=== PATIENT | female | born 1990 | race Caucasian/White ===

== ENCOUNTER 2018-09-13 22:42 | Emergency (ER) | payer OTHER, SELFPAY ==
[2018-09-13 23:15] LABS: Urine Blood 1+ (NEG); Urine Glucose NEGATIVE (NEG); Urine Protein NEGATIVE (NEG); Urine Specific Gravity 1.025 (1.005-1.030); Urine pH 6.5 (5.0-7.0)
[2018-09-13 23:26] LABS: Urine Bacteria LOADED /HPF (<20); Urine Culture Reflex Order REFLEXED; Urine RBC <5 /HPF (NONE SEEN)
--- NOTE | 2018-09-13 23:33 | ER ---
Nurse's Notes [facility] Name: Rebecca West Age: 28 yrs Sex: Female : 1990 Arrival Date: 09/13/2018 Time: 22:43 Bed 6 Private MD: Diagnosis: Urinary tract infection, site not specified Presentation: 09/13 22:51 Presenting complaint: Patient states: having sexual intercourse with boyfriend at 2200, ak1 c/o left flank pain after "feeling IUD move" pt stated she could "feel" the string after intercourse. Transition of care: patient was not received from another setting of care. Onset of symptoms was September 13, 2018. Risk Assessment: Do you want to hurt yourself or someone else? Patient reports no desire to harm self or others. Initial Sepsis Screen: Does the patient meet any 2 criteria? No. Patient's initial sepsis screen is negative. Does the patient have a suspected source of infection? No. Patient's initial sepsis screen is negative. Care prior to arrival: None. 22:51 Method Of Arrival: EMS: [facility] ak1 22:51 Acuity: MARCOS 4 ak1 Triage Assessment: 22:53 General: Appears in no apparent distress. Behavior is calm, cooperative. Pain: ak1 Complains of pain in left flank. EENT: No signs and/or symptoms were reported regarding the EENT system. Neuro: No deficits noted. Cardiovascular: No deficits noted. Respiratory: No deficits noted. GI: No signs and/or symptoms were reported involving the gastrointestinal system. : Reports possible dislodged IUD s/p sexual intercourse. Derm: No signs and/or symptoms reported regarding the dermatologic system. Musculoskeletal: No signs and/or symptoms reported regarding the musculoskeletal system. 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 - Social history:: Smoking status: Patient uses tobacco products, smokes one-half pack cigarettes per day. - Ebola Screening: : No symptoms or risks identified at this time. Screenin:54 Abuse screen: Denies threats or abuse. Denies injuries from another. Nutritional ak1 screening: No deficits noted. Tuberculosis screening: No symptoms or risk factors identified. Fall Risk None identified. Assessment: 22:50 General: Appears in no apparent distress. uncomfortable, Behavior is calm, cooperative, rr5 appropriate for age. 22:50 Pain: Complains of pain in left flank Pain does not radiate. Pain at worst was 9 out of rr5 10 on a pain scale. Quality of pain is described as aching, Pain began gradually, Is intermittent. Neuro: Level of Consciousness is awake, alert, obeys commands, Oriented to person, place, time, situation, Appropriate for age. Cardiovascular: Capillary refill < 3 seconds Patient's skin is warm and dry. Respiratory: Airway is patent Respiratory effort is even, unlabored, Respiratory pattern is regular, symmetrical. GI: No signs and/or symptoms were reported involving the gastrointestinal system. : Reports pain in left flank(s), IUD problem after sexual intercourse. EENT: No signs and/or symptoms were reported regarding the EENT system. Derm: Skin is intact, is healthy with good turgor, Skin temperature is warm. Musculoskeletal: Capillary refill < 3 seconds. 23:15 Reassessment: Patient appears in no apparent distress at this time. No changes from rr5 previously documented assessment. awaiting for result. 23:44 Reassessment: Patient appears in no apparent distress at this time. Patient is alert, rr5 oriented x 3, equal unlabored respirations, skin warm/dry/pink. discharge instruction given and explained without complaints made. Vital Signs: 22:50 BP 125 / 83; Pulse 90; Resp 16; Temp 98.9(TE); Pulse Ox 100% on R/A; Weight 49.9 kg ak1 (R); Height 5 ft. 1 in. (154.94 cm) (R); Pain 9/10; 23:44 BP 115 / 80; Pulse 90; Resp 17; Temp 99.1; Pulse Ox 100% on R/A; rr5 22:50 Body Mass Index 20.78 (49.90 kg, 154.94 cm) ak1 ED Course: 22:43 Patient arrived in ED. am2 22:50 [facility]C [facility] kb 22:50 Ted Gutiérrez MD is Attending Physician. kb 22:50 Ivon Florez, RN is Primary Nurse. ak1 22:52 Triage completed. ak1 22:53 Arm band placed on Patient placed in an exam room, on a stretcher, on pulse oximetry, ak1 Patient notified of wait time. 22:54 Patient has correct armband on for positive identification. Bed in low position. Call ak1 light in reach. Side rails up X 1. Pulse ox on. NIBP on. 23:15 Transvaginal Study Probe In Process Unspecified. EDMS 23:15 Ultrasound completed. Patient tolerated well. Notified BUSINESS SUPPORT MANAGER/PA YANIRA. sg3 23:44 No provider procedures requiring assistance completed. Patient did not have IV access rr5 during this emergency room visit. Administered Medications: 23:30 Drug: Macrobid 100 mg Route: PO; rr5 23:43 Follow up: Response: Medication administered at discharge. rr5 Outcome: 23:32 Discharge ordered by MD. kb 23:44 Discharged to home ambulatory. rr5 23:44 Condition: stable 23:44 Discharge instructions given to patient, Instructed on discharge instructions, follow up and referral plans. medication usage, Demonstrated understanding of instructions, follow-up care, medications, Prescriptions given X 1. 23:45 Patient left the ED. rr5 Addendum: 09/17/2018 10:35 Addendum: Culture Results: Positive urine culture. No further action required. Bacteria s s sensitive to prescribed antibiotic. Signatures: Dispatcher [employer] EDLA Yanira Rendon, PROCESSING ENGINEER-C PROCESSING ENGINEER-Annalisa Luna RN RN Ivon Florez, RN RN ak1 Shannon Del Toro Sarah sg3 Kam Andrade RN RN rr5
--- NOTE | 2018-09-13 23:33 | EDPHYS ---
Physician Documentation [facility] Name: Rebecca West Age: 28 yrs Sex: Female : 1990 Arrival Date: 09/13/2018 Time: 22:43 Bed 6 Private MD: ED Physician Ted Gutiérrez HPI: 09/13 23:30 This 28 yrs old Female presents to ER via EMS with complaints of IUD problem. kb 23:30 The patient presents with thinks IUD moved. Onset: The symptoms/episode began/occurred kb just prior to arrival. Modifying factors: The symptoms are alleviated by nothing, the symptoms are aggravated by sexual intercourse. Associated signs and symptoms: The patient has no apparent associated signs or symptoms. Severity of symptoms: At their worst the symptoms were moderate, in the emergency department the symptoms are unchanged. The patient's method of control includes IUD. The patient has not experienced similar symptoms in the past. The patient has not recently seen a physician. Pt reports she was having intercourse and started having sharp pains. States "I felt my IUD move out of place.". 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 - Social history:: Smoking status: Patient uses tobacco products, smokes one-half pack cigarettes per day. - Ebola Screening: : No symptoms or risks identified at this time. ROS: 23:30 Constitutional: Negative for fever, chills, and weight loss, Cardiovascular: Negative kb for chest pain, palpitations, and edema, Respiratory: Negative for shortness of breath, cough, wheezing, and pleuritic chest pain, Abdomen/GI: Negative for abdominal pain, nausea, vomiting, diarrhea, and constipation, Back: Negative for injury and pain, MS/Extremity: Negative for injury and deformity, Skin: Negative for injury, rash, and discoloration, Neuro: Negative for headache, weakness, numbness, tingling, and seizure. 23:30 : Positive for pelvic pain. Exam: 23:30 Constitutional: This is a well developed, well nourished patient who is awake, alert, kb and in no acute distress. Head/Face: Normocephalic, atraumatic. Chest/axilla: Normal chest wall appearance and motion. Nontender with no deformity. No lesions are appreciated. Cardiovascular: Regular rate and rhythm with a normal S1 and S2. No gallops, murmurs, or rubs. Normal PMI, no JVD. No pulse deficits. Respiratory: Lungs have equal breath sounds bilaterally, clear to auscultation and percussion. No rales, rhonchi or wheezes noted. No increased work of breathing, no retractions or nasal flaring. Abdomen/GI: Soft, non-tender, with normal bowel sounds. No distension or tympany. No guarding or rebound. No evidence of tenderness throughout. Back: No spinal tenderness. No costovertebral tenderness. Full range of motion. Skin: Warm, dry with normal turgor. Normal color with no rashes, no lesions, and no evidence of cellulitis. MS/ Extremity: Pulses equal, no cyanosis. Neurovascular intact. Full, normal range of motion. Neuro: Awake and alert, GCS 15, oriented to person, place, time, and situation. Cranial nerves II-XII grossly intact. Motor strength 5/5 in all extremities. Sensory grossly intact. Cerebellar exam normal. Normal gait. Vital Signs: 22:50 BP 125 / 83; Pulse 90; Resp 16; Temp 98.9(TE); Pulse Ox 100% on R/A; Weight 49.9 kg ak1 (R); Height 5 ft. 1 in. (154.94 cm) (R); Pain 9/10; 23:44 BP 115 / 80; Pulse 90; Resp 17; Temp 99.1; Pulse Ox 100% on R/A; rr5 22:50 Body Mass Index 20.78 (49.90 kg, 154.94 cm) ak1 MDM: 22:50 Patient medically screened. kb 23:29 Data reviewed: vital signs, nurses notes. Data interpreted: Pulse oximetry: on room air kb is 100 %. Interpretation: normal. Counseling: I had a detailed discussion with the patient and/or guardian regarding: the historical points, exam findings, and any diagnostic results supporting the discharge/admit diagnosis, lab results, radiology results, the need for outpatient follow up, an OB/Gyne specialist, to return to the emergency department if symptoms worsen or persist or if there are any questions or concerns that arise at home. 09/13 23:04 Order name: Urine Microscopic Only; Complete Time: 23:29 [facility] 09/13 23:11 Order name: Urine --Ancillary (enter results); Complete Time: 23:20 [facility] 09/13 22:49 Order name: Transvaginal Study Probe [facility] 09/13 23:11 Order name: Urine Dipstick--Ancillary (enter results); Complete Time: 23:20 [facility] 09/13 23:27 Order name: Urine Culture [facility] 09/13 22:50 Order name: Urine Dipstick-Ancillary (obtain specimen); Complete Time: 23:05 09/13 23:05 Order name: Urine Test (obtain specimen); Complete Time: 23:05 ak1 Administered Medications: 23:30 Drug: Macrobid 100 mg Route: PO; rr5 23:43 Follow up: Response: Medication administered at discharge. rr5 Disposition: 09/14 06:58 Co-signature as Attending Physician, Ted Gutiérrez MD I agree with the assessment and tw4 plan of care. Disposition: 09/13/18 23:32 Discharged to Home. Impression: Urinary tract infection, site not specified. - Condition is Stable. - Discharge Instructions: Urinary Tract Infection, Adult, [id number]. - Prescriptions for Macrobid 100 mg Oral Capsule - take 1 capsule by ORAL route every 12 hours for 10 days; 20 capsule. - Medication Reconciliation Form, Thank You Letter, Antibiotic Education, Prescription Opioid Use form. - Follow up: Emergency Department; When: As needed; Reason: Worsening of condition. Follow up: Private Physician; When: 2 - 3 days; Reason: Recheck today's complaints, Continuance of care, Re-evaluation by your physician. Signatures: Dispatcher [employer] [facility] Nasrin Rendon FNP-C FNP-Ivon Plata RN RN ak1 Ted Gutiérrez MD MD tw4 Kam Andrade RN RN rr5 Corrections: (The following items were deleted from the chart) 09/13 23:45 23:32 09/13/2018 23:32 Discharged to Home. Impression: Urinary tract infection, site rr5 not specified. Condition is Stable. Forms are Medication Reconciliation Form, Thank You Letter, Antibiotic Education, Prescription Opioid Use. Follow up: Emergency Department; When: As needed; Reason: Worsening of condition. Follow up: Private Physician; When: 2 - 3 days; Reason: Recheck today's complaints, Continuance of care, Re-evaluation by your physician. kb
[2018-09-13] MEDS ORDERED: NITROFURAN MACRO 100 MG CAP PO ONE (23:47)
[2018-09-14 01:13] VITALS: O2SAT 100
[2018-09-14 01:14] VITALS: BP 115/80; TEMP 99.1
--- NOTE | 2018-09-14 07:25 | RAD REPORT ---
EXAM DESCRIPTION: US - Transvaginal Study Probe - 09/13/2018 11:15 pm CLINICAL HISTORY: Pelvic pain, IUD in place Preliminary findings provided at the time of the study. COMPARISON: None. TECHNIQUE: Endovaginal sonography was performed. FINDINGS: IUD appears to be properly positioned in the fundal portion of the endometrial cavity. No endometrial mass or hematoma. Endometrial stripe is less than 5 mm. Uterus is 7.2 x 2.9 x 3.9 cm. No myometrial mass. No blood or fluid in the cul-de-sac. Both ovaries are identifiable. Doppler evaluation shows normal flow within the ovarian stroma. No fal lopian tube dilatation. There is no dominant solid or cystic ovarian or adnexal finding. IMPRESSION: Unremarkable pelvic ultrasound as detailed. IUD appears be properly positioned in the fu ndal portion of the endometrial cavity.
== END 2018-09-13 23:45 | disposition home or self-care (01) ==
LOC: ER 22:42
DX: N39.0 Urinary tract infection, site not specified (principal); F17.210 Nicotine dependence, cigarettes, uncomplicated
CPT/HCPCS: 76830; 81003; 81015; 81025; 87077; 87086; 87088; 87186; 99284

== ENCOUNTER 2019-04-05 10:37 | Emergency (ER) | payer SELFPAY ==
--- OUTSIDE RECORDS SUMMARY | 2019-04-05 10:38 | XMS REPORT | Continuity of Care Document ---
:1990 Author Organization [facility] Address [address] [place] [address] Phone tel Care Team Providers Name Role Phone WINNIE, DOC Primary Care Physician Unavailable Allergies, Adverse Reactions, Alerts No allergy information available. Medications No medication information available. Problems No problem information available. Procedures No procedure information available. Relevant Diagnostic Tests and/or Laboratory Data No known relevant diagnostic tests and/or laboratory data. Health Concerns No known health concerns documented Chief Complaint and Reason for Visit Reason for Visit "I NEED A SPOT ON MY LEG LOOKED AT" Encounters Encounter Location(s) Arrival/Admit Date Discharge/Depart Date Provider(s) Departed [place] February 28, 2019 February 28, 2019 JAYLYN TRIPLETT MD [facility] 11:28am 12:47pm Hospital Assessments No Assessments Information Available Functional Status No Functional Status information available Goals No Goals Information Available Immunizations No Immunization Information Available Mental Status No Mental Status Information Available Medical Equipment No Medical Equipment Information available Insurance Providers Guarantor GALI BRAR Address [facility] [id number] Contact Info. Payer Policy Id Coverage Id Subscriber's Subscriber Id Effective Expiration Name Date Date MEDICAID EMRE BRARING GALI [facility] MAYKEL, EMREING GALI Social History Smoking Status Status Date of Observation Assigned Sex Female Vital Signs No vital signs result information available.
--- OUTSIDE RECORDS SUMMARY | 2019-04-05 10:38 | XMS REPORT ---
:1990 [facility] Address [address] [place] [address] [address] [place] [address] Care Team Providers Name Role Phone MICHELLE FARLEY Unavailable Unavailable Payers Payer Name Policy Type Policy Number Effective Date Expiration Date Problems This patient has no known problems. Allergies, Adverse Reactions, Alerts Allergy Allergy Status Severity Reaction(s) Onset Inactive Treating Comments Name Type Date Date Clinician No Known DA Active U 2014-12 Allergies -28 00:00:0 0 Medications This patient has no known medications. Results Test Description Test Time Test Comments Text Results Atomic Results Result Comments WOUND CULTURE + GRAM STAIN 2019-02-25 09:25:00 Test Item Value Reference Range Comments CULTURE (BEAKER) (test STAPHYLOCOCCUS AUREUS 3+ Staphylococcus [id number]=[id number]) aureusMethicillin Resistant Staphylococcus aureus isolated. Clindamycin (test code=10) Erythromycin (test code=4) Linezolid (test code=40) Oxacillin (test code=14) Rifampin (test code=43) Tetracycline (test code=2) Trimethoprim + Sulfamethoxazole (test code=47) Vancomycin (test code=13) GRAM STAIN RESULT (BEAKER) <1+ WBCs (test lxjs=3272) GRAM STAIN RESULT (BEAKER) No organisms seen (test ffxh=200812)
--- NOTE | 2019-04-05 12:32 | ER ---
Nurse's Notes [facility] Name: Rebecca West Age: 28 yrs Sex: Female : 1990 Arrival Date: 04/05/2019 Time: 10:39 Bed 24 Private MD: None, None Diagnosis: Dental caries Presentation: 04/05 10:56 Presenting complaint: Patient states: Pain to right jaw for the past 3 days. Patient aj1 reports that she has a bad tooth on that side. Denies fever. Transition of care: patient was not received from another setting of care. Onset of symptoms was 2018. Risk Assessment: Do you want to hurt yourself or someone else? Patient reports no desire to harm self or others. Initial Sepsis Screen: Does the patient meet any 2 criteria? HR > 90 bpm. No. Patient's initial sepsis screen is negative. Does the patient have a suspected source of infection? Yes: Other: possible infected tooth. Care prior to arrival: None. 10:56 Method Of Arrival: Ambulatory aj 10:56 Acuity: MARCOS 4 aj1 Triage Assessment: 10:58 General: Appears in no apparent distress. uncomfortable, Behavior is calm, cooperative, aj1 appropriate for age. Pain: Complains of pain in right jaw Pain currently is 10 out of 10 on a pain scale. EENT: Reports pain in right jaw. Neuro: Level of Consciousness is awake, alert, obeys commands. Cardiovascular: Patient's skin is warm and dry. Respiratory: Airway is patent Respiratory effort is even, unlabored, Respiratory pattern is regular, symmetrical. GERIATRICIAN: 10:58 LMP N/A - control method aj1 Historical: - Allergies: 10:58 No Known Allergies; aj1 - Home Meds: 10:58 None [Active]; aj1 - PMHx: 10:58 chronic uti; aj1 - PSHx: 10:58 None; aj1 - Immunization history:: Flu vaccine is not up to date. - Social history:: Smoking status: Patient uses tobacco products, smokes one-half pack cigarettes per day. - Ebola Screening: : Patient denies travel to an Ebola-affected area in the 21 days before illness onset. - Family history:: not pertinent. - Hospitalizations: : No recent hospitalization is reported. Screenin:00 Abuse screen: Denies threats or abuse. Denies injuries from another. Nutritional ca1 screening: No deficits noted. Tuberculosis screening: No symptoms or risk factors identified. Fall Risk None identified. Assessment: 12:00 General: Appears in no apparent distress. comfortable, Behavior is calm, cooperative, ca1 appropriate for age. Pain: Complains of pain in face and right jaw Pain currently is 10 out of 10 on a pain scale. Pain began 2-3 days ago. Is continuous. Neuro: Level of Consciousness is awake, alert, obeys commands, Oriented to person, place, time, situation, Appropriate for age. EENT: Dental caries noted in lower right first molar (#30), lower right second molar (#31) and lower right third molar (#32). Derm: Skin is intact, is healthy with good turgor, Skin is pink, warm \T\ dry. Musculoskeletal: Circulation, motion, and sensation intact. Capillary refill < 3 seconds, Range of motion: intact in all extremities. 12:50 Reassessment: Patient appears in no apparent distress at this time. Patient is alert, ca1 oriented x 3, equal unlabored respirations, skin warm/dry/pink. Vital Signs: 10:58 BP 115 / 74; Pulse 92; Resp 18; Temp 98.0; Pulse Ox 100% on R/A; Weight 49.9 kg (R); aj1 Height 5 ft. 1 in. (154.94 cm) (R); Pain 10/10; 12:00 BP 121 / 81; Pulse 89; Resp 16 S; Pulse Ox 100% on R/A; ca1 10:58 Body Mass Index 20.78 (49.90 kg, 154.94 cm) aj1 ED Course: 10:39 Patient arrived in ED. ag5 10:39 None, None is Private Physician. ag5 10:58 Triage completed. aj1 10:58 Arm band placed on Patient placed in waiting room, Patient notified of wait time. aj1 11:43 Thomas Desai MD is Attending Physician. rn 11:50 Kelley Gilbert, SANTO is Primary Nurse. ca1 12:00 Patient has correct armband on for positive identification. Bed in low position. Call ca1 light in reach. Pulse ox on. NIBP on. 12:00 No provider procedures requiring assistance completed. Patient did not have IV access ca1 during this emergency room visit. Administered Medications: No medications were administered Outcome: 12:31 Discharge ordered by . rn 12:50 Discharged to home ambulatory. ca1 12:50 Condition: stable 12:50 Discharge instructions given to patient, Instructed on discharge instructions, follow up and referral plans. no drinking with medication, no driving heavy equipment, medication usage, Demonstrated understanding of instructions, follow-up care, medications, Prescriptions given X 2. 12:51 Patient left the ED. ca1 Signatures: Olga Seymour RN RN aj1 Thomas Desai MD MD rn Kelley Gilbert RN RN ca1 Karen Olsen ag5
--- NOTE | 2019-04-05 12:32 | EDPHYS ---
Physician Documentation [facility] Name: Rebecca West Age: 28 yrs Sex: Female : 1990 Arrival Date: 04/05/2019 Time: 10:39 Bed 24 Private MD: None, None ED Physician Thomas Desai HPI: 04/05 12:28 This 28 yrs old Female presents to ER via Ambulatory with complaints of rn Toothache. 12:28 The patient presents with pain. The problem is located in the right jaw. Onset: The rn symptoms/episode began/occurred at an unknown time. Modifying factors: The symptoms are alleviated by nothing, the symptoms are aggravated by chewing, cold fluids. Severity of symptoms: At their worst the symptoms were moderate, in the emergency department the symptoms are unchanged. The patient has experienced similar episodes in the past. The patient has not recently seen a physician. Reports months of tooth problems, has not had money to go to dentist, no new symptoms other than pain worse for last 3 days, no swelling, no drainage. . 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 - Social history:: Smoking status: Patient uses tobacco products, smokes one-half pack cigarettes per day. - Ebola Screening: : Patient denies travel to an Ebola-affected area in the 21 days before illness onset. - Family history:: not pertinent. - Hospitalizations: : No recent hospitalization is reported. ROS: 12:28 Constitutional: Negative for fever, chills, and weight loss, ENT: + toothache Neck: rn Negative for injury, pain, and swelling. Exam: 12:28 Constitutional: This is a well developed, well nourished patient who is awake, alert, rn and in no acute distress. ENT: Poor dentition, no abscess or drainage, no buccal fluctuance Vital Signs: 10:58 BP 115 / 74; Pulse 92; Resp 18; Temp 98.0; Pulse Ox 100% on R/A; Weight 49.9 kg (R); aj1 Height 5 ft. 1 in. (154.94 cm) (R); Pain 10/10; 12:00 BP 121 / 81; Pulse 89; Resp 16 S; Pulse Ox 100% on R/A; ca1 10:58 Body Mass Index 20.78 (49.90 kg, 154.94 cm) aj1 MDM: 11:43 Patient medically screened. rn 12:28 Differential diagnosis: dental caries. Data reviewed: vital signs, nurses notes, and as rn a result, I will discharge patient. Counseling: I had a detailed discussion with the patient and/or guardian regarding: the historical points, exam findings, and any diagnostic results supporting the discharge/admit diagnosis, the need for outpatient follow up, to return to the emergency department if symptoms worsen or persist or if there are any questions or concerns that arise at home. Response to treatment: There is no appreciated change of the patient's symptoms at this time, and as a result, I will discharge patient. Special discussion: I discussed with the patient/guardian in detail that at this point there is no indication for admission to the hospital. It is understood, however, that if the symptoms persist or worsen the patient needs to return immediately for re-evaluation. Based on the history and exam findings, there is no indication for further emergent testing or inpatient evaluation. I discussed with the patient/guardian the need to see a dentist for further evaluation of the symptoms. Administered Medications: No medications were administered Disposition: 04/05/19 12:31 Discharged to Home. Impression: Dental caries. - Condition is Stable. - Discharge Instructions: Dental Pain. - Prescriptions for Amoxicillin 875 mg Oral Tablet - take 1 tablet by ORAL route every 12 hours for 10 days; 20 tablet. Ultram 50 mg Oral Tablet - take 1 tablet by ORAL route every 6 hours As needed; 12 tablet. - Medication Reconciliation Form, Thank You Letter, Antibiotic Education, Prescription Opioid Use form. - Follow up: Private Physician; When: As needed; Reason: Recheck today's complaints, Re-evaluation by your physician. - Problem is chronic. - Symptoms are unchanged. Signatures: Olga Seymour RN RN aj1 Thomas Desai MD MD rn Acob, SANTO Benson RN ca1 Corrections: (The following items were deleted from the chart) 12:51 12:31 04/05/2019 12:31 Discharged to Home. Impression: Dental caries. Condition is ca1 Stable. Forms are Medication Reconciliation Form, Thank You Letter, Antibiotic Education, Prescription Opioid Use. Follow up: Private Physician; When: As needed; Reason: Recheck today's complaints, Re-evaluation by your physician. Problem is chronic. Symptoms are unchanged. rn
[2019-04-05 13:06] VITALS: TEMP 98; O2SAT 100
[2019-04-05 13:08] VITALS: BP 121/81
== END 2019-04-05 12:51 | disposition home or self-care (01) ==
LOC: ER 10:37
DX: K02.9 Dental caries, unspecified (principal); F17.210 Nicotine dependence, cigarettes, uncomplicated
CPT/HCPCS: 99283

== ENCOUNTER 2019-06-25 01:53 | Emergency (ER) | payer SELFPAY ==
--- OUTSIDE RECORDS SUMMARY | 2019-06-25 01:55 | XMS REPORT ---
:1990 [facility] Address [address] [place] [address] [address]. [address] [place] [address] Care Team Providers Name Role Phone MICHELLE FARLEY Unavailable Unavailable Payers Payer Name Policy Type Policy Number Effective Date Expiration Date Problems This patient has no known problems. Allergies, Adverse Reactions, Alerts Allergy Allergy Status Severity Reaction(s) Onset Inactive Treating Comments Name Type Date Date Clinician No Known DA Active U 2014-12 Allergies - 00:00:0 0 Medications This patient has no known medications. Results Test Description Test Time Test Comments Text Results Atomic Results Result Comments - XR 2019-04-24 FAX: Valarie Sorto NP [phone] [place]: E St: CHEST 17:17:00 PRE 2 V Patient Name: GALI BRAR Unit No: [id number] EXAMS: CPT CODE: [id number] XR CHEST 2 V [id number] Exam: Chest 2 views Location: H 12 History: fever Comparison: . Findings: The lungs are clear. No infiltrate or effusion is seen. The pulmonary vasculature is normal. The heart size is normal. The mediastinal silhouette is unremarkable. The bony thorax is intact. Impression: No acute disease. Electronically Signed by Leonard Mckeon MD on 2018 at 1717 Reported and signed by: Leonard Mckeon MD CC: Valarie Gonzáles BAIT DIGGER Dictated Date/Time: 04/24/2019 (142)Technologist: Antolin Best Transcribed Date/Time: 04/24/2019 (605 ) By: J Luis Orig Print D/T: S: 04/24/2019 (6918) [facility] [place] NAME: SHARON[address] PHYS: Valarie [place] [address] : 1990 AGE: 28 SEX: F LOC: B.ERS PHONE #: [phone] EXAM DATE: 04/24/2019 STATUS: PRE ER FAX #: [phone] RAD NO: DC Dt: PAGE 1 Signed Report AG STREP GROUP A (THROAT) 2019-04-24 16:29:00 Test Item Value Reference Range Comments AG STREP GROUP A (THROAT) NEG SCREEN NEG STREP ANTIGEN SCREENING:Antigen (test code=STREPA) screening test; suggest confirmation by culture.INTERPRETATION OF STREP ANTIGEN RESULTS:WHEN STREP GROUP A ANTIGEN IS NOT DETECTED, THE NEGATIVERESULT DOES NOT RULE OUT THE PRESENCE OF STREP GROUP A.WHEN STREP GROUP A ANTIGEN IS DETECTED, THE POSITIVE RESULTIS SIGNIFICANT. NEGATIVE RESULTS REFLEX A CULTURE. FORNEGATIVE RESULTS A CULTURE IS IN PROGRESS, RESULT TO FOLLOW. WOUND CULTURE + GRAM [id number] 09:25:00 Test Item Value Reference Range Comments CULTURE (BEAKER) (test STAPHYLOCOCCUS AUREUS 3+ Staphylococcus zbje=0736) aureusMethicillin Resistant Staphylococcus aureus isolated. Clindamycin (test code=10) Erythromycin (test code=4) Linezolid (test code=40) Oxacillin (test code=14) Rifampin (test code=43) Tetracycline (test code=2) Trimethoprim + Sulfamethoxazole (test code=47) Vancomycin (test code=13) GRAM STAIN RESULT <1+ WBCs (BEAKER) (test ddla=7160) GRAM STAIN RESULT No organisms seen ([place]) (test situ=800620)
[2019-06-25] MEDS ORDERED: BISACODYL 10 MG RECTAL SUPP ONE (03:00)
[2019-06-25] MEDS ORDERED: MAGNESIUM CITRATE 300 ML BOT ONE (03:00)
[2019-06-25 03:08] LABS: Urine Blood NEGATIVE (NEG); Urine Glucose NEGATIVE (NEG); Urine Protein NEGATIVE (NEG); Urine Specific Gravity 1.025 (1.005-1.030)
[2019-06-25 03:20] LABS: Urine Amorphous Sediment 2+ /HPF (NONE SEEN); Urine Bacteria LOADED /HPF (<20); Urine Culture Reflex Order NOT NEEDED; Urine Mucus 2+ /HPF (NONE SEEN); Urine RBC <5 /HPF (NONE SEEN)
--- NOTE | 2019-06-25 03:58 | EDPHYS ---
Physician Documentation [facility] Name: Rebecca West Age: 29 yrs Sex: Female : 1990 Arrival Date: 06/25/2019 Time: 01:57 Bed 5 Private MD: ED Physician Gregory Richey HPI: 06/25 02:22 This 29 yrs old Female presents to ER via Ambulatory with complaints of Pain pkl With Urination, Constipation. 02:22 The patient complains of pain in the bilateral flanks and suprapubic with urination. pkl The pain does not radiate. Onset: The symptoms/episode began/occurred 3 day(s) ago. Associated signs and symptoms: Pertinent positives: constipation. H/O frequent UTI. Historical: - Allergies: 02:06 No Known Allergies; sg - PMHx: 02:06 chronic uti; sg - PSHx: 02:06 None; sg - Immunization history:: Adult Immunizations up to date. - Social history:: Smoking status: Patient reports the use of cigarette tobacco products. ROS: 02:22 Eyes: Negative for injury, pain, redness, and discharge, ENT: Negative for injury, pkl pain, and discharge, Neck: Negative for injury, pain, and swelling, Cardiovascular: Negative for chest pain, palpitations, and edema, Respiratory: Negative for shortness of breath, cough, wheezing, and pleuritic chest pain, Abdomen/GI: Negative for abdominal pain, nausea, vomiting, diarrhea, and constipation. 02:22 Back: Positive for flank pain, bilaterally. 02:22 : Positive for burning with urination. 02:22 MS/extremity: Negative for acute changes. 02:22 Skin: Negative for rash. 02:22 Neuro: Negative for altered mental status. Exam: 02:22 Head/Face: Normocephalic, atraumatic. Eyes: Pupils equal round and reactive to light, pkl extra-ocular motions intact. Lids and lashes normal. Conjunctiva and sclera are non-icteric and not injected. Cornea within normal limits. Periorbital areas with no swelling, redness, or edema. ENT: Nares patent. No nasal discharge, no septal abnormalities noted. Tympanic membranes are normal and external auditory canals are clear. Oropharynx with no redness, swelling, or masses, exudates, or evidence of obstruction, uvula midline. Mucous membranes moist. Neck: Trachea midline, no thyromegaly or masses palpated, and no cervical lymphadenopathy. Supple, full range of motion without nuchal rigidity, or vertebral point tenderness. No Meningismus. Chest/axilla: Normal chest wall appearance and motion. Nontender with no deformity. No lesions are appreciated. Cardiovascular: Regular rate and rhythm with a normal S1 and S2. No gallops, murmurs, or rubs. Normal PMI, no JVD. No pulse deficits. Respiratory: Lungs have equal breath sounds bilaterally, clear to auscultation and percussion. No rales, rhonchi or wheezes noted. No increased work of breathing, no retractions or nasal flaring. Abdomen/GI: Soft, non-tender, with normal bowel sounds. No distension or tympany. No guarding or rebound. No evidence of tenderness throughout. Back: No spinal tenderness. No costovertebral tenderness. Full range of motion. Skin: Warm, dry with normal turgor. Normal color with no rashes, no lesions, and no evidence of cellulitis. MS/ Extremity: Pulses equal, no cyanosis. Neurovascular intact. Full, normal range of motion. Neuro: Awake and alert, GCS 15, oriented to person, place, time, and situation. Cranial nerves II-XII grossly intact. Motor strength 5/5 in all extremities. Sensory grossly intact. Cerebellar exam normal. Normal gait. Vital Signs: 02:49 BP 115 / 81; Pulse 87; Resp 18; Temp 97.7; Pulse Ox 100% ; rv 03:58 BP 118 / 79; Pulse 86; Resp 15; Temp 97.6; Pulse Ox 100% ; Pain 0/10; rr5 03:58 Pain 0/10; rv 03:59 Pain 0/10; rv MDM: 02:04 Patient medically screened. pkl 03:56 Data reviewed: vital signs, nurses notes, lab test result(s). ED course: Patient had pkl bowel movement in ER. Feeling better. 06/25 02:51 Order name: Urine Microscopic Only; Complete Time: 03:34 rv 06/25 02:51 Order name: Urine Culture rv 06/25 03:00 Order name: Urine Dipstick--Ancillary (enter results); Complete Time: 03:34 mw2 06/25 03:00 Order name: Urine --Ancillary (enter results); Complete Time: 03:34 mw2 Administered Medications: 02:59 Drug: Dulcolax Suppository 10 mg Route: KS; rr5 03:59 Follow up: Pain 0/10 Adult; Response: No adverse reaction; Marked relief of symptoms rv 02:59 Drug: Magnesium Citrate Liquid 300 ml Route: PO; rr5 03:58 Follow up: Pain 0/10 Adult; Response: No adverse reaction; Marked relief of symptoms rv Disposition: 06/25/19 03:58 Discharged to Home. Impression: Urinary tract infection. Constipation. - Condition is Stable. - Prescriptions for Cipro 500 mg Oral Tablet - take 1 tablet by ORAL route every 12 hours for 5 days; 10 tablet. - Medication Reconciliation Form, Thank You Letter, Antibiotic Education, Prescription Opioid Use form. - Follow up: Private Physician; When: 2 - 3 days; Reason: Re-evaluation by your physician. - Problem is new. - Symptoms have improved. Signatures: Dispatcher [employer] EDAmor Diaz RN RN sg Gregory Richey MD MD pkl Kevin Rowan RN RN rv Kam Andrade RN RN rr5 Corrections: (The following items were deleted from the chart) 04:07 03:58 06/25/2019 03:58 Discharged to Home. Impression: Urinary tract infection. rv Constipation. Condition is Stable. Forms are Medication Reconciliation Form, Thank You Letter, Antibiotic Education, Prescription Opioid Use. Follow up: Private Physician; When: 2 - 3 days; Reason: Re-evaluation by your physician. Problem is new. Symptoms have improved. pkl
--- NOTE | 2019-06-25 03:58 | ER ---
Nurse's Notes [facility] Name: Rebecca West Age: 29 yrs Sex: Female : 1990 Arrival Date: 06/25/2019 Time: 01:57 Bed 5 Private MD: Diagnosis: Urinary tract infection. Constipation Presentation: 06/25 02:07 Chief complaint: Patient states: Pain in bilateral flanks, suprapubic area, and with sg urination, pt reports constipation x 3 days or longer, pt states that she feels stool but is unable to push the BM out without having too much pain. Coronavirus screen: The patient has NOT traveled to [place] in the past 14 days. The patient has NOT had contact with known and/or suspected case of Coronavirus. Ebola Screen: Patient negative for fever greater than or equal to 101.5 degrees Fahrenheit, and additional compatible Ebola Virus Disease symptoms Patient denies exposure to infectious person. Patient denies travel to an Ebola-affected area in the 21 days before illness onset. No symptoms or risks identified at this time. Initial Sepsis Screen: Does the patient meet any 2 criteria? No. Patient's initial sepsis screen is negative. Does the patient have a suspected source of infection? Yes: Dysuria/Frequency/Urgency/UTI. Risk Assessment: Do you want to hurt yourself or someone else? Patient reports no desire to harm self or others. 02:07 Method Of Arrival: Ambulatory sg 02:07 Acuity: MARCOS 3 sg 04:00 Onset of symptoms is unknown. rv Historical: - Allergies: 02:06 No Known Allergies; sg - PMHx: 02:06 chronic uti; sg - PSHx: 02:06 None; sg - Immunization history:: Adult Immunizations up to date. - Social history:: Smoking status: Patient reports the use of cigarette tobacco products. Screenin:31 Abuse screen: Denies threats or abuse. Denies injuries from another. Nutritional rr5 screening: No deficits noted. Tuberculosis screening: No symptoms or risk factors identified. Fall Risk None identified. Total Fowler Fall Scale indicates No Risk (0-24 pts). Assessment: 01:57 General: Appears in no apparent distress. slender, well groomed, well developed, well sg nourished, Behavior is calm, cooperative, appropriate for age. Pain: Complains of pain in left mid back, right mid back, gluteal cleft and suprapubic area Quality of pain is described as aching. Neuro: Level of Consciousness is awake, alert, obeys commands, Oriented to person, place, time. Cardiovascular: Capillary refill is brisk in bilateral fingers Patient's skin is warm and dry. Chest pain is denied. Respiratory: Airway is patent Respiratory effort is even, unlabored, Respiratory pattern is regular, symmetrical. GI: Abdomen is flat, non-distended, Bowel sounds present X 4 quads. Abd is soft X 4 quads Reports lower abdominal pain, constipation. : Reports pain in bilateral in suprapubic area flank(s), with urination. EENT: No signs and/or symptoms were reported regarding the EENT system. Derm: Skin is pink, warm \T\ dry. Musculoskeletal: Circulation, motion, and sensation intact. Range of motion: intact in all extremities. 03:59 Reassessment: Patient appears in no apparent distress at this time. Patient and/or rv family updated on plan of care and expected duration. Pain level reassessed. Patient is alert, oriented x 3, equal unlabored respirations, skin warm/dry/pink. PATIENT WAS ABLE TO MOVE HER BOWELS. STATED TO BE FEELING BETTER. Patient denies pain at this time. Patient states feeling better. Patient states symptoms have improved. Vital Signs: 02:49 BP 115 / 81; Pulse 87; Resp 18; Temp 97.7; Pulse Ox 100% ; rv 03:58 BP 118 / 79; Pulse 86; Resp 15; Temp 97.6; Pulse Ox 100% ; Pain 0/10; rr5 03:58 Pain 0/10; rv 03:59 Pain 0/10; rv ED Course: 01:57 Patient arrived in ED. ag3 02:03 Gregory Richey MD is Attending Physician. pkl 02:07 Kevin Rowan RN is Primary Nurse. rv 02:07 Arm band placed on. sg 02:08 Triage completed. sg 02:32 Patient has correct armband on for positive identification. Placed in gown. Bed in low rr5 position. Call light in reach. Pulse ox on. NIBP on. 02:54 Urine collected: clean catch specimen, cloudy. sg 03:59 No provider procedures requiring assistance completed. Patient did not have IV access rv during this emergency room visit. Administered Medications: 02:59 Drug: Dulcolax Suppository 10 mg Route: AL; rr5 03:59 Follow up: Pain 0/10 Adult; Response: No adverse reaction; Marked relief of symptoms rv 02:59 Drug: Magnesium Citrate Liquid 300 ml Route: PO; rr5 03:58 Follow up: Pain 0/10 Adult; Response: No adverse reaction; Marked relief of symptoms rv Outcome: 03:58 Discharge ordered by . quang 03:59 Discharged to home ambulatory, with friend. rv 03:59 Condition: good 04:00 Discharge instructions given to patient, Instructed on discharge instructions, follow rv up and referral plans. Demonstrated understanding of instructions, follow-up care. 04:00 Instructed on medication usage, Demonstrated understanding of medications, rv Prescriptions given X 1. 04:07 Patient left the ED. rv Addendum: 06/30/2019 15:55 Addendum: Culture Results: Positive urine culture. No further action required. Bacteria s s sensitive to prescribed antibiotic. Signatures: Amor Wayne, RN Gregory Dominguez MD MD pkl Smirch, Shelby RN SANTO Kevin Rowan RN RN rv Starr Joseph Raymond, RN RN rr5
[2019-06-25 04:13] VITALS: O2SAT 100
[2019-06-25 04:14] VITALS: BP 118/79; TEMP 97.6
== END 2019-06-25 04:07 | disposition home or self-care (01) ==
LOC: ER 01:53
DX: N39.0 Urinary tract infection, site not specified (principal); K59.00 Constipation, unspecified; F17.210 Nicotine dependence, cigarettes, uncomplicated
CPT/HCPCS: 81003; 81015; 81025; 87077; 87086; 87088; 87186; 99284

== ENCOUNTER 2019-07-12 | Emergency (ER) | payer SELFPAY ==
--- OUTSIDE RECORDS SUMMARY | 2019-07-12 14:05 | XMS REPORT ---
:1990 [facility] Address [address] [place] [address] [address]. [address] [place] [address] Care Team Providers Name Role Phone MICHELLE FARLEY Unavailable Unavailable Payers Payer Name Policy Type Policy Number Effective Date Expiration Date Problems This patient has no known problems. Allergies, Adverse Reactions, Alerts Allergy Allergy Status Severity Reaction(s) Onset Inactive Treating Comments Name Type Date Date Clinician No Known DA Active U 2014-12 Allergies 00:00:0 0 Medications This patient has no known medications. Results Test Description Test Time Test Comments Text Results Atomic Results Result Comments - XR 2019-04-24 FAX: Valarie Sorto NP [phone] [place]: E St: CHEST 17:17:00 PRE 2 V Patient Name: GALI BRAR Unit No: [id number] EXAMS: CPT CODE: [id number] XR CHEST 2 V [id number] Exam: Chest 2 views Location: H 12 [...] by: Leonard Mckeon MD CC: Valarie Gonzáles NP Dictated Date/Time: 04/24/2019 (1716)Technologist: Antolin Best Transcribed Date/Time: 04/24/2019 (419 ) By: J Luis Orig Print D/T: S: 04/24/2019 (3547) [facility] [place] NAME: MAYKEL[address] PHYS: Valarie [place] [address] : 1990 AGE: 28 SEX: F LOC: B.ERS PHONE #: [phone] EXAM DATE: 04/24/2019 STATUS: PRE ER FAX #: [phone] RAD NO: DC Dt: PAGE 1 Signed [...] RESULT TO FOLLOW. WOUND CULTURE + GRAM [id number] 09:25:00 Test Item Value Reference Range Comments CULTURE (BEAKER) (test STAPHYLOCOCCUS AUREUS 3+ Staphylococcus tuak=2012) aureusMethicillin Resistant Staphylococcus aureus isolated. Clindamycin (test code=10) Erythromycin (test code=4) Linezolid (test code=40) Oxacillin (test code=14) Rifampin (test code=43) Tetracycline (test code=2) Trimethoprim + Sulfamethoxazole (test code=47) Vancomycin (test code=13) GRAM STAIN RESULT <1+ WBCs (BEAKER) (test pdup=6895) GRAM STAIN RESULT No organisms seen (BEAKER) (test xnhm=803388)
--- NOTE | 2019-07-12 15:08 | ER ---
Nurse's Notes [facility] [place] Name: Rebecca West Age: 29 yrs Sex: Female : 1990 Arrival Date: 07/12/2019 Time: 14:05 Bed External Waiting Private MD: Diagnosis: Assessment: 07/11 14:16 Reassessment: pt not in lobby when called. iw 14:25 Reassessment: pt not in lobby. iw ED Course: 14:05 Patient arrived in ED. ag5 15:07 Bernadette English, RN is Primary Nurse. iw Administered Medications: No medications were administered Outcome: 15:07 Patient left the ED. iw 16:02 Eloped from waiting room. iw Signatures: Bernadette English, RN RN Karen Olsen ag5
== END 2019-07-12 15:07 | disposition left against medical advice (07) ==
DX: Z53.21 Procedure and treatment not carried out due to patient leaving prior to being seen by health care provider (principal)

== ENCOUNTER 2019-07-13 17:07 | Emergency (ER) | payer SELFPAY ==
--- OUTSIDE RECORDS SUMMARY | 2019-07-13 17:10 | XMS REPORT ---
:1990 [facility] Address [address] [place] [address] [address]. [address] [place] [address] Care Team Providers Name Role Phone MICHELLE [...] - XR 2019-04-24 FAX: Valarie Sorto NP [phone] [place]: E St: CHEST 17:17:00 PRE 2 V Patient Name: GALI BRAR Unit No: [id number] EXAMS: CPT CODE: [id number] XR CHEST 2 V [id number] Exam: Chest 2 views Location: H 12 [...] 04/24/2019 (1716)Technologist: Antolin Best Transcribed Date/Time: 04/24/2019 (541 ) By: J Luis Orig Print D/T: S: 04/24/2019 (1971) [facility] [place] NAME: MAYKEL[address] PHYS: Valarie [place] [address] : 1990 AGE: 28 SEX: F LOC: B.ERS PHONE #: [phone] EXAM DATE: 04/24/2019 STATUS: PRE ER FAX #: [phone] RAD NO: DC Dt: PAGE 1 Signed [...] RESULT TO FOLLOW. WOUND CULTURE + GRAM [id number] 09:25:00 Test Item Value Reference Range Comments CULTURE (BEAKER) (test STAPHYLOCOCCUS AUREUS 3+ Staphylococcus gmca=3383) aureusMethicillin Resistant Staphylococcus aureus isolated. Clindamycin (test code=10) Erythromycin (test code=4) Linezolid (test code=40) Oxacillin (test code=14) Rifampin (test code=43) Tetracycline (test code=2) Trimethoprim + Sulfamethoxazole (test code=47) Vancomycin (test code=13) GRAM STAIN RESULT <1+ WBCs (BEAKER) (test gssl=5885) GRAM STAIN RESULT No organisms seen (BEAKER) (test qtlp=324521)
[2019-07-13] MEDS ORDERED: ONDANSETRON 4 MG (ODT) TAB ONE (17:48)
[2019-07-13] MEDS ORDERED: AMOX/K CLAV 875 MG TAB ONE (17:48)
--- NOTE | 2019-07-13 17:49 | ER ---
Nurse's Notes [facility] Name: Rebecca West Age: 29 yrs Sex: Female : 1990 Arrival Date: 07/13/2019 Time: 17:10 Bed 24 Private MD: Diagnosis: Dental caries;Dental caries, unspecified Presentation: 07/12 17:18 Chief complaint: Patient states: Toothache x 2 days. Reports nausea and cough for about ca1 the same time. Denies fever. Coronavirus screen: The patient has NOT traveled to a country currently being monitored by the [facility] within the last 14 days. The patient has NOT had contact with any known and/or suspected case of coronavirus. Ebola Screen: Patient negative for fever greater than or equal to 101.5 degrees Fahrenheit, and additional compatible Ebola Virus Disease symptoms Patient denies exposure to infectious person. Patient denies travel to an Ebola-affected area in the 21 days before illness onset. No symptoms or risks identified at this time. Initial Sepsis Screen: Does the patient meet any 2 criteria? No. Patient's initial sepsis screen is negative. Does the patient have a suspected source of infection? No. Patient's initial sepsis screen is negative. Risk Assessment: Do you want to hurt yourself or someone else? Patient reports no desire to harm self or others. Onset of symptoms was July 13, 2019. 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 - Social history:: Smoking status: Patient reports the use of cigarette tobacco products, smokes one-half pack cigarettes per day. - Family history:: not pertinent. Screenin:52 Abuse screen: Denies threats or abuse. Nutritional screening: No deficits noted. vc Tuberculosis screening: No symptoms or risk factors identified. Fall Risk None identified. Assessment: 17:50 General: Appears in no apparent distress. comfortable, Behavior is calm, cooperative, vc appropriate for age. Pain: Complains of pain in right jaw. Neuro: Level of Consciousness is awake, alert, obeys commands, Oriented to person, place, time, situation, Appropriate for age. Cardiovascular: Capillary refill < 3 seconds Patient's skin is warm and dry. Respiratory: Airway is patent Respiratory effort is even, unlabored, Respiratory pattern is regular, symmetrical. GI: No signs and/or symptoms were reported involving the gastrointestinal system. : No signs and/or symptoms were reported regarding the genitourinary system. EENT: Reports pain in right jaw. Derm: Skin temperature is warm. Musculoskeletal: Circulation, motion, and sensation intact. Range of motion: intact in all extremities. Vital Signs: 17:18 BP 113 / 74; Pulse 99; Resp 17 S; Temp 98.7(TE); Pulse Ox 100% on R/A; Weight 49.9 kg ca1 (R); Height 5 ft. 1 in. (154.94 cm) (R); Pain 6/10; 17:18 Body Mass Index 20.78 (49.90 kg, 154.94 cm) ca1 ED Course: 17:10 Patient arrived in ED. rg4 17:18 Rashid Goyal MD is Attending Physician. patty 17:21 Triage completed. ca1 17:21 Arm band placed on right wrist. ca1 17:25 Mitzi Denton, RN is Primary Nurse. vc 17:30 Patient has correct armband on for positive identification. Bed in low position. vc 17:47 Jame Leach DDS is Referral Physician. patty 17:53 No provider procedures requiring assistance completed. Patient did not have IV access vc during this emergency room visit. Administered Medications: 17:47 Drug: Augmentin 875 mg Route: PO; vc 18:00 Follow up: Response: No adverse reaction; Nausea is decreased vc 17:47 Drug: Zofran (Ondansetron) 4 mg Route: PO; vc 17:59 Follow up: Response: No adverse reaction; Nausea is decreased vc Outcome: 17:48 Discharge ordered by . patty 17:53 Discharged to home ambulatory. vc 17:53 Condition: good 17:53 Discharge instructions given to patient, Instructed on discharge instructions, follow up and referral plans. medication usage, Demonstrated understanding of instructions, follow-up care, medications, Prescriptions given X 3. 17:59 Patient left the ED. vc Signatures: Rashid Goyal MD MD cha Garcia, Rubi rg4 Kelley Gilbert, RN RN ca1 Mitzi Denton, SANTO RN vc
--- NOTE | 2019-07-13 17:49 | EDPHYS ---
Physician Documentation [facility] Name: Rebecca West Age: 29 yrs Sex: Female : 1990 Arrival Date: 07/13/2019 Time: 17:10 Bed 24 Private MD: ED Physician Rashid Goyal HPI: 07/12 17:42 This 29 yrs old Female presents to ER via Ambulatory with complaints of patty Toothache, Nausea, Cough, BODY ACHES. 17:42 The patient presents with broken tooth/teeth, pain, redness, swelling. The problem is patty located in the right jaw. Onset: The symptoms/episode began/occurred 2 day(s) ago. Duration: The symptoms are continuous, and are steadily getting worse. Modifying factors: The symptoms are alleviated by nothing, the symptoms are aggravated by chewing, talking. Associated signs and symptoms: The patient has no apparent associated signs or symptoms. Severity of symptoms: At their worst the symptoms were mild, in the emergency department the symptoms have resolved. The patient has not experienced similar symptoms in the past. 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 - Social history:: Smoking status: Patient reports the use of cigarette tobacco products, smokes one-half pack cigarettes per day. - Family history:: not pertinent. ROS: 17:42 Constitutional: Negative for fever, chills, and weight loss, Eyes: Negative for injury, patty pain, redness, and discharge, Neck: Negative for injury, pain, and swelling, Cardiovascular: Negative for chest pain, palpitations, and edema, Respiratory: Negative for shortness of breath, cough, wheezing, and pleuritic chest pain, Abdomen/GI: Negative for abdominal pain, nausea, vomiting, diarrhea, and constipation, Back: Negative for injury and pain, : Negative for injury, bleeding, discharge, and swelling, MS/Extremity: Negative for injury and deformity, Skin: Negative for injury, rash, and discoloration, Neuro: Negative for headache, weakness, numbness, tingling, and seizure, Psych: Negative for depression, anxiety, suicide ideation, homicidal ideation, and hallucinations, Allergy/Immunology: Negative for hives, rash, and allergies, Endocrine: Negative for neck swelling, polydipsia, polyuria, polyphagia, and marked weight changes, Hematologic/Lymphatic: Negative for swollen nodes, abnormal bleeding, and unusual bruising. 17:42 ENT: Positive for Teeth pain Exam: 17:42 Constitutional: This is a well developed, well nourished patient who is awake, alert, patty and in no acute distress. Head/Face: Normocephalic, atraumatic. Eyes: Pupils equal round and reactive to light, extra-ocular motions intact. Lids and lashes normal. Conjunctiva and sclera are non-icteric and not injected. Cornea within normal limits. Periorbital areas with no swelling, redness, or edema. Neck: Trachea midline, no thyromegaly or masses palpated, and no cervical lymphadenopathy. Supple, full range of motion without nuchal rigidity, or vertebral point tenderness. No Meningismus. Chest/axilla: Normal chest wall appearance and motion. Nontender with no deformity. No lesions are appreciated. Cardiovascular: Regular rate and rhythm with a normal S1 and S2. No gallops, murmurs, or rubs. Normal PMI, no JVD. No pulse deficits. Respiratory: Lungs have equal breath sounds bilaterally, clear to auscultation and percussion. No rales, rhonchi or wheezes noted. No increased work of breathing, no retractions or nasal flaring. Abdomen/GI: Soft, non-tender, with normal bowel sounds. No distension or tympany. No guarding or rebound. No evidence of tenderness throughout. Back: No spinal tenderness. No costovertebral tenderness. Full range of motion. Skin: Warm, dry with normal turgor. Normal color with no rashes, no lesions, and no evidence of cellulitis. MS/ Extremity: Pulses equal, no cyanosis. Neurovascular intact. Full, normal range of motion. Neuro: Awake and alert, GCS 15, oriented to person, place, time, and situation. Cranial nerves II-XII grossly intact. Motor strength 5/5 in all extremities. Sensory grossly intact. Cerebellar exam normal. Normal gait. Psych: Awake, alert, with orientation to person, place and time. Behavior, mood, and affect are within normal limits. Vital Signs: 17:18 BP 113 / 74; Pulse 99; Resp 17 S; Temp 98.7(TE); Pulse Ox 100% on R/A; Weight 49.9 kg ca1 (R); Height 5 ft. 1 in. (154.94 cm) (R); Pain 6/10; 17:18 Body Mass Index 20.78 (49.90 kg, 154.94 cm) ca1 MDM: 17:35 Patient medically screened. [facility] 07/12 17:51 Order name: Urine Dipstick--Ancillary (enter results) 07/12 17:52 Order name: Urine --Ancillary (enter results) bd 07/12 17:42 Order name: Urine Dipstick-Ancillary (obtain specimen); Complete Time: 17:[address] [facility] 07/12 17:42 Order name: Urine Test (obtain specimen); Complete Time: 17:[address] [facility] Administered Medications: 17:47 Drug: Augmentin 875 mg Route: PO; vc 18:00 Follow up: Response: No adverse reaction; Nausea is decreased vc 17:47 Drug: Zofran (Ondansetron) 4 mg Route: PO; vc 17:59 Follow up: Response: No adverse reaction; Nausea is decreased vc Disposition: 07/13/19 17:48 Discharged to Home. Impression: Dental caries, Dental caries, unspecified. - Condition is Stable. - Discharge Instructions: Dental Caries, Adult, Dental Pain, Nausea and Vomiting, Adult, Nausea and Vomiting, Adult, [id number], Dental Pain, [id number], Diet and Dental Disease, Dental Caries, [id number]. - Prescriptions for Amoxicillin 500 mg Oral Capsule - take 1 capsule by ORAL route every 8 hours for 10 days; 30 tablet. Zofran 4 mg Oral Tablet - take 1 tablet by ORAL route every 12 hours As needed; 14 tablet. Motrin IB 200 mg Oral Tablet - take 2 tablet by ORAL route every 6 hours As needed as needed with food; 30 tablet. - Medication Reconciliation Form, Thank You Letter, Antibiotic Education, Prescription Opioid Use form. - Follow up: Private Physician; When: 2 - 3 days; Reason: Recheck today's complaints, Continuance of care, Re-evaluation by your physician. Follow up: Fugler, Jame, DDS; When: 2 - 3 days; Reason: Recheck today's complaints, Continuance of care, Re-evaluation by your physician. - Problem is new. - Symptoms have improved. Signatures: Dispatcher [employer] EDRashid Waggoner MD MD cha Acob, Cheryl, RN RN ca1 Mitzi Denton RN RN vc Corrections: (The following items were deleted from the chart) 17:59 17:48 07/13/2019 17:48 Discharged to Home. Impression: Dental caries; Dental caries, vc unspecified. Condition is Stable. Forms are Medication Reconciliation Form, Thank You Letter, Antibiotic Education, Prescription Opioid Use. Follow up: Private Physician; When: 2 - 3 days; Reason: Recheck today's complaints, Continuance of care, Re-evaluation by your physician. Follow up: Jame Leach; When: 2 - 3 days; Reason: Recheck today's complaints, Continuance of care, Re-evaluation by your physician. Problem is new. Symptoms have improved. patty
[2019-07-13 18:25] VITALS: BP 113/74; TEMP 98.7; O2SAT 100
[2019-07-13 19:59] LABS: Urine Blood NEGATIVE (NEG); Urine Glucose NEGATIVE (NEG); Urine Protein NEGATIVE (NEG); Urine Specific Gravity >1.030 (1.005-1.030); Urine pH 5.5 (5.0-7.0)
[2019-07-13 19:59] LABS: Urine Specific Gravity >1.030 (1.005-1.030)
== END 2019-07-13 17:59 | disposition home or self-care (01) ==
LOC: ER 17:07
DX: K02.9 Dental caries, unspecified (principal); F17.210 Nicotine dependence, cigarettes, uncomplicated
CPT/HCPCS: 81003; 81025; 99283

== ENCOUNTER 2019-08-06 12:15 | Emergency (ER) | payer SELFPAY ==
--- OUTSIDE RECORDS SUMMARY | 2019-08-06 12:17 | XMS REPORT ---
:1990 Author Organization [facility] t Address [address] [place] [place] [address] Care Team Providers Name Role Phone ISMAEL FARLEY Unavailable Unavailable Payers Payer Name Policy Type Policy Number Effective Date Expiration D ate Problems This patient has no known problems. Allergies, Adverse Reactions, Alerts Allergy Allergy Status Severity Reaction(s) Onset Inactive Treating C omments Name Type Date Date Clinician No Known DA Active U 2014-12 Allergies 00:00:0 0 Medications This patient has no known medications. Results Test Description Test Time Test Comments Text Results Atomic Results Result Comments - XR 2019-04-24 FAX: Kulwant Sorto NP [phone] [place]: E St: CHEST 17:17:00 PRE -- 2 V Patient Name: GALI THOMPSON Unit No: [id number] EXAMS: CPT CODE: [id number] XR CHEST 2 V 71 046 Exam: Chest 2 views Location: H 12 History: fever Comparison: 01/23/2015. Fin dings: The lungs are clear. No infiltrate or effusion is seen. The pulmon dmitri vasculature is normal. The heart size is normal. The mediastinal silhouette is unremarkable. The bony thorax is intact. Impression: No acute disease. 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 Dict ated Date/Time: 04/24/2019 (1716)Technologist: Antolin Best Transcribed Date/Time: 04/24/2019 (1716) By: J Luis Orig Josefina nt D/T: S: 04/24/2019 (763) [facility] NAME: [id number] PHYS: Valarie [place], [place] [address] : 0 1990 AGE: 28 SEX: [phone] LOC: B.ERS PHONE #: [phone] EXAM DATE: STATUS: PRE ER FAX #: [phone] RAD NO: DC Dt: PAGE 1 Signed Report AG STREP GROUP A (THROAT) 2019-04-24 16:29:00 Test Item Value Reference Range Comments AG STREP GROUP A (THROAT) NEG SCREEN NEG ST REP ANTIGEN SCREENING:Antigen (test code = STREPA) screening t est; suggest confirmation by culture.INTERPRE TATION OF STREP ANTIGEN RESULTS:WHEN STR EP GROUP A ANTIGEN IS NOT DETECTED, THE NE GATIVERESULT DOES NOT RULE OUT THE PRESENCE OF STREP GROUP A.WHEN STREP GROUP A AN TIGEN IS DETECTED, THE POSITIVE RESULTI S SIGNIFICANT. NEGATIVE RESULTS REFLEX A CULTURE. FORNEGATIVE RESULTS A CULTUR E IS IN PROGRESS, RESULT TO FOLLOW. WOUND CULTURE + GRAM [id number] 09:25:00 Test Item Value Reference Range Comments CULTURE (BEAKER) (test STAPHYLOCOCCUS AUREUS 3+ Staphylococcus code = 1095) aureusMethicilli n Resistant Staphy lococcus aureus isolated. Clindamycin (test code = 10) Erythromycin (test code = 4) Linezolid (test code = 40) Oxacillin (test code = 14) Rifampin (test code = 43) Tetracycline (test code = 2) Trimethoprim + Sulfamethoxazole (test code = 47) Vancomycin (test code = 13) GRAM STAIN RESULT <1+ WBCs (BEAKER) (test code = 1123) GRAM STAIN RESULT No organisms seen (BEAKER) (test code = 577959)
--- NOTE | 2019-08-06 14:04 | ER ---
Nurse's Notes [facility] Name: Rebecca West Age: 29 yrs Sex: Female : 1990 Arrival Date: 08/06/2019 Time: 12:35 Bed 17 Private MD: Diagnosis: Viral infection, unspecified Presentation: 08/05 12:40 Chief complaint: Patient states: chest tightness since last night, muscle aches, cough, ah headache, and chills. Coronavirus screen: Surgical mask placed on patient. Patient moved to private room, placed in contact and droplet isolation with eye protection until further assessment. Patient reports a cough. Patient denies shortness of breath or difficulty breathing. Patient denies measured and/or subjective temperature greater than 100.4F prior to today's visit. Patient denies travel on a cruise ship or to a country the [facility] currently lists as an affected area. Patient denies contact with known and/or suspected case of COVID-19. Ebola Screen: No symptoms or risks identified at this time. Initial Sepsis Screen: Does the patient meet any 2 criteria? No. Patient's initial sepsis screen is negative. Does the patient have a suspected source of infection? No. Patient's initial sepsis screen is negative. Risk Assessment: Do you want to hurt yourself or someone else? Patient reports no desire to harm self or others. Onset of symptoms was August 05, 2019. 12:40 Method Of Arrival: EMS: [facility] 12:40 Acuity: MARCOS 3 Triage Assessment: 13:20 General: Appears in no apparent distress. Behavior is calm, cooperative. Historical: - Allergies: 12:45 No Known Allergies; - Home Meds: 12:45 None [Active]; - PMHx: 12:45 had mirena removed 2 weeks ago; - PSHx: 12:45 None; - Immunization history:: Flu vaccine is not up to date. - Social history:: Smoking status: Patient reports the use of cigarette tobacco products, smokes one-half pack cigarettes per day, Patient uses street drugs, Methamphetamine (Meth) she states that she last used meth yesterday. Screenin:19 Abuse screen: Denies threats or abuse. Nutritional screening: No deficits noted. Tuberculosis screening: No symptoms or risk factors identified. Fall Risk None identified. Assessment: 12:45 General: Appears in no apparent distress. Behavior is cooperative. Pain: Denies pain. Neuro: Level of Consciousness is awake, alert, Oriented to person, place, time. Cardiovascular: Heart tones S1 S2 Capillary refill < 3 seconds Patient's skin is warm and dry. Pulses are palpable in right radial artery, right dorsalis pedis artery, left radial artery and left dorsalis pedis artery. Cardiovascular: Parent/caregiver reports patient has had prior chest pain but has since resolved on its own. Respiratory: Reports chest tightness Airway is patent Respiratory effort is even, unlabored, Respiratory pattern is regular, Breath sounds are clear bilaterally. the patient has mild shortness of breath Parent/caregiver reports the patient having cough that is non-productive, dry. GI: No signs and/or symptoms were reported involving the gastrointestinal system. Abdomen is non-distended, Bowel sounds present X 4 quads. : No signs and/or symptoms were reported regarding the genitourinary system. Derm: No signs and/or symptoms reported regarding the dermatologic system. Musculoskeletal: No signs and/or symptoms reported regarding the musculoskeletal system. 13:23 Reassessment: Pt states that she has had family from [place] visiting and they left yesterday. Vital Signs: 12:40 BP 108 / 73; Pulse 90; Resp 15; Temp 98.6; Pulse Ox 99% on R/A; Weight 49.9 kg; Height 5 ft. 1 in. (154.94 cm); 12:46 BP 108 / 73; Pulse 90; Resp 15; Temp 98.6; Pulse Ox 99% ; ah 13:21 BP 110 / 74; Pulse 76; Resp 18; Pulse Ox 100% ; ah 14:00 BP 107 / 64; Pulse 98; Resp 20; Pulse Ox 99% ; ah 12:40 Body Mass Index 20.78 (49.90 kg, 154.94 cm) ED Course: 12:35 Patient arrived in ED. aa5 12:40 Marjan Schmitz, RN is Primary Nurse. 12:44 Triage completed. ah 12:44 Talita Ku [facility]-C [facility]. snw 12:44 Scott Brower MD is Attending Physician. snw 12:49 EKG done, by chief radiologic technologist. reviewed by Scott Brower MD. at1 13:19 Arm band placed on right wrist. ah 13:20 Patient has correct armband on for positive identification. Placed in gown. Bed in low ah position. Call light in reach. monitoring specialist on. Pulse ox on. NIBP on. 13:49 Health Dept notified/ COVID test sent to lab/ PUI # [id number]/ lab notified. 13:55 Nurse Practitioner and/or Physician Quarry Plant Crusher Operator to see patient. 14:15 No provider procedures requiring assistance completed. Missed attempt(s): 20 gauge in right antecubital area. Bleeding controlled, band aid applied, catheter tip intact. 14:25 Patient did not have IV access during this emergency room visit. intact. Administered Medications: No medications were administered Outcome: 14:03 Discharge ordered by . snw 14:15 Discharged to home ambulatory. 14:15 Condition: good 14:15 Discharge instructions given to patient, Instructed on discharge instructions, follow up and referral plans. medication usage, Demonstrated understanding of instructions, follow-up care, medications, Prescriptions given X 1. 14:28 Patient left the ED. Addendum: 08/07/2019 16:04 Addendum: Other Attempted to contact patient VIA phone number on file in regards to s s "Not detected" Covid-19 result. Individual who answered stated that the number was the wrong number. Attempted to call Next of kin, brother Lamont West, no answer. Unable to leave as recording stated that there were call restrictions. Spoke with Mother In Law Brandon who gave two additional numbers [phone] which was not accepting calls at this time, and [phone] which went to , but would not allow me to leave a message. Mother in law brandon stated that she would notify patient to be expecting a phone call from [facility]. 08/09/2019 13:37 Addendum: Other pt called back to receive her Covid results, was told results were i w negative. Signatures: Talita Ku, SCREEN PRINTING SUPERVISOR-C SCREEN PRINTING SUPERVISOR-Csnw Bernadette English, SANTO BLANCHARD Chio Lawson RN RN aa5 Annalisa Liriano RN RN ss Shannon Stubbs, director of corporate communications EKG Tat1 Jarquin, Sarahi eb Schmitz, Marjan, RN RN ah
--- NOTE | 2019-08-06 14:04 | EDPHYS ---
Physician Documentation [facility] Name: Rebecca West Age: 29 yrs Sex: Female : 1990 Arrival Date: 08/06/2019 Time: 12:35 Bed 17 Private MD: ED Physician Scott Brower HPI: 08/05 13:35 This 29 yrs old Female presents to ER via EMS with complaints of malaise, snw cough, chills. 13:35 Pt c/o malaise, bodyaches, chills, headache since using Meth yesterday. Onset: The snw symptoms/episode began/occurred suddenly. Severity of symptoms: At their worst the symptoms were mild moderate. It is unknown whether or not the patient has had similar symptoms in the past. The patient has not recently seen a physician. Historical: - Allergies: 12:45 No Known Allergies; ah - Home Meds: 12:45 None [Active]; - PMHx: 12:45 had mirena removed 2 weeks ago; - PSHx: 12:45 None; - Immunization history:: Flu vaccine is not up to date. - Social history:: Smoking status: Patient reports the use of cigarette tobacco products, smokes one-half pack cigarettes per day, Patient uses street drugs, Methamphetamine (Meth) she states that she last used meth yesterday. ROS: 13:34 Eyes: Negative for injury, pain, redness, and discharge, ENT: Negative for injury, snw pain, and discharge, Neck: Negative for injury, pain, and swelling, Cardiovascular: Negative for chest pain, palpitations, and edema, Abdomen/GI: Negative for abdominal pain, nausea, vomiting, diarrhea, and constipation, Back: Negative for injury and pain, : Negative for injury, bleeding, discharge, and swelling, MS/Extremity: Negative for injury and deformity, Skin: Negative for injury, rash, and discoloration. 13:34 Constitutional: Positive for body aches, chills, malaise, poor PO intake. 13:34 Respiratory: Positive for cough. 13:34 Neuro: Positive for headache. Exam: 14:04 Constitutional: This is a well developed, well nourished patient who is awake, alert, snw and in no acute distress. Head/Face: Normocephalic, atraumatic. Eyes: Pupils equal round and reactive to light, extra-ocular motions intact. Lids and lashes normal. Conjunctiva and sclera are non-icteric and not injected. Cornea within normal limits. Periorbital areas with no swelling, redness, or edema. ENT: Nares patent. No nasal discharge, no septal abnormalities noted. Tympanic membranes are normal and external auditory canals are clear. Oropharynx with no redness, swelling, or masses, exudates, or evidence of obstruction, uvula midline. Mucous membranes moist. Neck: Trachea midline, no thyromegaly or masses palpated, and no cervical lymphadenopathy. Supple, full range of motion without nuchal rigidity, or vertebral point tenderness. No Meningismus. Chest/axilla: Normal chest wall appearance and motion. Nontender with no deformity. No lesions are appreciated. Cardiovascular: Regular rate and rhythm with a normal S1 and S2. No gallops, murmurs, or rubs. Normal PMI, no JVD. No pulse deficits. Respiratory: Lungs have equal breath sounds bilaterally, clear to auscultation and percussion. No rales, rhonchi or wheezes noted. No increased work of breathing, no retractions or nasal flaring. Abdomen/GI: Soft, non-tender, with normal bowel sounds. No distension or tympany. No guarding or rebound. No evidence of tenderness throughout. Back: No spinal tenderness. No costovertebral tenderness. Full range of motion. Skin: Warm, dry with normal turgor. Normal color with no rashes, no lesions, and no evidence of cellulitis. MS/ Extremity: Pulses equal, no cyanosis. Neurovascular intact. Full, normal range of motion. Neuro: Awake and alert, GCS 15, oriented to person, place, time, and situation. Cranial nerves II-XII grossly intact. Motor strength 5/5 in all extremities. Sensory grossly intact. Cerebellar exam normal. Normal gait. Psych: Awake, alert, with orientation to person, place and time. Behavior, mood, and affect are within normal limits. Vital Signs: 12:40 BP 108 / 73; Pulse 90; Resp 15; Temp 98.6; Pulse Ox 99% on R/A; Weight 49.9 kg; Height ah 5 ft. 1 in. (154.94 cm); 12:46 BP 108 / 73; Pulse 90; Resp 15; Temp 98.6; Pulse Ox 99% ; 13:21 BP 110 / 74; Pulse 76; Resp 18; Pulse Ox 100% ; 14:00 BP 107 / 64; Pulse 98; Resp 20; Pulse Ox 99% ; 12:40 Body Mass Index 20.78 (49.90 kg, 154.94 cm) MDM: 13:00 Patient medically screened. snw 14:04 Data reviewed: vital signs, nurses notes. Data interpreted: Pulse oximetry: on room air snw is 100 %. Interpretation: normal. Counseling: I had a detailed discussion with the patient and/or guardian regarding: the historical points, exam findings, and any diagnostic results supporting the discharge/admit diagnosis, lab results, the need for outpatient follow up, to return to the emergency department if symptoms worsen or persist or if there are any questions or concerns that arise at home. Special discussion: Based on the history and exam findings, there is no indication for further emergent testing or inpatient evaluation. I discussed with the patient/guardian the need to see the primary care provider for further evaluation of the symptoms. 08/05 12:45 Order name: Flu; Complete Time: 13:41 snw 08/05 12:45 Order name: Strep; Complete Time: 13:41 snw 08/05 12:45 Order name: COVID-19; Complete Time: 14:11 snw 08/05 13:11 Order name: Quantitative Hcg; Complete Time: 13:32 snw 08/05 13:45 Order name: Throat Culture EDMS Administered Medications: No medications were administered Disposition: 16:53 Co-signature as Attending Physician, Scott Brower MD I agree with the assessment and kdr plan of care. Disposition: 08/06/19 14:03 Discharged to Home. Impression: Viral infection, unspecified. - Condition is Stable. - Discharge Instructions: Muscle Pain, Adult, Viral Respiratory Infection, Rehydration, Adult. - Prescriptions for orphenadrine citrate 100 mg Oral Tablet Sustained Release - take 1 tablet by ORAL route 2 times per day As needed; 20 tablet. - Medication Reconciliation Form, Thank You Letter, Antibiotic Education, Prescription Opioid Use form. - Follow up: Emergency Department; When: As needed; Reason: Worsening of condition. Follow up: Private Physician; When: 2 - 3 days; Reason: Recheck today's complaints, Continuance of care, Re-evaluation by your physician. - Notes: Please quarantine x 14 days. Signatures: Dispatcher [employer] [facility] Scott Brower MD MD [facility] Talita Ku, CRYSTALLOGRAPHY TEACHER-C CRYSTALLOGRAPHY TEACHER-Marjan Klein RN RN Corrections: (The following items were deleted from the chart) 13:16 12:51 TEST, SERUM+SC.LAB.BRZ ordered. [facility] 14:28 14:03 08/06/2019 14:03 Discharged to Home. Impression: Viral infection, unspecified. Condition is Stable. Forms are Medication Reconciliation Form, Thank You Letter, Antibiotic Education, Prescription Opioid Use. Follow up: Emergency Department; When: As needed; Reason: Worsening of condition. Follow up: Private Physician; When: 2 - 3 days; Reason: Recheck today's complaints, Continuance of care, Re-evaluation by your physician. snw
[2019-08-06 14:36] VITALS: TEMP 98.6
[2019-08-06 14:40] VITALS: BP 107/64; O2SAT 99
--- NOTE | 2019-08-08 08:08 | EKG ---
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
== END 2019-08-06 14:28 | disposition home or self-care (01) ==
LOC: ER 12:15
DX: B34.9 Viral infection, unspecified (principal); F17.210 Nicotine dependence, cigarettes, uncomplicated; Z03.818 Encounter for observation for suspected exposure to other biological agents ruled out
CPT/HCPCS: 36415; 84702; 87070; 87081; 87804; 93005; 99284; U0001

== ENCOUNTER 2019-11-19 18:37 | Emergency (ER) | payer SELFPAY, OTHER ==
--- OUTSIDE RECORDS SUMMARY | 2019-11-19 18:39 | XMS REPORT | Clinical Summary ---
:1990 Author Organization [facility] Address [address] [place] [address] Care Team Providers Name Role Phone Pcp, No Primary Care Provider Unavailable Allergies No Known Allergies Medications Medication Sig Dispensed Refills Start Date End Date Status sulfamethoxazole-t Take 1 tablet (160 14 tablet 0 02/23/2019 1 05/02/2018 rimethoprim mg of trimethoprim (BACTRIM DS) total) by mouth 2 800-160 mg per (two) times daily tablet for 7 days. ketorolac Take 1 tablet (10 15 tablet 0 02/23/2019 02/28/2019 (TORADOL) 10 mg mg total) by mouth tablet every 8 (eight) hours as needed for Pain for up to 5 days. Active Problems Not on file Encounters Date Type Specialty Care Team Description 02/23/2019 Emergency Emergency Medicine Nita Darnellunc ulosis of skin MD [place] (Primary Dx) after 11/18/2018 Social History Tobacco Use Types Packs/Day Years Used Date Never Smoker Smokeless Tobacco: Never Used Sex Assigned at Date Recorded Not on file Job Start Date Occupation Industry Not on file Not on file Not on file Travel History Travel Start Travel End No recent travel history available. Last Filed Vital Signs Vital Sign Reading Time Taken Blood Pressure 139/74 02/23/2019 10:48 AM CDT Pulse 88 02/23/2019 10:48 AM CDT Temperature 36.9 C (98.5 F) 02/23/2019 10:48 AM CDT Respiratory Rate 16 02/23/2019 10:48 AM CDT Oxygen Saturation 99% 02/23/2019 10:48 AM CDT Inhaled Oxygen Concentration - - Weight 47.6 kg (105 lb) 02/23/2019 9:53 AM CDT Height 154.9 cm (5' 1") 02/23/2019 9:53 AM CDT Body Mass Index 19.84 02/23/2019 9:53 AM CDT Plan of Treatment Not on file Procedures Procedure Name Priority Date/Time Associated Diagnosis Comme nts WOUND CULTURE + STAT 02/23/2019 10:01 AM Resul ts for this GRAM STAIN CDT procedure are i n the results section. IN DRAIN SKIN Routine 02/23/2019 9:48 AM Results for this ABSCESS SIMPLE CDT procedure are in the results section. after 11/18/2018 Results Wound culture (02/23/2019 10:01 AM CDT) Result 3+ Staphylococcus aureus (A)Comment: [facility] Methicillin Resistant Staphylococcus aureus isolated. Gram Stain Result <1+ WBCs [facility] Gram Stain Result No organisms seen [facility] Specimen Abscess Organism Antibiotic Method Susceptibility Staphylococcus aureus Clindamycin 0.25: Susc eptible Staphylococcus aureus Erythromycin >=8: Resis tant Staphylococcus aureus Linezolid 2: Suscept ible Staphylococcus aureus Oxacillin >=4: Resis tant Staphylococcus aureus Rifampin <=0.5: Arin ceptible Staphylococcus aureus Tetracycline <=1: Susce ptible Staphylococcus aureus Trimethoprim + Sulfamethoxazole <=10: Susceptible Staphylococcus aureus Vancomycin <=0.5: Arin ceptible Performing Organization Address City/State/Zipcode Phone Number [facility] [id number] [id number] Puncture/Drainage (02/23/2019 9:48 AM CDT) Narrative Performed At Nita Darnell MD 1 10:42 AM Puncture/Drainage Date/Time: 02/23/2019 9:55 AM Performed by: Nita Darnell MD Authorized by: Nita Darnell MD Consent: Verbal consent obtained. Risks and benefits: risks, benefits and alternatives were discussed Consent given by: patient Patient understanding: patient states understanding of the procedure being performed Patient consent: the patient's understan ding of the procedure matches consent given Procedure consent: procedure consent mat ches procedure scheduled Relevant documents: relevant documents p resent and verified Test results: test results not available Site marked: the operative site was selam ed Patient identity confirmed: verbally wit h patient Type: abscess Body area: lower extremity Location details: right leg Anesthesia: Local Anesthetic: LET (lido,epi,tetracai ne) Anesthetic total: 2 mL Sedation: Patient sedated: no Needle gauge: 18 Complexity: simple Drainage: purulent Drainage amount: scant Wound treatment: wound left open Packing material: none Patient tolerance: Patient tolerated the procedure wel l with no immediate complications Immediate Post-Procedure Note Date/Time: 02/23/2019 9:57 AM Assistants to the procedure: None Pre-procedure diagnosis: Abcess with Red ness and swelling to right leg Post-procedure diagnosis: Abcess with Re dness and swelling to right leg Procedures Performed: Puncture/Drainage Specimens removed: None Estimated blood loss (mL): None Complications: None Type of anesthesia: None Grafts or Implants: None Comments: Pus sent for C/S after 11/18/2018
--- OUTSIDE RECORDS SUMMARY | 2019-11-19 18:39 | XMS REPORT | Continuity of Care Document ---
:1990 Author Organization [facility] t Address [address] [place] [address] Care Team Providers Name Role Phone Pcp Primary Care Physician Unavailable ISMAEL DARNELL Attending Clinician Unavailable Ismael Darnell MD Attending Clinician Payers Payer Name Policy Type Policy Effective Date Expiration Date Sour ce Number MEDICAID [facility] PENDING [facility] [employer] [facility] PENDING [facility] Problems This patient has no known problems. Allergies, Adverse Reactions, Alerts Allergy Allergy Status Severity Reaction(s) Onset Inactive Treating Comm ents Source Name Type Date Date Clinician No Known DA Active U [facility]ie 01-23 [place] [facility] 00:00: [facility] [facility] Social History Social Habit Start Date Stop Date Quantity Comments Source Sex Assigned At [facility] Smoking Status Start Date Stop Date Source Never smoker [facility] Medications Ordered Filled Start Stop Current Ordering Indication Dosage Frequency Signature Comments Components Source Medication Medication Date Date Medication? Clinician (SIG) Name Name sulfamethox 2018-04 2019- No 160mg{t Q.5D Take 1 [facility] azole-trime 0-29 11-05 rimetho tablet Hollie kes - thoprim 00:00: 23:59 prim} (160 mg of Me dical (BACTRIM 00 :00 trimethopr Cente r DS) 800-160 im total) mg per by mouth 2 tablet (two) times daily for 7 days. ketorolac 2018-04- No 10mg Take 1 [facility] S t (TORADOL) 02-28 tablet (10 [place] es - 10 mg 00:00: 23:59 mg total) Medica l tablet 00 :00 by mouth Center every 8 (eight) hours as needed for Pain for up to 5 days. Vital Signs Vital Name Observation Time Observation Value Comments Source Systolic blood 2019-02-23 10:48:00 139 mm[Hg] [facility] Diastolic blood 2019-02-23 10:48:00 74 mm[Hg] [facility] S t [facility] Heart rate 2019-02-23 10:48:00 88 /min [facility] Body temperature 2019-02-23 10:48:00 36.94 [place] [facility] Respiratory rate 2019-02-23 10:48:00 16 /min [facility] Oxygen saturation in 2019-02-23 10:48:00 99 /min [facility] Arterial blood by Medical Ce nter Pulse oximetry Body height 2019-02-23 09:53:00 154.9 cm [facility] Body weight Measured 2019-02-23 09:53:00 47.628 kg [facility] BMI 2019-02-23 09:53:00 19.84 kg/m2 [facility] Procedures Procedure Date / Time Performed Performing Clinician Sour e WOUND CULTURE + GRAM 2019-02-23 10:01:00 Nita Darnell [facility] - STAIN [facility] [place] DRAIN SKIN ABSCESS 2019-02-23 09:48:50 DarnellNita alas [facility] - SIMPLE [facility] Encounters Start End Encounter Admission Attending Care Care Encounter Source Date/Time Date/Time Type Type Clinicians Facility Department ID 2019-02-28 2019-02-28 Departed [facility] [id number] 11:28:00 12:47:[address] Results Test Description Test Time Test Comments Results Result Comments Source - XR CHEST 2 V 2019-04-24 FAX: Valarie Sorto 17:17:00 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 Findings: The lungs are clear. No infiltrate or effusion is seen. The pulmonary vasculature is normal. The heart size is normal. The mediastinal silhouette is unremarkable. The bony thorax is intact. Impression: No acute disease. at 9731 Reported and signed by: Leonard Mckeon MD CC: Valarie Gonzáles NP Dictated Date/Time: 04/24/2019 (1780)Technologist: Antolin Best Transcribed Date/Time: 04/24/2019 (920) By: J Luis Orig Print D/T: S: 04/24/2019 (0323) [facility] NAME: GALI BRAR [address] [place] [address] PHYS: Valarie Cartagena [place], [place] [address] : 1990 AGE: 28 SEX: F LOC: ZOE PHONE #: [phone] EXAM DATE: 04/24/2019 STATUS: PRE ER FAX #: [phone] RAD NO: DC Dt: PAGE 1 Signed Report AG STREP GROUP A (THROAT) 2019-04-24 16:29:00 Test Item Value Reference Range Interpretation Comme nts AG STREP GROUP A (THROAT) NEG SCREEN NEG STREP ANTIGEN SCREENING:Antigen (test code = STREPA) screeni ng test; suggest confirmation by culture.INTERPR ETATION OF STREP ANTIGEN RESULTS:WHEN ST REP GROUP A ANTIGEN IS NOT DETECTED, THE N EGATIVERESULT DOES NOT RULE OUT THE FL ESENCE OF STREP GROUP A.WHEN STREP GR OUP A ANTIGEN IS DETECTED, THE POSITIVE RE SULTIS SIGNIFICANT. NEGATIVE RESULT S REFLEX A CULTURE. FORNEGATIVE RES ULTS A CULTURE IS IN PROGRESS, RESUL T TO FOLLOW. WOUND CULTURE + GRAM [id number] 09:25:00 Test Item Value Reference Interpretation Comments Range CULTURE (BEAKER) STAPHYLOCOCCUS A 3+ Staphy lococcus (test code = 1095) AUREUS aureusMet hicillin Resistant Staphylococcus aureus isolated . Clindamycin (test S code = 10) Erythromycin (test R code = 4) Linezolid (test code S = 40) Oxacillin (test code R = 14) Rifampin (test code S = 43) Tetracycline (test S code = 2) Trimethoprim + S Sulfamethoxazole (test code = 47) Vancomycin (test S code = 13) GRAM STAIN RESULT <1+ WBCs (BEAKER) (test code = 1123) GRAM STAIN RESULT No organisms seen (BEAKER) (test code = 393334) Puncture/[id number] 09:48:50Nita Darnell MD 02/23/2019 10:42 AMPuncture/DrainageDate/Time: 02/23/2019 9:55 AMPerformed by: Nita Darnell [facility]ITAL[facility]horized by: Nita Darnell MD Consent: Verbal consent obtained.Risks and benefits: risks, benefits and alternatives were discussedConsent given by: patientPatient understanding: patient states understanding of the procedure being performedPatient consent: the patient's understanding of the procedure matches consent givenProcedure consent: procedure consent matches procedure scheduledRelevant documents: relevant documents present and verifiedTest results: test results not availableSite marked: the operative site was markedPatient identity confirmed: verbally with patientType: abscessBody area: lower extremityLocation details: right leg Anesthesia:Local Anesthetic: LET (lido,epi,tetracaine)Anesthetic total: 2 mL Sedation:Patient sedated: noNeedle gauge: 18Complexity: simpleDrainage: purulentDrainage amount: scantWound treatment: wound left openPacking material: nonePatient tolerance: Patient tolerated the procedure well with no immediatecomplicationsImmediate Post-Procedure Note Date/Time: 02/23/2019 9:57 AMAssistants to the procedure:NonePre-procedure diagnosis: Abcess with Redness and swelling to right legPost-procedure diagnosis: Abcess with Redness and swelling to right legProcedures Performed: Puncture/DrainageSpecimens removed: NoneEstimated blood loss (mL): NoneComplications: NoneType of anesthesia: NoneGrafts or Implants: None Comments: Pus sent for C/SCHI [facility]
--- NOTE | 2019-11-19 20:37 | ER ---
Nurse's Notes [facility] Name: Rebecca West Age: 29 yrs Sex: Female : 1990 Arrival Date: 11/19/2019 Time: 18:37 Bed Waiting Private MD: Diagnosis: Presentation: 11/18 19:03 Chief complaint: Patient states: Reports headache, cough and shortness of breath for ea the past 5 days. Coronavirus screen: Patient reports a cough. Patient reports shortness of breath or difficulty breathing. Ebola Screen: No symptoms or risks identified at this time. Initial Sepsis Screen: Does the patient meet any 2 criteria? No. Patient's initial sepsis screen is negative. Does the patient have a suspected source of infection? No. Patient's initial sepsis screen is negative. Risk Assessment: Do you want to hurt yourself or someone else? Patient reports no desire to harm self or others. Onset of symptoms was November 19, 2019. 19:03 Method Of Arrival: Ambulatory ea 19:03 Acuity: MARCOS 3 ea Triage Assessment: 19:06 General: Appears uncomfortable, Behavior is appropriate for age. Pain: Denies pain. ea LPN RN: 19:07 LMP 11/19/2019 ea Historical: - Allergies: 19:06 No Known Allergies; ea - PMHx: 19:06 had mirena removed 2 weeks ago; chronic uti; ea - PSHx: 19:06 None; ea - Immunization history:: Adult Immunizations up to date. - Social history:: Smoking status: Patient reports the use of cigarette tobacco products, smokes one-half pack cigarettes per day. Screenin:05 Abuse screen: Denies threats or abuse. Nutritional screening: No deficits noted. ea Tuberculosis screening: No symptoms or risk factors identified. Fall Risk None identified. Vital Signs: 19:03 BP 118 / 91; Pulse 89; Resp 19; Temp 98.7; Pulse Ox 100% ; Weight 45.36 kg; Height 5 ea ft. 1 in. (154.94 cm); 19:03 Body Mass Index 18.89 (45.36 kg, 154.94 cm) ea ED Course: 18:37 Patient arrived in ED. as 19:05 Triage completed. ea 19:06 Arm band placed on right wrist. ea 20:02 Talita Karimi FNP-C is PHCP. snw 20:02 Leeroy Westbrook MD is Attending Physician. snw Administered Medications: No medications were administered Outcome: 20:36 Eloped from waiting room, Time discovered patient gone: November 19, 2019 at 20:36 ea 20:37 Patient left the ED. ea Signatures: Talita Karimi FNP-C FNP-Mary Lou Hunter Elena, RN RN ea
[2019-11-19 20:46] VITALS: BP 118/91; TEMP 98.7; O2SAT 100
== END 2019-11-19 20:37 | disposition left against medical advice (07) ==
LOC: ER 18:37
DX: Z53.21 Procedure and treatment not carried out due to patient leaving prior to being seen by health care provider (principal)
CPT/HCPCS: 99281

== ENCOUNTER 2019-12-06 12:28 | Emergency (ER) | payer OTHER, SELFPAY ==
[2019-12-06] MEDS ORDERED: PEN G BENZ LA 1.2MU/2ML SYRINGE IM ONE (14:12)
--- OUTSIDE RECORDS SUMMARY | 2019-12-06 17:41 | XMS REPORT | Continuity of Care Document ---
:[address] [facility] t Address [address] [place] [address] Care Team Providers Name Role Phone Pcp Primary Care Physician Unavailable ISMAEL DARNELL Attending Clinician Unavailable Ismael Darnell MD Attending Clinician Payers Payer Name Policy Type Policy Effective Date Expiration Date Sour ce Number MEDICAID [facility] PENDING [facility] WOLF CARE [facility] PENDING [facility] Problems This patient has no known problems. Allergies, Adverse Reactions, Alerts Allergy Allergy Status Severity Reaction(s) Onset Inactive Treating Comm ents Source Name Type Date Date Clinician No Known DA Active [facility] All[facility]ie 01-23 [place] [facility] 00:00: [facility] 00 [facility] Social History Social Habit Start Date Stop Date Quantity Comments Source Sex Assigned At [facility] Smoking Status Start Date Stop Date Source Never smoker [facility] Medications Ordered Filled Start Stop Current Ordering Indication Dosage Frequency Signature Comments Components Source Medication Medication Date Date Medication? Clinician (SIG) Name Name sulfamethox 2018-04 2019- No 160mg{t Q.5D Take 1 [facility] azole-trime 0-29 11-05 rimetho tablet Hollie kes - thoprim 00:00: 23:59 prim} (160 mg of Me dical (BACTRIM 00 :00 trimethopr Cente r DS) 800-160 im total) mg per by mouth 2 tablet (two) times daily for 7 days. ketorolac 2018-04- No 10mg Take [address] [facility] S t (TORADOL) 02-28 tablet (10 Fortino es - 10 mg 00:00: 23:59 mg total) Medica l tablet 00 :00 by mouth Center every 8 (eight) hours as needed for Pain for up to 5 days. Vital Signs Vital Name Observation Time Observation Value Comments Source Systolic blood 2019-02-23 10:48:00 139 mm[Hg] [facility] Diastolic blood 2019-02-23 10:48:00 74 mm[Hg] [facility] S t [facility] Heart rate 2019-02-23 10:48:00 88 /min [facility] Body temperature 2019-02-23 10:48:00 36.94 [place] [facility] Respiratory rate 2019-02-23 10:48:00 16 /min [facility] Oxygen saturation in 2019-02-23 10:48:00 99 /min [facility] Arterial blood by Medical Ce nter Pulse oximetry Body height 2019-02-23 09:53:00 154.9 cm [facility] Body weight Measured 2019-02-23 09:53:00 47.628 kg [facility] BMI 2019-02-23 09:53:00 19.84 kg/m2 [facility] Procedures Procedure Date / Time Performed Performing Clinician Sour e WOUND CULTURE + GRAM 2019-02-23 10:01:00 Nita Darnell [facility] - STAIN [facility] MA DRAIN SKIN ABSCESS 2019-02-23 09:48:50 DarnellNita alas [facility] - SIMPLE [facility] Encounters Start End Encounter Admission Attending Care Care Encounter Source Date/Time Date/Time Type Type Clinicians Facility Department ID 2019-02-28 2019-02-28 Departed [facility] [id number] 11:28:00 12:47:[address] Results Test Description Test Time Test Comments Results Result Comments Source - XR CHEST 2 V 2019-04-24 FAX: Valarie Sorto 17:17:00 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 Findings: The lungs are clear. No infiltrate or effusion is seen. The pulmonary vasculature is normal. The heart size is normal. The mediastinal silhouette is unremarkable. The bony thorax is intact. Impression: No acute disease. at [id number] Reported and signed by: Leonard Mckeon MD CC: Valarie Gonzáles NP Dictated Date/Time: 04/24/2019 ([id number])Technologist: Antolin Best Transcribed Date/Time: 04/24/2019 (246) By: J Luis Orig Print D/T: S: 04/24/2019 (0026) [facility] [place] NAME: GALI BRAR [address] [place] [address] PHYS: Valarie Cartagena [place], [place] [address] : 1990 AGE: 28 SEX: F LOC: ZOE PHONE #: [phone] EXAM DATE: 04/24/2019 STATUS: PRE ER FAX #: [phone] RAD NO: DC Dt: PAGE 1 Signed [...] N EGATIVERESULT DOES NOT RULE OUT THE MA ESENCE OF STREP GROUP A.WHEN STREP GR OUP A ANTIGEN IS DETECTED, THE POSITIVE RE SULTIS SIGNIFICANT. NEGATIVE RESULT S REFLEX A CULTURE. FORNEGATIVE RES ULTS A CULTURE IS IN PROGRESS, RESUL T TO FOLLOW. WOUND CULTURE + GRAM [id number] 09:25:00 Test Item Value Reference Interpretation Comments [...] No organisms seen (BEAKER) (test code = [id number]) Puncture/[id number] 09:48:50Nita Darnell MD 02/23/2019 10:42 AMPuncture/DrainageDate/Time: 02/23/2019 9:55 AMPerformed by: Nita Darnell [facility] by: Nita Darnell MD Consent: Verbal [...] Implants: None Comments: Pus sent for C/SCHI [facility]
--- OUTSIDE RECORDS SUMMARY | 2019-12-06 17:41 | XMS REPORT | Clinical Summary ---
:1990 Author Organization [facility] Address [address] [place] [address] Care Team Providers Name Role Phone Pcp, [...] of skin MD Delmer (Primary Dx) after 12/05/2018 Social History Tobacco Use Types Packs/Day Years [...] procedure are i n the results section. PA DRAIN SKIN Routine 02/23/2019 9:48 AM Results for this ABSCESS SIMPLE CDT procedure are in the results section. after 12/05/2018 Results Wound culture (02/23/2019 10:01 AM CDT) Result 3+ Staphylococcus aureus (A)Comment: [facility] Methicillin Resistant Staphylococcus aureus isolated. Gram Stain Result <1+ WBCs [facility] Gram Stain Result No organisms seen [facility] Specimen Abscess Organism Antibiotic Method Susceptibility Staphylococcus aureus Clindamycin 0.25: Susc eptible Staphylococcus aureus Erythromycin >=8: Resis tant Staphylococcus aureus Linezolid 2: Suscept ible Staphylococcus aureus Oxacillin >=4: Resis tant Staphylococcus aureus Rifampin <=0.5: Arin ceptible Staphylococcus aureus Tetracycline <=1: Susce ptible Staphylococcus aureus Trimethoprim + Sulfamethoxazole <=10: Susceptible Staphylococcus aureus Vancomycin <=0.5: Arin ceptible Performing Organization Address City/State/Zipcode Phone Number [facility] [address] [address] Puncture/Drainage (02/23/2019 9:48 AM CDT) Narrative Performed [...] None Comments: Pus sent for C/S after 12/05/2018
[2019-12-06 19:38] LABS: Urine Bacteria >50 /HPF (<20); Urine Culture Reflex Order NOT NEEDED; Urine RBC <5 /HPF (NONE SEEN)
--- NOTE | 2019-12-07 07:26 | EDPHYS ---
Physician Documentation [facility] Name: Rebecca West Age: 29 yrs Sex: Female : 1990 Arrival Date: 12/06/2019 Time: 12:29 Bed 8 Private MD: ED Physician Thomas Desai HPI: 12/05 13:24 This 29 yrs old Female presents to ER via EMS with complaints of Mold pm1 Exposure. 13:24 The patient presents with sore throat. The patient describes throat pain as raw, pm1 scratchy. Onset: The symptoms/episode began/occurred 1 week(s) ago. Severity of symptoms: in the emergency department the symptoms are unchanged. Modifying factors: the symptoms are aggravated by swallowing, possible mold exposure, Patient's oral intake status: good. Associated signs and symptoms: Pertinent positives: Sore throat Dry cough, Pertinent negatives chest pain, fever, flu-like symptoms, shortness of breath. The patient has not experienced similar symptoms in the past. The patient has not recently seen a physician. 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 - Social history:: Smoking status: Patient reports the use of cigarette tobacco products, smokes one pack cigarettes per day. Patient uses street drugs, Methamphetamine (Meth) Patient/guardian denies using alcohol. ROS: 13:24 Constitutional: Negative for fever, chills, and weight loss, Eyes: Negative for injury, pm1 pain, redness, and discharge. 13:24 Neck: Negative for injury, pain, and swelling, Cardiovascular: Negative for chest pain, palpitations, and edema. 13:24 Abdomen/GI: Negative for abdominal pain, nausea, vomiting, diarrhea, and constipation, Back: Negative for injury and pain, MS/Extremity: Negative for injury and deformity, Skin: Negative for injury, rash, and discoloration, Neuro: Negative for headache, weakness, numbness, tingling, and seizure. 13:24 ENT: Positive for sore throat, Negative for drainage from ear(s), ear pain, difficulty swallowing, difficulty handling secretions, hoarseness. 13:24 Respiratory: Positive for cough, with no reported sputum, Negative for shortness of breath, sputum production, wheezing. Exam: 13:24 Constitutional: This is a well developed, well nourished patient who is awake, alert, pm1 and in no acute distress. Head/Face: Normocephalic, atraumatic. 13:24 Neck: Trachea midline, no thyromegaly or masses palpated, and no cervical lymphadenopathy. Supple, full range of motion without nuchal rigidity, or vertebral point tenderness. No Meningismus. 13:24 Back: No spinal tenderness. No costovertebral tenderness. Full range of motion. Skin: Warm, dry with normal turgor. Normal color with no rashes, no lesions, and no evidence of cellulitis. MS/ Extremity: Pulses equal, no cyanosis. Neurovascular intact. Full, normal range of motion. 13:24 ENT: External ear(s): are unremarkable, Ear canal(s): are normal, TM's: are normal, Nose: is normal, Posterior pharynx: Airway: no evidence of obstruction, patent, Tonsils: bilaterally enlarged, with erythema, no exudate, no ulcerations, peritonsillar mass, is not appreciated. 13:24 Cardiovascular: Exam negative for acute changes, Rate: tachycardic, Rhythm: regular, Pulses: no pulse deficits are appreciated, Edema: is not appreciated. 13:24 Respiratory: Exam negative for acute changes, respiratory distress, shortness of breath. 13:24 Abdomen/GI: Exam negative for acute changes, Inspection: abdomen appears normal, Palpation: abdomen is soft and non-tender, in all quadrants. 13:24 Neuro: Exam negative for acute changes, Orientation: is normal, Mentation: is normal, Motor: is normal, moves all fours. Vital Signs: 12:37 BP 118 / 75; Pulse 123; Resp 17; Temp 98.2; Pulse Ox 100% ; jl7 MDM: 12:31 Patient medically screened. pm1 13:24 Data reviewed: vital signs. Data interpreted: Pulse oximetry: on room air is 100 %. pm1 Interpretation: normal. 13:57 Counseling: I had a detailed discussion with the patient and/or guardian regarding: the pm1 historical points, exam findings, and any diagnostic results supporting the discharge/admit diagnosis, lab results, the need for outpatient follow up, to return to the emergency department if symptoms worsen or persist or if there are any questions or concerns that arise at home. 14:05 ED course: Patient reports Bactrim or Cipro about 4 months ago for UTI. History of pm1 multiple uti's. Will give Macrobid since she reports that she has never had that for UTI in the past. 12/05 12:36 Order name: Urine Dipstick-Ancillary (obtain specimen); Complete Time: 12:50 pm1 12/05 12:36 Order name: Urine Test (obtain specimen); Complete Time: 12:50 pm1 Administered Medications: 14:12 Drug: Bicillin L-A 1.2 million units Route: IM; Site: right gluteus; jl7 14:45 Follow up: Response: No adverse reaction jl7 Disposition: 15:00 Co-signature as Attending Physician, Thomas Desai MD. rn Disposition: 12/06/19 13:58 Discharged to Home. Impression: Streptococcal pharyngitis, Urinary tract infection, site not specified. - Condition is Stable. - Discharge Instructions: Strep Throat, Urinary Tract Infection, Adult. - Prescriptions for Pyridium 200 mg Oral Tablet - take 1 tablet by ORAL route every 8 hours for 3 days; 9 tablet. Macrobid 100 mg Oral Capsule - take 1 capsule by ORAL route every 12 hours for 10 days; 20 capsule. - Medication Reconciliation Form, Thank You Letter, Antibiotic Education, Prescription Opioid Use form. - Follow up: Emergency Department; When: As needed; Reason: Worsening of condition. Follow up: Private Physician; When: 2 - 3 days; Reason: Recheck today's complaints, Continuance of care, Re-evaluation by your physician. - Problem is new. - Symptoms have improved. Signatures: Thomas Desai MD MD rn Marinas, Patrick, NP SUPPLY TECHNICIAN pm1 Missy Bee RN RN jl7 Corrections: (The following items were deleted from the chart) 13:58 13:58 12/06/2019 13:58 Discharged to Home. Impression: Urinary tract infection, site pm1 not specified; Streptococcal pharyngitis. Condition is Stable. Forms are Medication Reconciliation Form, Thank You Letter, Antibiotic Education, Prescription Opioid Use. Follow up: Emergency Department; When: As needed; Reason: Worsening of condition. Follow up: Private Physician; When: 2 - 3 days; Reason: Recheck today's complaints, Continuance of care, Re-evaluation by your physician. Problem is new. Symptoms have improved. pm1 14:46 13:58 12/06/2019 13:58 Discharged to Home. Impression: Streptococcal pharyngitisUrinary jl7 tract infection, site not specified. Condition is Stable. Forms are Medication Reconciliation Form, Thank You Letter, Antibiotic Education, Prescription Opioid Use. Follow up: Emergency Department; When: As needed; Reason: Worsening of condition. Follow up: Private Physician; When: 2 - 3 days; Reason: Recheck today's complaints, Continuance of care, Re-evaluation by your physician. Problem is new. Symptoms have improved. pm1
--- NOTE | 2019-12-07 07:26 | ER ---
Nurse's Notes [facility] Name: Rebecca West Age: 29 yrs Sex: Female : 1990 Arrival Date: 12/06/2019 Time: 12:29 Bed 8 Private MD: Diagnosis: Urinary tract infection, site not specified;Streptococcal pharyngitis Presentation: 12/05 12:37 Chief complaint: EMS states: Sore throat x 1 week. Coronavirus screen: Client denies jl7 travel out of the [place] in the last 14 days. sore throat, Client presents with at least one sign or symptom that may indicate coronavirus-19. Standard/surgical mask placed on the client. Provider contacted for isolation considerations. Ebola Screen: No symptoms or risks identified at this time. Initial Sepsis Screen: Does the patient meet any 2 criteria? No. Patient's initial sepsis screen is negative. Does the patient have a suspected source of infection? No. Patient's initial sepsis screen is negative. Risk Assessment: Do you want to hurt yourself or someone else? Patient reports no desire to harm self or others. Onset of symptoms was November 29, 2019. Care prior to arrival: None. Transition of care: patient was not received from another setting of care. 12:37 Method Of Arrival: EMS: [facility] 12:37 Acuity: MARCOS 4 jl7 Triage Assessment: 12:40 General: Appears in no apparent distress. uncomfortable, Behavior is calm, cooperative. jl7 Pain: Complains of pain in sore throat. EENT: Oral mucosa is dry. Throat has patchy exudate has enlarged tonsils. Neuro: Level of Consciousness is awake, alert, obeys commands, Oriented to person, place, time, situation. Cardiovascular: Patient's skin is warm and dry. Respiratory: Airway is patent Respiratory effort is even, unlabored, Respiratory pattern is regular, symmetrical. GI: No signs and/or symptoms were reported involving the gastrointestinal system. : Reports urinary frequency. Derm: Skin is pink, warm \T\ dry. Musculoskeletal: No signs and/or symptoms reported regarding the musculoskeletal system. 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 - Social history:: Smoking status: Patient reports the use of cigarette tobacco products, smokes one pack cigarettes per day. Patient uses street drugs, Methamphetamine (Meth) Patient/guardian denies using alcohol. Screenin:03 Abuse screen: Denies threats or abuse. Denies injuries from another. Nutritional jl7 screening: No deficits noted. Tuberculosis screening: No symptoms or risk factors identified. Fall Risk None identified. Assessment: 13:03 General: See triage assessment. jl7 14:13 Reassessment: pt will be discharged after shot time. jl7 Vital Signs: 12:37 BP 118 / 75; Pulse 123; Resp 17; Temp 98.2; Pulse Ox 100% ; jl7 ED Course: 12:29 Patient arrived in ED. ds1 12:31 Alfa Rudd NP is PHCP. pm1 12:31 Thomas Desai MD is Attending Physician. pm1 12:36 Missy Bee RN is Primary Nurse. jl7 12:40 Triage completed. jl7 12:40 Arm band placed on right wrist. jl7 12:59 Urine collected: clean catch specimen, cloudy, Flu and/or RSV swab sent to lab. Strep jl7 swab sent to lab. COVID-19 swab sent to lab. 13:03 Patient has correct armband on for positive identification. Bed in low position. Call jl7 light in reach. Side rails up X 1. Pulse ox on. NIBP on. Warm blanket given. 14:44 No provider procedures requiring assistance completed. Patient did not have IV access jl7 during this emergency room visit. Administered Medications: 14:12 Drug: Bicillin L-A 1.2 million units Route: IM; Site: right gluteus; jl7 14:45 Follow up: Response: No adverse reaction jl7 Outcome: 13:58 Discharge ordered by . pm1 14:44 Discharged to home ambulatory. jl7 14:44 Condition: stable 14:44 Discharge instructions given to patient, Instructed on discharge instructions, follow up and referral plans. medication usage, Demonstrated understanding of instructions, follow-up care, medications, Prescriptions given X 2. 14:46 Patient left the ED. jl7 Addendum: 12/08/2019 15:22 Addendum: COVID-19 Result: Negative result given to RN to notify pt. Attempted to i w contact pt regarding negative COVID-19 swab results. Other: wrong number. Signatures: Jennifer Salas ds1 Bernadette English, RN SANTO iw Alfa Rudd, UNLOADING CHECKER UNLOADING CHECKER pm1 Missy Bee RN RN jl7
[2019-12-07 08:18] VITALS: BP 118/75; TEMP 98.2; O2SAT 100
== END 2019-12-06 14:46 | disposition home or self-care (01) ==
LOC: ER 12:28
DX: J02.0 Streptococcal pharyngitis (principal); N39.0 Urinary tract infection, site not specified; F17.210 Nicotine dependence, cigarettes, uncomplicated
CPT/HCPCS: 81015; 87077; 87081; 87086; 87088; 87186; 87804; 96372; 99284; J0561; U0002

== ENCOUNTER 2021-01-29 16:56 | Emergency (ER) | payer SELFPAY ==
--- NOTE | 2021-01-29 19:39 | EDPHYS ---
Physician Documentation [facility] Name: Rebecca West Age: 30 yrs Sex: Female : 1990 Arrival Date: 01/29/2021 Time: 16:58 Bed 14 Private MD: ED Physician Thomas Desai HPI: 01/29 17:18 This 30 yrs old Female presents to ER via Ambulatory with complaints of Sore pm1 Throat, Body Aches. 17:18 The patient presents with sore throat. The patient describes throat pain as raw, pm1 scratchy. Onset: The symptoms/episode began/occurred 3 day(s) ago. Severity of symptoms: in the emergency department the symptoms are unchanged. Modifying factors: the symptoms are aggravated by nothing, Patient's oral intake status: good The patient has had contact with sick Children are at home with strep. Associated signs and symptoms: Pertinent positives: chills, cough, Pertinent negatives diarrhea, headache, vomiting. The patient has not experienced similar symptoms in the past. The patient has not recently seen a physician. Historical: - Allergies: 17:07 No Known Allergies; hb - Home Meds: 17:07 None [Active]; hb - PMHx: 17:07 chronic uti; hb - PSHx: 17:07 None; hb - Immunization history:: Client reports having NOT received the Covid vaccine. - Social history:: Smoking status: Patient reports the use of cigarette tobacco products, smokes one-half pack cigarettes per day. ROS: 20:03 Eyes: Negative for injury, pain, redness, and discharge. pm1 20:03 Cardiovascular: Negative for chest pain, palpitations, and edema. 20:03 Abdomen/GI: Negative for abdominal pain, nausea, vomiting, diarrhea, and constipation, Back: Negative for injury and pain, MS/Extremity: Negative for injury and deformity, Skin: Negative for injury, rash, and discoloration. 20:03 Constitutional: Positive for chills, Negative for poor PO intake. 20:03 ENT: Positive for sore throat, Negative for ear pain, difficulty swallowing, difficulty handling secretions. 20:03 Respiratory: Positive for cough, Negative for shortness of breath. 20:03 All other systems are negative. Exam: 20:03 Constitutional: This is a well developed, well nourished patient who is awake, alert, pm1 and in no acute distress. Head/Face: Normocephalic, atraumatic. 20:03 Skin: Warm, dry with normal turgor. Normal color with no rashes, no lesions, and no evidence of cellulitis. MS/ Extremity: Pulses equal, no cyanosis. Neurovascular intact. Full, normal range of motion. 20:03 Eyes: Exam is negative for acute changes, Extraocular movements: no acute changes, Conjunctiva: no acute changes, no injection, Sclera: no acute changes, icterus, is not appreciated. 20:03 ENT: External ear(s): are unremarkable, Ear canal(s): are normal, TM's: no acute changes, Mouth: no acute changes, Lips: normal, moist, Oral mucosa: normal, pink and intact, moist, Posterior pharynx: Tonsils: bilaterally enlarged, with erythema, no exudate, no ulcerations, erythema, that is moderate, peritonsillar mass, is not appreciated, pooling of secretions, is not appreciated. 20:03 Cardiovascular: Exam negative for acute changes, Rate: normal, Rhythm: regular, Pulses: no pulse deficits are appreciated. 20:03 Respiratory: Exam negative for acute changes, respiratory distress, shortness of breath, Breath sounds: are clear throughout. 20:03 Abdomen/GI: Inspection: abdomen appears normal, Palpation: abdomen is soft and non-tender, in all quadrants. 20:03 Neuro: Exam negative for acute changes, Orientation: is normal, Mentation: is normal, Motor: is normal, moves all fours. Vital Signs: 17:06 BP 113 / 56; Pulse 79; Resp 16; Temp 98.4(O); Pulse Ox 100% on R/A; Weight 56.7 kg; hb Height 5 ft. 1 in. (154.94 cm); Pain 8/10; 17:06 Body Mass Index 23.62 (56.70 kg, 154.94 cm) hb MDM: 17:08 Patient medically screened. pm1 17:18 Data reviewed: vital signs. Data interpreted: Pulse oximetry: on room air is 100 %. pm1 Interpretation: normal. 19:34 Counseling: I had a detailed discussion with the patient and/or guardian regarding: the pm1 historical points, exam findings, and any diagnostic results supporting the discharge/admit diagnosis, lab results, the need for outpatient follow up, to return to the emergency department if symptoms worsen or persist or if there are any questions or concerns that arise at home. 19:36 ED course: Patient reports that her children were diagnosed with strep possibly with pm1 swab versus clinically. The patient would like to go home with antibiotics. 01/29 17:15 Order name: Flu; Complete Time: 18:56 pm1 01/29 17:15 Order name: Strep; Complete Time: 18:56 pm1 01/29 17:16 Order name: COVID-19 : Document "Date of Symptom Onset" if Symptomatic. pm1 01/29 17:55 Order name: Throat Culture EDMS 01/29 19:07 Order name: SARS-COV-2 RT PCR; Complete Time: 19:34 EDMS 01/29 17:15 Order name: Droplet/Contact Precautions; Complete Time: 17:19 pm1 01/29 17:15 Order name: Labs collected and sent; Complete Time: 17:19 pm1 01/29 17:15 Order name: O2 Per Protocol; Complete Time: 17:19 pm1 Administered Medications: No medications were administered Disposition: 01/30 06:59 Co-signature as Attending Physician, Thomas Desai MD I agree with the assessment and rn plan of care. Attestation: The patient's history, exam findings, diagnostics, and a summary of any interventions or procedures was reviewed in detail with Alfa Rudd NP. Disposition Summary: 01/29/21 19:38 Discharge Ordered Location: Home pm1 Problem: new pm1 Symptoms: have improved pm1 Condition: Stable pm1 Diagnosis - Acute pharyngitis, unspecified pm1 Followup: pm1 - With: Emergency Department - When: As needed - Reason: Worsening of condition Followup: pm1 - With: Private Physician - When: 2 - 3 days - Reason: Recheck today's complaints, Continuance of care, Re-evaluation by your physician Discharge Instructions: - Discharge Summary Sheet pm1 - Pharyngitis pm1 Forms: - Medication Reconciliation Form pm1 - Thank You Letter pm1 - Antibiotic Education pm1 - Prescription Opioid Use pm1 Prescriptions: - Zithromax Z-Ravin 250 mg Oral Tablet - take 1 tablet by ORAL route as directed for 5 days Day 1 - take two (2) tablets pm1 one time. Day 2, 3, 4 , 5 take one (1) tablet once daily.; 6 tablet; Refills: 0, Product Selection Permitted Signatures: Dispatcher [employer] EDMS Thomas Desai MD MD rn Marinas, Patrick, PRINTING MACHINIST PRINTING MACHINIST pm1 Brenna Collins RN RN Corrections: (The following items were deleted from the chart) 01/29 17:58 17:16 CORONAVIRUS ordered. EDMS EDMS
--- NOTE | 2021-01-29 19:39 | ER ---
Nurse's Notes [facility] Name: Rebecca West Age: 30 yrs Sex: Female : 1990 Arrival Date: 01/29/2021 Time: 16:58 Bed 14 Private MD: Diagnosis: Acute pharyngitis, unspecified Presentation: 01/29 17:06 Chief complaint: Sore throat, cough, and body aches x 2 days. Children at home have hb strep. Coronavirus screen: Client presents with at least one sign or symptom that may indicate coronavirus-19. Standard/surgical mask placed on the client. Provider contacted for isolation considerations. Ebola Screen: No symptoms or risks identified at this time. Risk Assessment: Do you want to hurt yourself or someone else? Patient reports no desire to harm self or others. Onset of symptoms was January 28, 2021. 17:06 Method Of Arrival: Ambulatory hb 17:06 Acuity: MARCOS 4 hb 18:06 Initial Sepsis Screen: Does the patient meet any 2 criteria? No. Patient's initial kh1 sepsis screen is negative. 19:58 Initial Sepsis Screen: Does the patient have a suspected source of infection? No. bs2 Patient's initial sepsis screen is negative. Triage Assessment: 19:59 General: Appears in no apparent distress. distressed, comfortable, Behavior is calm, bs2 cooperative, appropriate for age. Historical: - Allergies: 17:07 No Known Allergies; hb - Home Meds: 17:07 None [Active]; hb - PMHx: 17:07 chronic uti; hb - PSHx: 17:07 None; hb - Immunization history:: Client reports having NOT received the Covid vaccine. - Social history:: Smoking status: Patient reports the use of cigarette tobacco products, smokes one-half pack cigarettes per day. Screenin:15 Abuse screen: Denies threats or abuse. Denies injuries from another. Nutritional ch5 screening: No deficits noted. Tuberculosis screening: No symptoms or risk factors identified. Fall Risk None identified. Assessment: 17:15 Reassessment: No changes from previously documented assessment. Respiratory: Airway is ch5 patent Trachea midline Respiratory effort is even, Respiratory pattern is regular, Sputum is thick, Onset: The symptoms/episode began/occurred. EENT: Throat is clear is pink. 18:06 Reassessment: Patient appears in no apparent distress at this time. No changes from [facility] previously documented assessment. Patient and/or family updated on plan of care and expected duration. Pain level reassessed. Patient is alert, oriented x 3, equal unlabored respirations, skin warm/dry/pink. 18:07 Pain: Complains of pain in sorethroat Pain does not radiate. Pain currently is 3 out of kh1 10 on a pain scale. Quality of pain is described as sharp. Vital Signs: 17:06 BP 113 / 56; Pulse 79; Resp 16; Temp 98.4(O); Pulse Ox 100% on R/A; Weight 56.7 kg; hb Height 5 ft. 1 in. (154.94 cm); Pain 8/10; 17:06 Body Mass Index 23.62 (56.70 kg, 154.94 cm) hb ED Course: 16:58 Patient arrived in ED. ds1 17:07 Triage completed. hb 17:07 Arm band placed on. 17:08 Alfa Rudd NP is PHCP. pm1 17:08 Thomas Desai MD is Attending Physician. pm1 17:15 Patient has correct armband on for positive identification. Bed in low position. Call ch5 light in reach. Side rails up X2. 17:19 COVID-19 : Document "Date of Symptom Onset" if Symptomatic. Sent. [facility] 17:43 Annette Schmitz is Primary Nurse. [facility] 17:43 Flu Sent. 1 17:43 Strep Sent. 1 19:58 Primary Nurse role handed off by Annette Schmitz tt3 19:58 Throat Culture Sent. bs2 19:59 No provider procedures requiring assistance completed. Patient did not have IV access bs2 during this emergency room visit. Administered Medications: No medications were administered Outcome: 19:38 Discharge ordered by . pm1 19:59 Discharged to home ambulatory. bs2 19:59 Condition: improved 19:59 Discharge instructions given to patient, Instructed on discharge instructions, follow up and referral plans. medication usage, Demonstrated understanding of instructions, follow-up care, medications, Prescriptions given X 1. 19:59 Patient left the ED. bs2 Signatures: Jennifer Salas ds1 Alfa Rudd NP [employer]IN[employer] LOCOMOTIVE ENGINEER pm1 Brenna Collins RN RN Riley Gonzalez tt3 Ilana Núñez RN RN bs2 Annette Schmitz kh1 Tomi Hackett, RN RN ch5
[2021-01-29 20:05] VITALS: BP 113/56; TEMP 98.4; O2SAT 100
== END 2021-01-29 19:59 | disposition home or self-care (01) ==
LOC: ER 16:56
DX: J02.9 Acute pharyngitis, unspecified (principal); Z20.822 Contact with and (suspected) exposure to COVID-19; F17.210 Nicotine dependence, cigarettes, uncomplicated
CPT/HCPCS: 87070; 87081; 87804; 99283; U0003

== ENCOUNTER 2021-07-20 12:39 | Emergency (ER) | payer OTHER ==
--- OUTSIDE RECORDS SUMMARY | 2021-07-20 12:43 | XMS REPORT | Continuity of Care Document ---
:1990 Author Organization [facility] t Address [address] [place] [address] Care Team Providers Name Role Phone Kelly Dougherty Primary Care Physician ANTOLIN Attending Clinician Unavailable Antolin NEGRETE Attending Clinician Dangelo JAEGER Attending Clinician Israel NEGRETE Attending Clinician ISMAEL FARLEY Attending Clinician Unavailable ANTOLIN Admitting Clinician Unavailable Antolin NEGRETE Admitting Clinician Payers Payer Name Policy Type Policy Number Effective Date Expiration Date S our MEDICAID OF [id number] 2021 [place] 00:00:00 [facility] NA [facility] Advance Directives Directive Decision Effective Termination Comments Source Date Date Healthcare Agents on N/A Univ ersity FileNameRelationshipHealthcare of [place] Agent Medical RelationshipCommunicationJennie [facility] LinloffFatherFirst [facility] [phone] (Home) Problems Condition Condition Condition Status Onset Resolution Last Treating Co mments Source Name Details Category Date Date Treatment Clinician Date Normal Normal Disease Active Univers labor labor 3-08 ity of 00:00: [place] 00 [facility] No No Disease Active Univers 3-08 ity of care in care in 00:00: [place] current current 00 Medical Bran ch in third in third trimester trimester Liveborn Liveborn Disease Active Unive rs infant, of infant, of 3-08 [place] of [place] , , 00 [place] dical born in born in [facility] hospital by vaginal by vaginal delivery delivery Encounter Encounter Disease Active 2016-04 Uni vers for for 1-20 [place] of [place] of mirena of mirena 00 Medi foster IUD IUD Branch Anemia, Anemia, Disease Active 2016-04 Univers 0-03 it y of 00:00: [place] [address] [place] [address] Papanicola Papanicola Disease Active U nivers ou smear ou smear 06-26 ity of of cervix [place] with low with low 00 Medica l grade grade 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 Social History Social Habit Start Date Stop Date Quantity Comments Source Exposure to Not sure University of SARS-CoV-2 [place] Medical (event) Branch Tobacco use and 2021-07-03 2021-07-03 Never used Universit y of exposure 00:00:00 00:00:[address] [facility] Alcohol intake 2021-07-03 2021-07-03 0 /d University of 00:00:00 00:00:[address] [facility] History of 2011-06-20 2017-03-10 Cigarette Smoker Universi ty of tobacco use 00:00:00 00:00:[address] [facility] Sex [birth year] At [birth year] Universit y of 00:00:00 00:00:[address] [facility] Smoking Status Start Date Stop Date Source Current some day smoker 2021-07-03 00:00:00 [facility] ersity of [facility] Medications Ordered Filled Start Stop Current Ordering Indication Dosage Frequency Signature Comments Components Source Medication Medication Date Date Medication? Clinician (SIG) Name Name METHADONE Yes Take by Univ ers HCL 3-10 mouth. ity of (METHADONE 20:26: [place] ORAL) 24 [facility] [place] METHADONE Yes Take by [facility] ers HCL 3-10 mouth. ity of (METHADONE 20:26: [place] ORAL) 24 Medical Branch ibuprofen Yes [id number] 600mg Take 1 U nivers 600 mg 3-10 tablet by ity of tablet 00:00: mouth [place] 00 every 6 Medical (six) Branch hours as needed (Pain). Take with food or milk. Yes [id number] 1{tbl} Take 1 U nivers vitamin 3-10 tablet by ity of w/FA tablet 00:00: mouth [place] 00 daily. Medical Branch docusate Yes [id number] 240mg Take 1 Un forrest calcium 240 3-10 capsule by it y of mg capsule 00:00: mouth once [place] 00 daily as Medical needed for Branch Constipati on. ferrous Yes [id number] 325mg Take 1 Uni vers sulfate 325 3-10 tablet by ity of mg (65 mg 00:00: mouth 2 [place] iron) 00 (two) Medical tablet times Branch daily. ibuprofen Yes [id number] 600mg Take 1 U nivers 600 mg 3-10 tablet by ity of tablet 00:00: mouth [place] 00 every 6 Medical (six) Branch hours as needed (Pain). Take with food or milk. Yes [id number] 1{tbl} Take 1 U nivers vitamin 3-10 tablet by ity of w/FA tablet 00:00: mouth [place] 00 daily. Medical Branch docusate Yes [id number] 240mg Take 1 Un forrest calcium 240 3-10 capsule by it y of mg capsule 00:00: mouth once [place] 00 daily as Medical needed for Branch Constipati on. ferrous Yes [id number] 325mg Take 1 Uni vers sulfate 325 3-10 tablet by ity of mg (65 mg 00:00: mouth 2 [place] iron) 00 (two) Medical tablet times Branch daily. rho(D) Yes 300ug 300 mcg, Univer s immune 3-09 Intramuscu ity of globulin 00:08: lar, ONCE, Abhijit as (RHOGAM) 59 For 1 Medical syringe 300 dose, Branch mcg Conditiona l, Routine HYDROcodone Yes 1{tbl} 1 tablet, Univers -acetaminop 3-09 Oral, ity of hen (NORCO 00:08: Q6HPRN, [place] 5) 5-325 mg 13 Starting Medi foster tablet 1 on Branch tablet 07/03/21 at 1808, Until Discontinu ed, Routine, Pain (scale 7-10) ibuprofen Yes 600mg 600 mg, Univ ers (IBU) 3-09 Oral, ity of tablet 600 00:08: Q6HPRN, [place] mg 13 Starting Medical on Fri Branch 07/03/21 at 1808, Until Discontinu ed, Routine, Pain (scale 4-6) acetaminoph Yes 650mg 650 mg, Un forrest en 3-09 Oral, ity of (TYLENOL) 00:08: Q6HPRN, [place] tablet 650 13 Starting Medic al mg on Branch 07/03/21 at 1808, Until Discontinu ed, Routine, Pain (scale 1-3) diphenhydrA Yes 25mg 25 mg, Univ ers MINE 3-09 Oral, ity of (BENADRYL) 00:08: Q6HPRN, [place] tablet 25 13 Starting Medica l mg on Branch 07/03/21 at 1808, Until Discontinu ed, Routine, Sleep, Itching ondansetron Yes 4mg 4 mg, Slow Univers (ZOFRAN 309 IV Push, ity of (PF)) 00:08: Q8HPRN, [place] injection 4 13 Starting Medi foster mg on [facility] Branch 07/03/21 at 1808, Until Discontinu ed, Routine, Nausea and Vomiting (N/V) docusate Yes 240mg 240 mg, Unive rs calcium 3-09 Oral, ity of (SURFAK) 00:08: QDAILYPRN, Abhijit as capsule 240 13 Starting Medi foster mg on e Branch 07/03/21 at 1808, Until Discontinu ed, Routine, Constipati on magnesium Yes 30mL 30 mL, Univer s hydroxide 09 Oral, ity of (MILK OF 00:08: QDAILYPRN, Abhijit as MAGNESIA) 13 Starting Medica l 400 mg/5 mL on [facility] Branch suspension 07/03/21 at 30 mL 1808, Until Discontinu ed, Routine, Constipati on benzocaine- Yes Topical, Un forrest menthol 09 PRN, ity of (DERMOPLAST 00:08: [place] 20-0.5 % 13 on [facility] Medical topical 07/03/21 at Branch spray 1808, Until Discontinu ed, Routine, Perineum discomfort fentaNYL-ro 2021- No Epidural, Univers pivacaine 2 07-0309 ONCE INTRA i ty of mcg/mL-0.1 19:16: 03:15 PROCEDURE, [place] % (PF) in 00 :23 Starting Medica l NS 200 mL on Fri Branch epidural 07/03/21 at infusion 1316, RTU Until Fri07/03/21 at 2115, Routine, Intra-op lidocaine-e 2021- No Epidural, Univers pinephrine 07-03 03-09 ONCE INTRA it y of (XYLOCAINE 19:15: 03:15 PROCEDURE, [place] W/EPINEPHRI 00 :23 Starting Medi foster NE) 1.5 on Fri Branch %-1:200,000 07/03/21 at injection 1315, Until e 07/03/21 at 2115, Routine, Intra-op lidocaine 2021- No Infiltrati U nivers 1% 07-03 on, ONCE ity of (XYLOCAINE) 19:10: 03:15 INTRA [place] 100 mg/10 00 :23 PROCEDURE, Medi foster mL (1 %) Starting Branch injection on Fri07/03/21 at 1310, Until Fri07/03/21 at 2115, Routine, Intra-op METHADONE Yes Take by Univ ers HCL 07-03 mouth. ity of (METHADONE 18:09: [place] ORAL) 01 Medical Branch D5W-LR IV 2021- No 1000mL at 125 Uni vers infusion 07-03 mL/hr, IV ity o f 1,000 mL 18:00: 00:09 Infusion, Abhijit as 00 :00 CONTINUOUS Medical , Starting Branch on Fri07/03/21 at 1200, Until Fri07/03/21 at 1809, Routine FENTanyl PF 2021- No 50ug 50 mcg, Un forrest (SUBLIMAZE 07-03 Slow IV ity o f (PF)) 17:58: 00:09 Push, [place] injection 31 :00 Q1HPRN, 2 Medic al 50 mcg doses, Branch Starting on Fri07/03/21 at 1158, Until Fri07/03/21 at 1809, Routine, Pain (scale 7-10) sodium 2021- No 30mL 30 mL, Univers citrate-cit 07-03 Oral, ity of [place] acid 17:45: 19:03 PRE-PROCED [place] (BICITRA) 00 :00 URE ONCE, Medic al 500-334 1 dose, Branch mg/5 mL Starting solution 30 on Fri mL 07/03/21 at 1145, Until Discontinu ed, Routine, Surgery/Pr ocedure 2016-04 Yes 1{tbl} Take 1 Unive rs vitamin 0-02 tablet by ity of w/FA tablet 00:00: mouth [place] 00 daily. Medical Branch 2016-04- No 1{tbl} Take 1 Univ ers vitamin 0-02 03-10 tablet by ity of w/FA tablet 00:00: 00:00 [place] 00 :00 daily. Medical Branch 2016-04- No 1{tbl} Take 1 Univ ers vitamin 0-02 03-10 tablet by ity of w/FA tablet 00:00: 00:00 [place] 00 :00 daily. [facility] [place] Immunizations Ordered Filled Immunization Date Status Comments Sourc e Immunization Name Name HPV9 2017-03-07 Completed University of 00:00:[address] [facility] HPV9 2017-03-07 Completed University of 00:00:[address] [facility] HPV9 2017-03-07 Completed University of 00:00:[address] [facility] HPV9 2017-01-26 Completed University of 00:00:[address] [facility] HPV9 2017-01-26 Completed University of 00:00:[address] [facility] HPV9 2017-01-26 Completed University of 00:00:[address] [facility] TDAP 2016-11-05 Completed University of 00:00:[address] [facility] TDAP 2016-11-05 Completed University of 00:00:[address] [facility] TDAP 2016-11-05 Completed University of 00:00:[address] [facility] Vital Signs Vital Name Observation Time Observation Value Comments Source Systolic blood 2021-07-05 13:30:00 124 mm[Hg] Univer sity of pressure [facility] Diastolic blood 2021-07-05 13:30:00 65 mm[Hg] Unive rsity of pressure [facility] Heart rate 2021-07-05 13:30:00 84 /min [facility] Body temperature 2021-07-05 13:30:00 36.72 India [facility] Respiratory rate 2021-07-05 13:30:00 18 /min [facility] Oxygen saturation in 2021-07-05 01:49:00 98 /min [facility] Arterial blood by [facility] Pulse oximetry [place] Body height 2021-07-03 16:35:00 154.9 cm [facility] Body weight 2021-07-03 16:35:00 64.864 kg [facility] BMI 2021-07-03 16:35:00 27.02 kg/m2 [facility] Procedures Procedure Date / Time Performing Clinician Source Performed CBC WITH DIFF 2021-07-04 10:04:00 Diana Dangelo [place] o f [facility] CENTRAL NEURAXIAL BLOCK 2021-07-03 19:25:42 Naseem Pierson [facility] URINE DRUG (IMMUNOASSAY) 2021-07-03 18:08:00 Fish, Diana [facility] - COMPREHENSIVE DRUG Medical [facility] nc SCREEN URINE DRUG (LCMSMS) - 2021-07-03 18:08:00 Fish, Diana Walsh [facility] SYNTHETIC OPIATES PANEL [facility] CBC WITH DIFF 2021-07-03 18:07:00 Fish, Diana [facility] RUBELLA SCREEN IGG 2021-07-03 18:07:00 Fish, Diana [facility] y [facility] VZV ANTIBODY SCREEN 2021-07-03 18:07:00 Fish, Diana [facility] HEPATITIS B SURFACE 2021-07-03 18:07:00 Fish, Diana [facility] ANTIGEN [facility] HCV ANTIBODY 2021-07-03 18:07:00 Fish, [facility] ADC OR MONIKA ONLY - RPR 2021-07-03 18:07:00 Fish, Diana [facility] HIV 1/2 AG-AB WITH REFLEX 2021-07-03 18:07:00 Fish, Diana Jaime [facility] HB ABO GROUPING 2021-07-03 17:45:00 Antolin, [facility] RHO (D) IMMUNE GLOBULIN 2021-07-03 17:45:00 Diana Dangelo [facility] COVID-19 (ID NOW RAPID 2021-07-03 17:28:[address] [facility] TESTING) Medical Branch LAB ONLY COVID 2021-07-03 17:28:00 Antolin [facility] INTERPRETATION [facility] NOTICE OF PRIVACY 2021-07-03 16:12:03 Doctor Unassigned, [facility] PRACTICES [facility] CONSENT/REFUSAL FOR 2021-07-03 16:11:46 Doctor Unassjuliano, [facility] DIAGNOSIS AND TREATMENT [facility] Encounters Start End Encounter Admission Attending Care Care Encounter Source Date/Time Date/Time Type Type Clinicians Facility Department ID 2021-07-03 2021-07-05 Inpatient X DIANA DANGELO [facility] ABRAN [id number] Univers 10:15:00 18:30:00 [facility] 2021-07-03 2021-07-05 Hospital Diana Dangelo [facility] [id number] Univers 10:15:00 18:30:00 Encounter KETURAH [id number] ity [facility] 4.2.7.2.686 [facility] [id number] [place] [address] Branch 2021-07-04 2021-07-04 Anesthesia Dangelo [facility] [id number] Univers 20:02:25 20:02:25 Event Naseem REBOLLAR [id number] i ty of [facility] 4.2.7.2.686 [facility] [id number] [place] [address] Branch 2021-07-03 2021-07-03 Anesthesia Naseem Pierson [facility] [id number] [facility] 13:03:00 19:50:00 Event Kim Wood [id number] ity of [facility] [id number] [facility] [id number] [place] [address] Branch 2019-02-28 2019-02-28 Departed [facility] [id number] [facility] 11:28:00 12:47:[address] Results Test Description Test Time Test Comments Results Result Comments Source Rubella Screen (DANIELLE) IgG 2021-07-04 18:13:10 Test Item Value Reference Range Interpretation Comme nts Rubella screen IgG (test code = Negative Negative [id number]) ELISE (test code = ELISE) Positive - Indicates the patient was exposed to Rubella through infection or vaccination.Negative - Indicates the patient could be susceptible to Rubella infection.Equivocal - A second specimen should be sent. [facility] ANTIBODY [id number] 18:13:10 Test Item Value Reference Range Interpretation Comments VZV IgG antibody Positive Negative (test code = 14891-3) ELISE (test code = ELISE) Positive - Indicates the patient was exposed to VZV through infection or vaccination.Negative - Indicates the patient could be susceptible to VZV infection.Equivocal - A second specimen should be sent for testing. [facility] with [id number] 11:05:25 Test Item Value Reference Range Interpretation Comments WBC (test code = See_Comment H [Automated 6690-2) message] The system which generated this result transmit dayami reference range : 4.30 - 11.10 10*3/?L. The reference range was not used to interpret this result as normal/abnormal . RBC (test code = See_Comment [Automated 789-8) message] The system which generated this result transmit dayami reference range : 3.93 - 5.25 10*6/?L. The reference range was not used to interpret this result as normal/abnormal . HGB (test code = 10.5 g/dL 11.6-15.0 L 718-7) HCT (test code = 33.8 % 35.7-45.2 L 4544-3) MCV (test code = 86.0 fL 80.6-95.5 787-2) MCH (test code = 26.7 pg 25.9-32.8 785-6) MCHC (test code = 31.1 g/dL 31.6-35.1 L 786-4) RDW-SD (test code = 42.8 fL 39.0-49.9 01035-2) RDW-CV (test code = 13.8 % 12.0-15.5 788-0) PLT (test code = See_Comment [Automated 777-3) message] The system which generated this result transmit dayami reference range : 166 - 358 10*3/ ?L. The reference range was not u sed to interpret th is result as normal/abnormal . MPV (test code = 12.9 fL 9.5-12.9 97010-2) NRBC/100 WBC (test See_Comment [Automat ed code = 3159817247) message] The system which generated this result transmit dayami reference range : 0.0 - 10.0 /100 WBCs. The reference range was not used to interpret this result as normal/abnormal . NRBC x10^3 (test code <0.01 See_Comment [Auto mated = 9337803615) message] The system which generated this result transmit dayami reference range : 10*3/?L. The reference range was not used to interpret this result as normal/abnormal . GRAN MAT (NEUT) % 74.4 % (test code = 770-8) IMM GRAN % (test code 1.00 % = 4180584669) LYMPH % (test code = 16.2 % 736-9) MONO % (test code = 7.6 % 5905-5) EOS % (test code = 0.4 % 713-8) BASO % (test code = 0.4 % 706-2) GRAN MAT x10^3(ANC) 13.76 10*3/uL 1.88-7.09 H (test code = 2498169427) IMM GRAN x10^3 (test 0.18 10*3/uL 0.00-0.06 H code = 6820313335) LYMPH x10^3 (test code 3.00 10*3/uL 1.32-3.29 = 731-0) MONO x10^3 (test code 1.41 10*3/uL 0.33-0.92 H = 742-7) EOS x10^3 (test code = 0.08 10*3/uL 0.03-0.39 711-2) BASO x10^3 (test code 0.08 10*3/uL 0.01-0.07 H = 704-7) Lab Interpretation Abnormal (test code = 63139-8) [facility] ONLY - [id number] 07:00:46 Test Item Value Reference Range Interpretation Comments RPR (Qualitative) (test code = Nonreactive Nonreactive 04145-2) Lab Interpretation (test code = Normal 90768-8) [facility] CenterHCV [id number] 03:32:20 Test Item Value Reference Range Interpretation Comments HCV Ab (test code = 46923-0) Negative HCV Semi-Quantitative (test code = 83473-1) [facility] CenterHepatitis B Surface [id number] 03:14:38 Test Item Value Reference Range Interpretation Comments HBsAg Semi-Quantitative (test code = Negative Negative 5195-3) [facility] CenterRHO (D) IMMUNE [id number] 02:10:14 Test Item Value Reference Range Interpretation Comments RHIG CANDIDATE? No- see comment Patient i s not a (test code = candidate for R hIg- 5055) Patient is Rh Positive.Perfor med at [facility] Laboratory Services - [facility] Blood [address] [place], [place] [address]Toll Free: [phone] A No. [id number] [facility] CenterHIV 1/2 AG-AB WITH [id number] 19:51:48 Test Item Value Reference Range Interpretation Comments HIV Negative Negative Semi-quantitative (test code = 81581-2) ELISE (test code = Non-reactive for HIV-1 ELISE) antigen and HIV-1/HIV-2 antibodies. ?No laboratory evidence of HIV infection. ?Repeat in 2-4 weeks if acute HIV infection is suspected. [facility] CenterType and Screen - ONCE [id number] 19:05:44 Test Item Value Reference Range Interpretation Comments ABO & RH (test code B Positive Performe d at [facility] = 20) Laboratory Serv [facility] Blood Bank[address] [place], [place] [address]Toll Free: [phone] A No. [id number] IAT (test code = Negative Performed a t [facility] 1185) Laboratory Serv [facility] Blood Bank[address] [place], [place] [address]Toll Free: [phone] A No. [id number] [facility] CenterCBC with [id number] 18:24:36 Test Item Value Reference Range Interpretation Comments WBC (test code = See_Comment H [Automated 3306-2) message] The sy stem which generated this result transmitted reference range : 4.30 - 11.10 10*3/?L. The reference range was not used to interpret this result as normal/abnormal . RBC (test code = See_Comment [Automated 061-8) message] The sy stem which generated this result transmitted reference range : 3.93 - 5.25 10*6/?L. The reference range was not used to interpret this result as normal/abnormal . HGB (test code = 11.1 g/dL 11.6-15.0 L 718-7) HCT (test code = 34.7 % 35.7-45.2 L 4544-3) MCV (test code = 84.6 fL 80.6-95.5 787-2) MCH (test code = 27.1 pg 25.9-32.8 785-6) MCHC (test code = 32.0 g/dL 31.6-35.1 786-4) RDW-SD (test code = 41.6 fL 39.0-49.9 41184-0) RDW-CV (test code = 13.5 % 12.0-15.5 788-0) PLT (test code = See_Comment [Automated 777-3) message] The sy stem which generated this result transmitted reference range : 166 - 358 10*3/ ?L. The reference r danie was not used to interpret this result as normal/abnormal . MPV (test code = 12.5 fL 9.5-12.9 01174-0) NRBC/100 WBC (test See_Comment [Automat ed code = 3653813093) message] The system which generated this result transmitted reference range : 0.0 - 10.0 /100 WBCs. The refer ence range was not u sed to interpret th is result as normal/abnormal . NRBC x10^3 (test code <0.01 See_Comment [Auto mated = 8326025369) message] The s ystem which generated this result transmitted reference range : 10*3/?L. The reference range was not used to interpret this result as normal/abnormal . GRAN MAT (NEUT) % 77.2 % (test code = 770-8) IMM GRAN % (test code 0.80 % = 3349257847) LYMPH % (test code = 13.3 % 736-9) MONO % (test code = 7.1 % 5905-5) EOS % (test code = 1.1 % 713-8) BASO % (test code = 0.5 % 706-2) GRAN MAT x10^3(ANC) 9.21 10*3/uL 1.88-7.09 H (test code = 2117024224) IMM GRAN x10^3 (test 0.09 10*3/uL 0.00-0.06 H code = 0924480329) LYMPH x10^3 (test code 1.58 10*3/uL 1.32-3.29 = 731-0) MONO x10^3 (test code 0.84 10*3/uL 0.33-0.92 = 742-7) EOS x10^3 (test code = 0.13 10*3/uL 0.03-0.39 711-2) BASO x10^3 (test code 0.06 10*3/uL 0.01-0.07 = 704-7) Lab Interpretation Abnormal (test code = 05443-0) [facility]- XR CHEST 2 [id number] 17:17:00 FAX: Valarie Sorto NP [phone] [place]: St: PRE Patient Name: GALI BRAR Unit No: [id number] EXAMS: CPT CODE: [id number] XR CHEST 2 V 93129 Exam: Chest 2 views Location: H 12 History: fever Comparison: 01/23/2015. Findin gs: The lungs are clear. No infiltrate or effusion is seen. The pulmonary vasculature isnormal. The heart size is normal. The mediastinal silhouette is unremarkable. The bony thorax is intact. Impression: No acute disease. at 6994 Reported and signed by: Leonard Mckeon MD CC: Valarie Gonzáles NP Dictated Date/Time: 04/24/2019 (461)Technologist: Antolin Best Transcribed Date/Time: 04/24/2019 (543) By: Minerva Orig Print D/T: S: 04/24/2019 (8710) [facility] [place] NAME: GALI BRAR [address] [place] [address] Blvd PHYS: Valarie Cartagena [place], [place] [address] : 1990 AGE: 28 SEX: F LOC: B.ERS PHONE #: [phone] EXAM DATE: 04/24/2019 STATUS: PRE ER FAX #: [phone] RAD NO: DC Dt: PAGE 1 Signed ReportAG STREP GROUP A (THROAT)2019-04-24 16:29:00 Test Item Value Reference Range Interpretation Comments AG STREP GROUP A NEG SCREEN NEG STREP A NTIGEN (THROAT) (test SCREENING:Ant igen code = STREPA) screening kelsie t; suggest confirmation by culture.INTERPR ETATION OF STREP ANTIGEN R ESULTS:WHEN STREP GROUP A A NTIGEN IS NOT DETECTED, T HE NEGATIVERESULT DOES NOT RULE OUT THE LA ESENCE OF STREP GROUP A.W HEN STREP GROUP A ANTIGEN IS DETECTED, THE P OSITIVE RESULTIS SIGNIF ICANT. NEGATIVE RESULT S REFLEX A CULTURE. FORNE GATIVE RESULTS A CULTU RE IS IN PROGRESS, RESUL T TO FOLLOW. WOUND CULTURE + GRAM [id number] 09:25:00 Test Item Value Reference Interpretation Comments [...] No organisms seen (BEAKER) (test code = 876351)
--- NOTE | 2021-07-20 13:15 | EDPHYS ---
Physician Documentation [facility] Name: Rebecca West Age: 31 yrs Sex: Female : 1990 Arrival Date: 07/20/2021 Time: 12:46 Bed 24 Private MD: ED Physician Thomas Desai HPI: 07/20 13:09 This 31 yrs old Female presents to ER via Unassigned with complaints of Mouth Swelling. rn 13:09 The patient presents with pain, swelling. The problem is located in the right cheek rn swelling. Onset: The symptoms/episode began/occurred yesterday. Duration: The symptoms are continuous. Modifying factors: The symptoms are alleviated by nothing, the symptoms are aggravated by chewing, talking. Associated signs and symptoms: Pertinent positives: pain, swelling, Pertinent negatives: dysphagia, fever, vomiting. Severity of symptoms: At their worst the symptoms were moderate, in the emergency department the symptoms are unchanged. The patient has experienced similar episodes in the past. The patient has not recently seen a physician. Pt reports swelling and pain to right cheek and right mandibular region, no trauma, has happened multiple times in past, has had several teeth pulled in past because of this, just began yesterday.. 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 - Social history:: Smoking status: unknown. - Family history:: not pertinent. - Hospitalizations: : No recent hospitalization is reported. ROS: 13:09 Constitutional: Negative for fever, chills, and weight loss, Eyes: Negative for injury, rn pain, redness, and discharge, ENT: + right cheek and dental pain Neck: Negative for injury, pain, and swelling, Respiratory: Negative for shortness of breath, cough, wheezing, and pleuritic chest pain, Neuro: Negative for headache, weakness, numbness, tingling, and seizure. Exam: 13:09 Constitutional: This is a well developed, well nourished patient who is awake, alert, rn and in no acute distress. Head/Face: Atraumatic. Eyes: Pupils equal round and reactive to light, extra-ocular motions intact. Lids and lashes normal. Conjunctiva and sclera are non-icteric and not injected. Cornea within normal limits. Periorbital areas with no swelling, redness, or edema. ENT: Poor dentition with multiple teeth missing. + right buccal mucosa swelling and induration without fluctuance. Vital Signs: 13:29 BP 121 / 74; Pulse 94; Resp 18; Temp 97.8; Pulse Ox 96% on R/A; Weight 49.9 kg; Height ph 5 ft. 4 in. (162.56 cm); 13:29 Body Mass Index 18.88 (49.90 kg, 162.56 cm) ph MDM: 13:04 Patient medically screened. rn 13:09 Differential diagnosis: dental caries, dental abscess, buccal cellulitis. Data rn reviewed: vital signs, nurses notes, and as a result, I will discharge patient. Counseling: I had a detailed discussion with the patient and/or guardian regarding: the historical points, exam findings, and any diagnostic results supporting the discharge/admit diagnosis, the need for outpatient follow up, to return to the emergency department if symptoms worsen or persist or if there are any questions or concerns that arise at home. Special discussion: I discussed with the patient/guardian in detail that at this point there is no indication for admission to the hospital. It is understood, however, that if the symptoms persist or worsen the patient needs to return immediately for re-evaluation. Based on the history and exam findings, there is no indication for further emergent testing or inpatient evaluation. I discussed with the patient/guardian the need to see a dentist for further evaluation of the symptoms. Administered Medications: 13:26 Drug: Rocephin (cefTRIAXone) 1 grams Route: IM; Site: left gluteus; lr4 13:32 Follow up: Response: No adverse reaction lr4 Disposition Summary: 07/20/21 13:14 Discharge Ordered Location: Home rn Problem: new rn Symptoms: are unchanged rn Condition: Stable rn Diagnosis - Cellulitis of face rn - Dental caries, unspecified rn Followup: rn - With: Private Physician - When: As needed - Reason: Recheck today's complaints, Re-evaluation by your physician Discharge Instructions: - Discharge Summary Sheet rn - Cellulitis, Adult rn - Dental Caries, Adult rn - Dental Pain rn Forms: - Medication Reconciliation Form rn - Thank You Letter 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
--- NOTE | 2021-07-20 13:15 | ER ---
Nurse's Notes [facility] Name: Rebecca West Age: 31 yrs Sex: Female : 1990 Arrival Date: 07/20/2021 Time: 12:46 Bed 24 Private MD: Diagnosis: Cellulitis of face;Dental caries, unspecified Presentation: 07/20 13:27 Chief complaint: Patient states: R side facial swelling and dental pain. Coronavirus lr4 screen: Client denies travel out of the [place] in the last 14 days. At this time, the client does not indicate any symptoms associated with coronavirus-19. Ebola Screen: Patient negative for fever greater than or equal to 101.5 degrees Fahrenheit, and additional compatible Ebola Virus Disease symptoms. Initial Sepsis Screen: Does the patient meet any 2 criteria? No. Patient's initial sepsis screen is negative. Does the patient have a suspected source of infection? No. Patient's initial sepsis screen is negative. Risk Assessment: Do you want to hurt yourself or someone else? Patient reports no desire to harm self or others. Onset of symptoms was July 18, 2021. 13:27 Acuity: MARCOS 4 lr4 13:27 Method Of Arrival: Ambulatory lr4 13:29 Chief complaint: Patient states: R jaw pain and swelling r/t cavity in upper molar, ph denies fever, N/V. Coronavirus screen: Vaccine status: Patient reports being unvaccinated. Ebola Screen: No symptoms or risks identified at this time. Initial Sepsis Screen: Does the patient meet any 2 criteria? No. Patient's initial sepsis screen is negative. Does the patient have a suspected source of infection? No. Patient's initial sepsis screen is negative. Risk Assessment: Do you want to hurt yourself or someone else? Patient reports no desire to harm self or others. 13:29 Method Of Arrival: Ambulatory ph Triage Assessment: 13:29 General: Appears in no apparent distress. uncomfortable, Behavior is calm, cooperative. lr4 Pain: Complains of pain in mouth and R face Pain currently is 10 out of 10 on a pain scale. EENT: Reports pain in right cheek, mouth and right jaw Pain is 10 out of 10 on a pain scale. Neuro: No deficits noted. Cardiovascular: No deficits noted. Respiratory: No deficits noted. 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 - Social history:: Smoking status: unknown. - Family history:: not pertinent. - Hospitalizations: : No recent hospitalization is reported. Screenin:07 Abuse screen: Denies threats or abuse. Nutritional screening: No deficits noted. ss7 Tuberculosis screening: No symptoms or risk factors identified. Fall Risk None identified. Assessment: 13:06 General: Appears uncomfortable, Behavior is calm, cooperative, appropriate for age. ss7 Pain: Complains of pain in dental. Neuro: No deficits noted. Cardiovascular: No deficits noted. Respiratory: No deficits noted. GI: No deficits noted. : No deficits noted. EENT: Poor dentition noted. swelling noted to the right upper jaw. Derm: No deficits noted. 13:31 Reassessment: Patient is alert, oriented x 3, equal unlabored respirations, skin lr4 warm/dry/pink. Patient states symptoms have not improved. Vital Signs: 13:29 BP 121 / 74; Pulse 94; Resp 18; Temp 97.8; Pulse Ox 96% on R/A; Weight 49.9 kg; Height ph 5 ft. 4 in. (162.56 cm); 13:29 Body Mass Index 18.88 (49.90 kg, 162.56 cm) ph ED Course: 12:46 Patient arrived in ED. mr 13:03 Kandace Núñez, RN is Primary Nurse. ss7 13:04 Thomas Desai MD is Attending Physician. rn 13:07 Patient has correct armband on for positive identification. Bed in low position. Call ss7 light in reach. Warm blanket given. 13:07 No provider procedures requiring assistance completed. Patient did not have IV access ss7 during this emergency room visit. 13:29 Triage completed. lr4 13:32 Arm band placed on right wrist. lr4 Administered Medications: 13:26 Drug: Rocephin (cefTRIAXone) 1 grams Route: IM; Site: left gluteus; lr4 13:32 Follow up: Response: No adverse reaction lr4 Outcome: 13:14 Discharge ordered by MD. alvarez 13:32 Discharged to lr4 13:32 Condition: stable 13:32 Discharge instructions given to patient. 13:32 Patient left the ED. lr4 Signatures: Loree Majano Roman, MD MD rn Hall, Patricia, RN RN ph Smith, Shana, RN RN 7 Janette Hamilton RN RN lr4
[2021-07-20] MEDS ORDERED: WATER FOR INJ,STERILE 10 ML ONE (13:22)
[2021-07-20] MEDS ORDERED: CEFTRIAXONE 1000 MG/VIAL ONE (13:22)
[2021-07-20 13:45] VITALS: BP 121/74; TEMP 97.8; O2SAT 96
== END 2021-07-20 13:32 | disposition home or self-care (01) ==
LOC: ER 12:39
DX: K13.79 Other lesions of oral mucosa (principal); K12.2 Cellulitis and abscess of mouth; K02.9 Dental caries, unspecified
CPT/HCPCS: 96372; 99283

== ENCOUNTER 2024-05-15 13:53 | Emergency (ER) | payer OTHER ==
--- NOTE | 2024-05-15 15:22 | RAD REPORT ---
EXAM: Chest Pa And Lat (2 Views) HISTORY: 33 years Female COUGH COMPARISON: None. FINDINGS: LUNGS/PLEURA: The lungs are clear. No pleural effusions or pneumothorax. No pulmonary edema. MEDIASTINUM: The mediastinal silhouette is within normal limits. CARDIAC: The cardiac silhouette is within normal limits. UPPER ABDOMEN: No significant abnormality. BONES: No acute abnormality. LINES/TUBES/OTHER: N/A IMPRESSION: No evidence of acute cardiopulmonary disease.
[2024-05-15 15:24] LABS: SARS-CoV-2 Antigen CONTROL BLUE LINE VIS/BG OK; SARS-CoV-2 Antigen Rapid Res Negative (Negative)
--- NOTE | 2024-05-15 15:41 | EDPHYS ---
Physician Documentation [facility] Name: Rebecca West Age: 33 yrs Sex: Female : 1990 Arrival Date: 05/15/2024 Time: 13:53 Bed 11 Private MD: ED Physician Rashid Goyal HPI: 05/15 14:15 This 33 yrs old Female presents to ER via Ambulatory with complaints of Cold Symptoms. cp 14:15 The patient or guardian reports cough, that is intermittent. cp 14:15 Onset: The symptoms/episode began/occurred yesterday. Associated signs and symptoms: cp Pertinent positives: sore throat, headache and body aches. Severity of symptoms: in the emergency department the symptoms are unchanged despite home interventions. 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 - Infectious Disease History:: Denies. - Social history:: Smoking status: unknown. ROS: 14:20 Constitutional: Positive for body aches, Negative for chills, fever, poor PO intake, cp 14:20 Eyes: Negative for injury, pain, redness, and discharge, cp 14:20 ENT: Positive for sore throat, Negative for drainage from ear(s), ear pain, difficulty swallowing, difficulty handling secretions, 14:20 Cardiovascular: Negative for chest pain, 14:20 Respiratory: Positive for cough, Negative for shortness of breath, wheezing, 14:20 Abdomen/GI: Negative for abdominal pain, vomiting, diarrhea, constipation, 14:20 : Negative for urinary symptoms, 14:20 Neuro: Positive for headache, Negative for altered mental status, dizziness, weakness, 14:20 All other systems are negative, Exam: 14:20 Head/Face: Normocephalic, atraumatic. cp 14:20 Constitutional: The patient appears in no acute distress, alert, awake, non-toxic, well developed, well nourished, 14:20 Eyes: Periorbital structures: appear normal, Conjunctiva: normal, no exudate, no injection, Sclera: no appreciated abnormality, Lids and lashes: appear normal, bilaterally, 14:20 ENT: External ear(s): are unremarkable, Ear canal(s): are normal, clear, TM's: dullness, bilaterally, Nose: is normal, Mouth: Lips: moist, Oral mucosa: moist, Posterior pharynx: Airway: no evidence of obstruction, patent, Tonsils: no enlargement, no exudate, erythema, that is mild, exudate, is not appreciated, 14:20 Neck: ROM/movement: Meningeal signs: are not present, nuchal rigidity, is not appreciated, Lymph nodes: no appreciated lymphadenopathy, 14:20 Chest/axilla: Inspection: normal, 14:20 Cardiovascular: Rate: normal, Rhythm: regular, 14:20 Respiratory: the patient does not display signs of respiratory distress, Respirations: normal, no use of accessory muscles, no retractions, labored breathing, is not present, Breath sounds: are clear throughout, no decreased breath sounds, no stridor, no wheezing, 14:20 Abdomen/GI: Exam negative for discomfort, distension, guarding, Inspection: abdomen appears normal, 14:20 Skin: no rash present. Vital Signs: 14:10 BP 113 / 61; Pulse 84; Resp 16; Temp 97.5; Pulse Ox 99% ; bp MDM: 13:58 Medical Screening Exam initiated cp 14:20 Differential diagnosis: bronchitis, flu, URI, viral illness, strep throat, pneumonia. cp 15:40 Antibiotic administration: Not indicated, the patient has a suspected viral illness. cp Data reviewed: vital signs, nurses notes, lab test result(s), radiologic studies, plain films. Counseling: I had a detailed discussion with the patient and/or guardian regarding the historical points, exam findings, and any diagnostic results supporting the discharge/admit diagnosis, lab results, radiology results, to return to the emergency department if symptoms worsen or persist or if there are any questions or concerns that arise at home. 15:40 Special discussion: I discussed with the patient/guardian that the patient's current cp presentation does not indicate dosing of antibiotics. They should follow-up with their primary care provider and return if the symptoms persist or progress. 05/15 14:10 Order name: SARS RAPID bp 05/15 14:10 Order name: Flu bp 05/15 14:10 Order name: Strep bp 05/15 15:27 Order name: Throat Culture EDMS 05/15 14:10 Order name: Chest Pa And Lat (2 Views) XRAY; Complete Time: 15:23 bp 05/15 15:23 Interpretation: Report reviewed. cp Administered Medications: No medications were administered Disposition Summary: 05/15/24 15:40 Discharge Ordered Notes: Location: Home cp Problem: new cp Symptoms: are unchanged cp Condition: Stable cp Diagnosis - Cough cp Followup: cp - With: Private Physician - When: 2 - 3 days - Reason: Worsening of condition Discharge Instructions: - Discharge Summary Sheet cp - Cough, Adult cp Forms: - Medication Reconciliation Form cp - Antibiotic Education cp - Prescription Opioid Use cp - Patient Portal Instructions cp - Leadership Thank You Letter cp Prescriptions: - Tessalon Perles 100 mg Oral Capsule - take 1 capsule ORAL route every 8 hours As needed; 15 capsule; Refills: 0, cp Product Selection Permitted Addendum: 05/19/2024 07:25 Co-signature as Attending Physician, Rashid Goyal MD I agree with the assessment and c kang plan of care. Signatures: Dispatcher [employer] EDRashid Waggoner MD MD cha Page, Corey, PA PA cp Naseem Carter, RN RN bp Corrections: (The following items were deleted from the chart) 05/15 23:29 15:20 Antibiotic administration: Not indicated, the patient has a suspected viral cp illness, cp 23: 15:20 Data reviewed: vital signs, nurses notes, lab test result(s), radiologic studies, cp plain films, cp :29 15:20 Counseling: I had a detailed discussion with the patient and/or guardian cp regarding the historical points, exam findings, and any diagnostic results supporting the discharge/admit diagnosis, lab results, radiology results, to return to the emergency department if symptoms worsen or persist or if there are any questions or concerns that arise at home, : 15:20 Special discussion: I discussed with the patient/guardian that the patient's cp current presentation does not indicate dosing of antibiotics. They should follow-up with their primary care provider and return if the symptoms persist or progress, cp
--- NOTE | 2024-05-15 15:41 | ER ---
Nurse's Notes [facility] Name: Rebecca West Age: 33 yrs Sex: Female : 1990 Arrival Date: 05/15/2024 Time: 13:53 Bed 11 Private MD: Diagnosis: Cough Presentation: 05/15 14:10 Chief complaint: Patient states: PAIN WHEN SWALLOWING, COUGH, SUBJECTIVE FEVER, bp [place]AL[place]IA. Coronavirus screen: At this time, the client does not indicate any symptoms associated with coronavirus-19. Ebola Screen: No symptoms or risks identified at this time. Initial Sepsis Screen: Does the patient meet any 2 criteria? No. Patient's initial sepsis screen is negative. Does the patient have a suspected source of infection? No. Patient's initial sepsis screen is negative. Risk Assessment: Do you want to hurt yourself or someone else? Patient reports no desire to harm self or others. Onset of symptoms is unknown. 14:10 Method Of Arrival: Ambulatory bp 14:10 Acuity: MARCOS 4 bp Triage Assessment: 15:45 General: Appears in no apparent distress. Behavior is calm, cooperative, appropriate ap3 for age. Neuro: Level of Consciousness is awake, alert, obeys commands, Oriented to person, place, time, situation, Appropriate for age. Cardiovascular: Patient's skin is warm and dry. Respiratory: Airway is patent Respiratory effort is even, unlabored, Respiratory pattern is regular, symmetrical. 15:46 Pain: Denies pain. 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 - Infectious Disease History:: Denies. - Social history:: Smoking status: unknown. Screenin:45 [facility] ED Fall Risk Assessment (Adult) History of falling in the last 3 months, ap3 including since admission No falls in past 3 months (0 pts) Confusion or Disorientation No (0 pts) Intoxicated or Sedated No (0 pts) Impaired Gait No (0 pts) Mobility Assist Device Used No (0 pt) Altered Elimination No (0 pt) Score/Fall Risk Level 0 - 2 = Low Risk Oriented to surroundings, Maintained a safe environment, Educated pt \T\ family on fall prevention, incl call for assistance when getting out of bed, Assessed \T\ reinforced patient's understanding of fall precautions, Hourly rounding (assess needs \T\ fall precautionary measures) done, Used ambulatory aids as needed (educated on \T\ assisted with), Used gait belt as appropriate. Abuse screen: Denies threats or abuse. Nutritional screening: No deficits noted. Tuberculosis screening: No symptoms or risk factors identified. Vital Signs: 14:10 BP 113 / 61; Pulse 84; Resp 16; Temp 97.5; Pulse Ox 99% ; bp ED Course: 13:57 Patient arrived in ED. ra3 13:58 Rashid Nuno PA is PHCP. cp 13:58 Rashid Goyal MD is Attending Physician. cp 14:12 Triage completed. bp 14:12 Arm band placed on. bp 15:13 Chest Pa And Lat (2 Views) XRAY In Process Unspecified. EDMS 15:22 Shannon Mcgee, RN is Primary Nurse. ap3 15:46 Patient has correct armband on for positive identification. Bed in low position. Call ap3 light in reach. Provided Education on: discharge instructions. 15:46 No provider procedures requiring assistance completed. Patient did not have IV access ap3 during this emergency room visit. Administered Medications: No medications were administered Medication: 15:45 VIS not applicable for this client. ap3 Outcome: 15:40 Discharge ordered by MD. cp 15:46 Discharged to home ambulatory, ap3 15:46 Condition: good 15:46 Discharge instructions given to patient, Instructed on discharge instructions, follow up and referral plans. medication usage, Demonstrated understanding of instructions, follow-up care, medications, Prescriptions given X 1, 15:47 Patient left the ED. ap3 Signatures: Dispatcher [employer] EDMS Rashid Nuno PA PA cp Peltier, Brian, RN RN bp Prokisch, Amanda, RN RN ap3 Priya Hernandez ra3
[2024-05-15 15:56] VITALS: BP 113/61; TEMP 97.5; O2SAT 99
== END 2024-05-15 15:47 | disposition home or self-care (01) ==
LOC: ER 13:53
DX: R05.9 Cough, unspecified (principal); Z11.52 Encounter for screening for COVID-19
CPT/HCPCS: 36415; 71046; 87070; 87081; 87804; 87811; 99283

== ENCOUNTER 2024-07-06 07:04 | Emergency (ER) | payer OTHER ==
[2024-07-06] MEDS ORDERED: KETOROLAC 30 MG/ML INJ ONE (07:34)
--- NOTE | 2024-07-06 07:43 | EDPHYS ---
Physician Documentation [facility] Name: Rebecca West Age: 34 yrs Sex: Female : 1990 Arrival Date: 07/06/2024 Time: 07:04 Bed 14 Private MD: ED Physician Thomas Desai HPI: 07/06 07:40 This 34 yrs old Female presents to ER via Ambulatory with complaints of Jaw Pain. rn 07:40 The patient presents with pain. The problem is located in the Left upper teeth. Onset: rn The symptoms/episode began/occurred Several months ago. Modifying factors: The symptoms are alleviated by nothing, the symptoms are aggravated by nothing. Severity of symptoms: At their worst the symptoms were moderate, in the emergency department the symptoms are unchanged. The patient has experienced similar episodes in the past. Patient reports chronic pain to the left upper tooth, is intermittent, has bad teeth and unable to see dentist. States at times takes antibiotics from people she knows and pain gets better. Denies any fever or chills. No swelling. No difficulty breathing or swallowing.. 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 - Infectious Disease History:: Denies. - Social history:: Smoking status: Patient reports the use of cigarette tobacco products, denies chronic smoking, but will smoke occasionally, Reported history of juuling and/or vaping. - Family history:: not pertinent. - Hospitalizations: : No recent hospitalization is reported. ROS: 07:40 Constitutional: Negative for fever, chills, and weight loss, ENT: Positive for left rn upper dental pain Exam: 07:40 Constitutional: This is a well developed, well nourished patient who is awake, alert, rn and in no acute distress. ENT: Poor dentition with deep caries and erosion of the majority of her teeth. No gingival swelling or erythema. No purulence. No evidence of dental abscess at this time. No buccal swelling or induration Vital Signs: 07:26 BP 102 / 51; Pulse 48; Resp 18 S; Temp 98(O); Pulse Ox 100% on R/A; Weight 59.42 kg kc6 (R); Height 5 ft. 1 in. (R); Pain 10; 07:26 Body Mass Index 24.75 (59.42 kg, 154.94 cm) [facility] 07:26 Pain Scale: Adult kc6 MDM: 07:12 Medical Screening Exam initiated rn 07:40 Differential diagnosis: dental caries. Data reviewed: vital signs, nurses notes, and as rn a result, I will discharge patient. Counseling: I had a detailed discussion with the patient and/or guardian regarding the historical points, exam findings, and any diagnostic results supporting the discharge/admit diagnosis, the need for outpatient follow up, to return to the emergency department if symptoms worsen or persist or if there are any questions or concerns that arise at home. Special discussion: I discussed with the patient/guardian in detail that at this point there is no indication for admission to the hospital. It is understood, however, that if the symptoms persist or worsen the patient needs to return immediately for re-evaluation. 07:40 Special discussion: Based on the history and exam findings, there is no indication for rn further emergent testing or inpatient evaluation. I discussed with the patient/guardian the need to see a dentist for further evaluation of the symptoms. Administered Medications: 07:43 Drug: Ketorolac IM 30 mg IM once Route: IM; Site: right deltoid; 6 08:03 Follow up: Response: No adverse reaction; Pain is decreased kc6 Disposition Summary: 07/06/24 07:42 Discharge Ordered Notes: Location: Home rn Problem: new rn Symptoms: have improved rn Condition: Stable rn Diagnosis - Dental root caries rn Followup: rn - With: Private Physician - When: As needed - Reason: Recheck today's complaints, Re-evaluation by your physician Discharge Instructions: - Discharge Summary Sheet rn - Dental Caries, Adult rn - Dental Pain rn Forms: - Medication Reconciliation Form rn - 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
--- NOTE | 2024-07-06 07:43 | ER ---
Nurse's Notes [facility] Name: Rebecca West Age: 34 yrs Sex: Female : 1990 Arrival Date: 07/06/2024 Time: 07:04 Bed 14 Private MD: Diagnosis: Dental root caries Presentation: 07/06 07:26 Chief complaint: Patient states: intermittent jaw pain on and off for several months kc6 now. pt states, "Ibuprofen only does so much and I get antibiotics from other people but the pain comes back.". Coronavirus screen: At this time, the client does not indicate any symptoms associated with coronavirus-19. Ebola Screen: No symptoms or risks identified at this time. Initial Sepsis Screen: Does the patient meet any 2 criteria? No. Patient's initial sepsis screen is negative. Does the patient have a suspected source of infection? No. Patient's initial sepsis screen is negative. Risk Assessment: Do you want to hurt yourself or someone else? Patient reports no desire to harm self or others. Onset of symptoms was July 06, 2024. 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 - Infectious Disease History:: Denies. - Social history:: Smoking status: Patient reports the use of cigarette tobacco products, denies chronic smoking, but will smoke occasionally, Reported history of juuling and/or vaping. - Family history:: not pertinent. - Hospitalizations: : No recent hospitalization is reported. Screenin:29 [facility] ED Fall Risk Assessment (Adult) History of falling in the last 3 months, [facility] including since admission No falls in past 3 months (0 pts) Confusion or Disorientation No (0 pts) Intoxicated or Sedated No (0 pts) Impaired Gait No (0 pts) Mobility Assist Device Used No (0 pt) Altered Elimination No (0 pt) Score/Fall Risk Level 0 - 2 = Low Risk Oriented to surroundings, Maintained a safe environment, Educated pt \\T\\ family on fall prevention, incl call for assistance when getting out of bed. Abuse screen: Denies threats or abuse. Denies injuries from another. Nutritional screening: No deficits noted. Tuberculosis screening: No symptoms or risk factors identified. Assessment: 07:29 General: Appears in no apparent distress. comfortable, well groomed, well developed, kc6 Behavior is calm, cooperative, appropriate for age. Pain: Complains of pain in mouth Pain currently is 10 out of 10 on a pain scale. Quality of pain is described as aching, throbbing, Is chronic. Neuro: Level of Consciousness is awake, alert, obeys commands, Oriented to person, place, time, situation, Appropriate for age. Cardiovascular: Capillary refill < 3 seconds. Respiratory: Airway is patent Trachea midline Respiratory effort is even, unlabored, Respiratory pattern is regular, symmetrical. GI: No signs and/or symptoms were reported involving the gastrointestinal system. : No signs and/or symptoms were reported regarding the genitourinary system. EENT: Oral mucosa is moist. Poor dentition noted. Derm: No signs and/or symptoms reported regarding the dermatologic system. Skin is intact, is healthy with good turgor, Skin is pink, warm \\T\\ dry. Musculoskeletal: No signs and/or symptoms reported regarding the musculoskeletal system. Circulation, motion, and sensation intact. Range of motion: intact in all extremities. Vital Signs: 07:26 BP 102 / 51; Pulse 48; Resp 18 S; Temp 98(O); Pulse Ox 100% on R/A; Weight 59.42 kg kc6 (R); Height 5 ft. 1 in. (R); Pain 10/10; 07:26 Body Mass Index 24.75 (59.42 kg, 154.94 cm) kc6 07:26 Pain Scale: Adult kc ED Course: 07:09 Patient arrived in ED. gm2 07:12 Thomas Desai MD is Attending Physician. rn 07:16 Jaelyn Parson RN is Primary Nurse. kc6 07:28 Triage completed. kc6 07:28 Arm band placed on. kc6 07:29 Patient has correct armband on for positive identification. Bed in low position. Call kc light in reach. Side rails up X 1. Pulse ox on. NIBP on. Door closed. Noise minimized. Lights dimmed. Pillow given. Verbal reassurance given. 07:29 No provider procedures requiring assistance completed. Patient maintains SpO2 kc6 saturation greater than 95% on room air. 08:03 Provided Education on: f/u with dentist. kc6 08:03 Patient did not have IV access during this emergency room visit. kc6 Administered Medications: 07:43 Drug: Ketorolac IM 30 mg IM once Route: IM; Site: right deltoid; kc6 08:03 Follow up: Response: No adverse reaction; Pain is decreased kc6 Medication: 08:03 VIS not applicable for this client. kc6 Outcome: 07:42 Discharge ordered by . rn 08:03 Discharged to home ambulatory, kc6 08:03 Condition: good 08:03 Discharge instructions given to patient, Instructed on discharge instructions, follow up and referral plans. medication usage, Demonstrated understanding of instructions, follow-up care, medications, Prescriptions given X 2, 08:03 Patient left the ED. kc6 Signatures: Thomas Desai MD MD rn Campbell, Kaitlyn, RN RN Elisabeth Linares gm2
[2024-07-06 08:09] VITALS: BP 102/51; TEMP 98; O2SAT 100
== END 2024-07-06 08:03 | disposition home or self-care (01) ==
LOC: ER 07:04
DX: K02.7 Dental root caries (principal); F17.210 Nicotine dependence, cigarettes, uncomplicated
CPT/HCPCS: 96372; 99284

== ENCOUNTER 2024-08-12 07:12 | Emergency (ER) | payer OTHER ==
[2024-08-12 07:59] LABS: Influenza A Ag Negative; Influenza B Ag Negative; SARS-CoV-2 Antigen Rapid Res Negative (Negative)
--- NOTE | 2024-08-12 08:33 | RAD REPORT ---
EXAMINATION: ONE VIEW CHEST XR CLINICAL INDICATION: Female, 34 years old.,COUGH TECHNIQUE: Frontal chest projection is submitted. Examination is limited by patient positioning and t echnique. COMPARISON: 05/15/2024 FINDINGS: The lungs are well inflated and clear. No pneumothorax or sizable effusion. The heart is normal in s ize. Mediastinal contours are unremarkable. IMPRESSION: No acute intrathoracic abnormalities.
--- NOTE | 2024-08-12 08:48 | ER ---
Nurse's Notes [facility] Name: Rebecca West Age: 34 yrs Sex: Female : 1990 Arrival Date: 08/12/2024 Time: 07:12 Bed 20 Private MD: Diagnosis: Upper respiratory infection, viral illness Presentation: 08/12 07:21 Chief complaint: Patient states: Body aches, congestion, fever, nausea, CORBIN started ll1 yesterday. Coworkers are also sick. Coronavirus screen: Client denies travel out of the [place] in the last 14 days. congestion, fatigue, headache, muscle pain, nausea, Client presents with at least one sign or symptom that may indicate coronavirus-19. Standard/surgical mask placed on the client. Ebola Screen: Patient denies travel to an Ebola-affected area in the 21 days before illness onset. Initial Sepsis Screen: Does the patient meet any 2 criteria? No. Patient's initial sepsis screen is negative. Does the patient have a suspected source of infection? No. Patient's initial sepsis screen is negative. Risk Assessment: Do you want to hurt yourself or someone else? Patient reports no desire to harm self or others. Onset of symptoms was August 11, 2024. 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 - Infectious Disease History:: Denies. - Social history:: Smoking status: Reported history of juuling and/or vaping. Screenin:[address] [facility] ED Fall Risk Assessment (Adult) History of falling in the last 3 months, ll1 including since admission No falls in past 3 months (0 pts) Confusion or Disorientation No (0 pts) Intoxicated or Sedated No (0 pts) Impaired Gait No (0 pts) Mobility Assist Device Used No (0 pt) Altered Elimination No (0 pt) Score/Fall Risk Level 0 - 2 = Low Risk Maintained a safe environment, Hourly rounding (assess needs \T\ fall precautionary measures) done. Abuse screen: Denies threats or abuse. Nutritional screening: No deficits noted. Tuberculosis screening: No symptoms or risk factors identified. Assessment: 07:23 General: Appears in no apparent distress. Behavior is calm, cooperative, appropriate ll1 for age. Pain: Complains of pain in face Quality of pain is described as aching. Neuro: Reports headache. GI: Reports nausea. EENT: Reports nasal congestion. Musculoskeletal: Reports body aches. Vital Signs: 07:21 BP 115 / 66; Pulse 70; Resp 15; Temp 98.1; Pulse Ox 99% ; Weight 60.33 kg; Height 5 ft. ll1 1 in. ; 09:00 BP 109 / 55; Pulse 57; Resp 14; Pulse Ox 100% on R/A; ll1 07:21 Body Mass Index 25.13 (60.33 kg, 154.94 cm) ll1 ED Course: 07:15 Patient arrived in ED. gl 07:17 Erika Cortez MD is Attending Physician. sp3 07:20 Ariana Dumont, SANTO is Primary Nurse. ll1 07:20 Arm band placed on Patient placed in an exam room, on a stretcher. ll1 07:23 Triage completed. ll1 07:24 No provider procedures requiring assistance completed. ll1 07:25 Patient has correct armband on for positive identification. Provided Education on: ER ll1 procedures and process. 07:36 COVID-19 Ag + Flu A+B Ag Sent. ll1 07:36 Group A Streptococcus Rapid Sent. ll1 07:36 COVID swab sent to lab. Flu and/or RSV swab sent to lab. Strep swab sent to lab. ll1 07:37 Door closed. Warm blanket given. PO fluids given. Diet: Patient given snack. ll1 08:08 CXR XRAY In Process Unspecified. EDMS 08:08 Note: Asked patient if there was any chance of , she stated that she was tm4 unsure. Told the patient we would recommend a UPT and she refused. Patient signed radiology form stating that she was ok with the xray regardless. Form scanned into PACS. . 09:57 Patient did not have IV access during this emergency room visit. ll1 Administered Medications: No medications were administered Medication: 07:25 VIS not applicable for this client. ll1 Outcome: 08:47 Discharge ordered by . sp3 09:01 Patient left the ED. ll1 09:01 Discharged to home ambulatory, 1 09:01 Condition: stable 09:01 Discharge instructions given to patient, Instructed on discharge instructions, follow up and referral plans. medication usage, Demonstrated understanding of instructions, follow-up care, medications, Prescriptions given X 2, Signatures: Dispatcher [employer] EDMarcelle Mcwilliams tm4 Ariana Dumont RN RN ll1 Erika Cortez MD MD sp3 Silvia Monsalve, Reg Reg gl
--- NOTE | 2024-08-12 08:49 | EDPHYS ---
Physician Documentation [facility] Name: Rebecca West Age: 34 yrs Sex: Female : 1990 Arrival Date: 08/12/2024 Time: 07:12 Bed 20 Private MD: ED Physician Erika Cortez HPI: 08/12 07:51 This 34 yrs old Female presents to ER via Ambulatory with complaints of cough and sp3 congestion. 07:51 34-year-old female with history of chronic UTI now presents to the ED with upper sp3 respiratory symptoms including cough and congestion and subjective "warmth". She denies any objectively measured fever, chest pain, shortness of breath, Rosalio pain, nausea, vomiting, diarrhea, rash, syncope, or any other signs or symptoms on ROS at this time.. 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 - Infectious Disease History:: Denies. - Social history:: Smoking status: Reported history of juuling and/or vaping. ROS: 07:53 Constitutional: Negative for fever, chills, and weight loss, Eyes: Negative for injury, sp3 pain, redness, and discharge, ENT: Negative for injury, pain, and discharge, Neck: Negative for injury, pain, and swelling, Cardiovascular: Negative for chest pain, palpitations, and edema, Abdomen/GI: Negative for abdominal pain, nausea, vomiting, diarrhea, and constipation, Back: Negative for injury and pain, MS/Extremity: Negative for injury and deformity, Skin: Negative for injury, rash, and discoloration, Neuro: Negative for headache, weakness, numbness, tingling, and seizure, Psych: Negative for depression, anxiety, suicide ideation, homicidal ideation, and hallucinations, Allergy/Immunology: Negative for hives, rash, and allergies, Endocrine: Negative for neck swelling, polydipsia, polyuria, polyphagia, and marked weight changes, 07:53 All other systems are negative, Exam: 07:53 Constitutional: This is a well developed, well nourished patient who is awake, alert, sp3 and in no acute distress. Head/Face: Normocephalic, atraumatic. Eyes: Pupils equal round and reactive to light, extra-ocular motions intact. Lids and lashes normal. Conjunctiva and sclera are non-icteric and not injected. Cornea within normal limits. Periorbital areas with no swelling, redness, or edema. ENT: Nares patent. No nasal discharge, no septal abnormalities noted. External auditory canals are clear. Oropharynx with no redness, swelling, or masses, exudates, or evidence of obstruction, uvula midline. Mucous membranes moist. Neck: Trachea midline, no thyromegaly or masses palpated, and no cervical lymphadenopathy. Supple, full range of motion without nuchal rigidity, or vertebral point tenderness. No Meningismus. Chest/axilla: Normal chest wall appearance and motion. Nontender with no deformity. No lesions are appreciated. Cardiovascular: Regular rate and rhythm with a normal S1 and S2. No gallops, murmurs, or rubs. Normal PMI, no JVD. No pulse deficits. Abdomen/GI: Soft, non-tender, with normal bowel sounds. No distension or tympany. No guarding or rebound. No evidence of tenderness throughout. Back: No spinal tenderness. No costovertebral tenderness. Full range of motion. Skin: Warm, dry with normal turgor. Normal color with no rashes, no lesions, and no evidence of cellulitis. MS/ Extremity: Pulses equal, no cyanosis. Neurovascular intact. Full, normal range of motion. Neuro: Awake and alert, GCS 15, oriented to person, place, time, and situation. Cranial nerves II-XII grossly intact. Motor strength 5/5 in all extremities. Sensory grossly intact. Cerebellar exam normal. Normal gait. Psych: Awake, alert, with orientation to person, place and time. Behavior, mood, and affect are within normal limits. 07:53 Respiratory: Patient with mild dry cough. Vital signs normal and patient is afebrile. 99% pulse oxygenation on room air., Vital Signs: 07:21 BP 115 / 66; Pulse 70; Resp 15; Temp 98.1; Pulse Ox 99% ; Weight 60.33 kg; Height 5 ft. ll1 1 in. ; 09:00 BP 109 / 55; Pulse 57; Resp 14; Pulse Ox 100% on R/A; ll1 07:21 Body Mass Index 25.13 (60.33 kg, 154.94 cm) ll1 MDM: 07:17 Medical Screening Exam initiated sp3 07:54 Data reviewed: vital signs, nurses notes, old medical records, lab test result(s), sp3 radiologic studies. ED course: 34-year-old female with upper respiratory symptoms. Differential diagnose includes viral illness, upper respiratory infection, COVID-19, influenza, strep pharyngitis, bronchitis, pneumonia, among others. I am not highly suspicious of acute coronary syndrome, PE, TAD, sepsis, shock or any other critical process or pathology at this time. Workup included chest x-ray and general swabs. Disposition pending workup and patient course of probable discharge on supportive care as needed.. 08:47 ED course: Full workup negative. Will discharge patient on Tessalon Perles and Medrol sp3 Dosepak.. 08/12 07:24 Order name: COVID-19 Ag + Flu A+B Ag; Complete Time: 08:47 sp3 08/12 07:24 Order name: Group A Streptococcus Rapid; Complete Time: 08:47 sp3 08/12 07:52 Order name: Throat Culture [facility] 08/12 07:24 Order name: CXR XRAY; Complete Time: 08:47 sp3 Administered Medications: No medications were administered Disposition Summary: 08/12/24 08:47 Discharge Ordered Notes: Location: Home sp3 Condition: Stable sp3 Diagnosis - Upper respiratory infection, viral illness sp3 Followup: sp3 - With: Private Physician - When: Upon discharge from the Emergency Department - Reason: Continuance of care Discharge Instructions: - Discharge Summary Sheet ll1 - Upper Respiratory Infection, Adult sp3 Forms: - Work release form ll1 - Medication Reconciliation Form sp3 - Antibiotic Education sp3 - Prescription Opioid Use sp3 - Patient Portal Instructions sp3 - Leadership Thank You Letter sp3 Prescriptions: - Tessalon Perles 100 mg Oral Capsule - take 1 capsule ORAL route every 8 hours As needed; 15 capsule; Refills: 0, sp3 Product Selection Permitted - Medrol (Ravin) 4 mg Oral Tablets, Dose Pack - take 1 tablet ORAL route as directed - follow package instructions; 1 packet; sp3 Refills: 0, Product Selection Permitted Signatures: Dispatcher [employer] Ariana Schofield RN RN ll1 Erika Cortez MD MD sp3 Corrections: (The following items were deleted from the chart) : 07:25 Chest Single View+RAD.RAD.BRZ ordered. EDMS EDMS 07:25 COVID-19 Ag + Flu A+B Ag+I.LAB.BRZ ordered. EDMS EDMS : 07:25 Group A Streptococcus Rapid Sc+I.LAB.BRZ ordered. EDMS EDMS
[2024-08-12 09:06] VITALS: BP 115/66; TEMP 98.1; O2SAT 99
== END 2024-08-12 09:01 | disposition home or self-care (01) ==
LOC: ER 07:12
DX: J06.9 Acute upper respiratory infection, unspecified (principal); B34.9 Viral infection, unspecified; Z11.52 Encounter for screening for COVID-19
CPT/HCPCS: 36415; 71045; 87070; 87428

== ENCOUNTER 2024-08-23 16:31 | Emergency (ER) | payer OTHER ==
[2024-08-23] MEDS ORDERED: NA CHLORIDE 0.9% 1,000 ML ONE (17:27)
[2024-08-23] MEDS ORDERED: IBUPROFEN 200 MG TAB PO ONE (17:29)
[2024-08-23 17:33] LABS: Absolute Basophils 0.1 K/uL (0-0.5); Absolute Lymphocytes (CBC) 1.1 K/uL (0.7-4.9); Basophils % 0.6 % (0-1.3); Eosinophils % 0.3 % (0-4.4); Hematocrit 34.2 % (36.0-45.0); Lymphocytes % 11.2 % (15.3-44.8); MCHC 35.1 g/dL (32.0-36.0); MCV 88.5 fL (80-100); MPV 9.5 fL (7.6-11.3); Neutrophils % 77.9 % (41.7-73.7); Platelets 177 thou/uL (152-406); RBC Red Blood Cell Count 3.86 M/uL (3.86-4.86); Red Cell Distribution Width 12.7 % (12.1-15.2)
[2024-08-23 17:38] LABS: Urine Bacteria <20 /HPF (<20); Urine Bilirubin NEGATIVE (Negative); Urine Blood Trace (Negative); Urine Clarity Extremely Turbid (Clear); Urine Color Yellow (Yellow); Urine Crystals Unidentified Few /HPF (None Seen); Urine Culture Reflex Order REFLEXED; Urine Glucose NEGATIVE (Negative); Urine Ketones 1+ (Negative); Urine Microscopic Reflex YN ORDER UMIC; Urine Mucus Slight /HPF (None Seen); Urine Nitrite NEGATIVE (Negative); Urine Protein TRACE (Negative); Urine Urobilinogen 2+ (Normal); Urine WBC 20-50 /HPF (<5)
[2024-08-23 17:47] LABS: Albumin 3.6 g/dL (3.4-5.0); Albumin/Globulin Ratio 0.9 (1.1-1.8); Anion Gap 9.4 mEq/L (5.0-15.0); Bilirubin Total 0.6 mg/dL (0.2-1.0); Potassium 3.4 mEq/L (3.5-5.1); Protein, Total 7.6 g/dL (6.4-8.2)
[2024-08-23 18:09] LABS: Monoscreen NEG (NEG)
--- NOTE | 2024-08-23 18:16 | EDPHYS ---
Physician Documentation [facility] Name: Rebecca West Age: 34 yrs Sex: Female : 1990 Arrival Date: 08/23/2024 Time: 16:31 Bed DX1 Private MD: ED Physician Thomas Desai HPI: 08/23 16:50 This 34 yrs old Female presents to ER via Ambulatory with complaints of Fever, body kb aches. 16:50 Pt is a 34 year old female who presents for fever and bodyaches for 2 weeks. States she kb was seen here at onset of symptoms and diagnosed with a URI. States she doesn't have any of the cough, congestion, runny nose anymore, but fever and bodyaches have continued. Also reports pain to left low back that radiates down left leg. . 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 - Infectious Disease History:: Denies. - Social history:: Smoking status: Patient denies any tobacco usage or history of. ROS: 16:51 Constitutional: As per HPI kb Exam: 16:51 Constitutional: This is a well developed, well nourished patient who is awake, alert, kb and in no acute distress. Head/Face: Normocephalic, atraumatic. ENT: Moist Mucous membranes Cardiovascular: Regular rate Respiratory: Respirations even and unlabored. No increased work of breathing. Talking in full sentences Abdomen/GI: Soft, non-tender. No distention Skin: Warm, dry with normal turgor. Normal color. MS/ Extremity: Pulses equal, no cyanosis. Neurovascular intact. Full, normal range of motion. Neuro: Awake and alert, GCS 15, oriented to person, place, time, and situation. Vital Signs: 16:43 BP 136 / 72; Pulse 105; Resp 18; Temp 99.6(O); Pulse Ox 97% on R/A; Weight 58.97 kg; ld1 Height 5 ft. 1 in. ; Pain 9/10; 18:18 BP 121 / 54; Pulse 98; Resp 16; Pulse Ox 99% on R/A; iw 16:43 Body Mass Index 24.56 (58.97 kg, 154.94 cm) ld1 16:43 Pain Scale: Adult ld1 MDM: 16:35 Medical Screening Exam initiated kb 18:15 Differential diagnosis: flu, covid, viral illness, dehydration, abnormal electrolytes, kb mono. Data reviewed: vital signs, nurses notes. Test considered but Not performed: CT: ct considered but pt has no abd pain or tenderness. Symptoms appear viral in etiology. Counseling: I had a detailed discussion with the patient and/or guardian regarding the historical points, exam findings, and any diagnostic results supporting the discharge/admit diagnosis, lab results, the need for outpatient follow up, a family practitioner, to return to the emergency department if symptoms worsen or persist or if there are any questions or concerns that arise at home. 08/23 17:07 Order name: Urinalysis w/ reflexes; Complete Time: 17:40 kb 08/23 17:07 Order name: CBC with Diff; Complete Time: 17:46 kb 08/23 17:07 Order name: CMP; Complete Time: 17:49 kb 08/23 17:07 Order name: [place] Screen Profile; Complete Time: 18:10 kb 08/23 17:41 Order name: Urine Culture EDMS 08/23 17:07 Order name: IV Start; Complete Time: 17:27 kb Administered Medications: 17:32 Drug: NS 0.9% IV 1000 ml IV at 1000 ml once; to be given as a bolus over 60 minutes iw Route: IV; Rate: 1000 ml; Site: left antecubital; 18:33 Follow up: IV Status: Completed infusion iw 17:37 Drug: Ibuprofen PO 400 mg PO once Route: PO; iw 18:30 Follow up: Response: No adverse reaction iw 18:32 Drug: Potassium Chloride PO 20 mEq PO once Route: PO; iw 18:32 Follow up: Response: No adverse reaction iw 18:33 Follow up: Response: No adverse reaction iw 18:32 Drug: Amoxicillin-Clavulanate PO 875 mg PO once Route: PO; iw 18:33 Follow up: Response: No adverse reaction iw Disposition: 08/24 16:10 Co-signature as Attending Physician, Thomas Desai MD I reviewed the patient's care rn provided by the Advanced Practice Provider and agree with the diagnosis and treatment plan. Disposition Summary: 08/23/24 18:16 Discharge Ordered Notes: Location: Home kb Condition: Stable kb Diagnosis - UTI/ Urinary tract infection, site not specified kb - Fever, unspecified kb Followup: kb - With: Emergency Department - When: As needed - Reason: Worsening of condition Followup: kb - With: Private Physician - When: 2 - 3 days - Reason: Recheck today's complaints, Continuance of care, Re-evaluation by your physician Discharge Instructions: - Discharge Summary Sheet kb - Urinary Tract Infection, Adult, [id number]-[id number] kb - Viral Respiratory Infection, [id number] kb Forms: - Medication Reconciliation Form kb - Antibiotic Education kb - Prescription Opioid Use kb - Patient Portal Instructions kb - Leadership Thank You Letter kb - Work release form bd Prescriptions: - Augmentin 875-125 mg Oral Tablet - take 1 tablet ORAL route every 12 hours for 10 days; 20 tablet; Refills: 0, kb Product Selection Permitted Signatures: Dispatcher [employer] Nasrin Butt, CLOUD ENGINEER-C CLOUD ENGINEER-Bernadette Bee, RN Thomas Toth MD MD rn Sims, Lauren, RN RN ld1
--- NOTE | 2024-08-23 18:16 | ER ---
Nurse's Notes [facility] Name: Rebecca West Age: 34 yrs Sex: Female : 1990 Arrival Date: 08/23/2024 Time: 16:31 Bed DX1 Private MD: Diagnosis: UTI/ Urinary tract infection, site not specified;Fever, unspecified Presentation: 08/23 16:43 Chief complaint: Patient states: Body aches \T\ fever X 2 weeks. Pt reporting left/middle ld1 back pain radiates down left leg. Coronavirus screen: At this time, the client does not indicate any symptoms associated with coronavirus-19. Ebola Screen: No symptoms or risks identified at this time. Initial Sepsis Screen: Does the patient meet any 2 criteria? No. Patient's initial sepsis screen is negative. Does the patient have a suspected source of infection? No. Patient's initial sepsis screen is negative. Risk Assessment: Do you want to hurt yourself or someone else? Patient reports no desire to harm self or others. Onset of symptoms was August 23, 2024. 16:43 Method Of Arrival: Ambulatory ld1 16:43 Acuity: MARCOS 3 ld1 Triage Assessment: 16:44 General: Appears in no apparent distress. uncomfortable, Behavior is calm, cooperative, ld1 appropriate for age. Pain: Complains of pain in lumbar area and left low back Pain radiates to left leg Pain currently is 9 out of 10 on a pain scale. Quality of pain is described as throbbing, Pain began suddenly, Is continuous. EENT: No signs and/or symptoms were reported regarding the EENT system. Neuro: Level of Consciousness is awake, alert, obeys commands, Oriented to person, place, time, situation. Cardiovascular: Capillary refill < 3 seconds Patient's skin is warm and dry. Respiratory: Airway is patent Respiratory effort is even, unlabored. GI: Abdomen is flat, non-distended. : No signs and/or symptoms were reported regarding the genitourinary system. Derm: No signs and/or symptoms reported regarding the dermatologic system. Musculoskeletal: No signs and/or symptoms reported regarding the musculoskeletal system. 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 - Infectious Disease History:: Denies. - Social history:: Smoking status: Patient denies any tobacco usage or history of. Screenin:56 [facility] ED Fall Risk Assessment (Adult) History of falling in the last 3 months, iw including since admission No falls in past 3 months (0 pts) Confusion or Disorientation No (0 pts) Intoxicated or Sedated No (0 pts) Impaired Gait No (0 pts) Mobility Assist Device Used No (0 pt) Altered Elimination No (0 pt) Score/Fall Risk Level 0 - 2 = Low Risk Oriented to surroundings, Maintained a safe environment. Abuse screen: Denies threats or abuse. Nutritional screening: No deficits noted. Tuberculosis screening: No symptoms or risk factors identified. Assessment: 17:20 General: Appears in no apparent distress. uncomfortable, Behavior is calm, cooperative. iw Pain: Complains of pain in left leg and left low back and lumbar area Pain currently is 8 out of 10 on a pain scale. Neuro: Level of Consciousness is awake, alert, obeys commands, Oriented to person, place, time, situation, Moves all extremities. Full function. Cardiovascular: Patient's skin is warm and dry. Respiratory: Respiratory effort is even, unlabored, Respiratory pattern is regular, symmetrical. GI: Abdomen is. Derm: Skin is intact, is healthy with good turgor. Musculoskeletal: Range of motion: intact in all extremities. 18:20 Reassessment: Patient appears in no apparent distress at this time. Patient and/or iw family updated on plan of care and expected duration. Pain level reassessed. Patient is alert, oriented x 3, equal unlabored respirations, skin warm/dry/pink. Vital Signs: 16:43 BP 136 / 72; Pulse 105; Resp 18; Temp 99.6(O); Pulse Ox 97% on R/A; Weight 58.97 kg; ld1 Height 5 ft. 1 in. ; Pain 9/10; 18:18 BP 121 / 54; Pulse 98; Resp 16; Pulse Ox 99% on R/A; iw 16:43 Body Mass Index 24.56 (58.97 kg, 154.94 cm) ld1 16:43 Pain Scale: Adult ld1 ED Course: 16:34 Patient arrived in ED. mr 16:35 Nasrin Rendon FNP-C [facility] kb 16:35 Thomas Desai MD is Attending Physician. kb 16:44 Triage completed. ld1 16:47 Arm band placed on right wrist. ld1 16:54 Initial lab(s) drawn, by me, sent to lab. Inserted saline lock: 22 gauge in left iw antecubital area, using aseptic technique. Blood collected. Flushed with 10 mL NS. 17:27 Bernadette English, RN is Primary Nurse. iw 17:56 Patient has correct armband on for positive identification. iw 18:30 No provider procedures requiring assistance completed. IV discontinued, intact, iw bleeding controlled, No redness/swelling at site. Pressure dressing applied. Administered Medications: 17:32 Drug: NS 0.9% IV 1000 ml IV at 1000 ml once; to be given as a bolus over 60 minutes iw Route: IV; Rate: 1000 ml; Site: left antecubital; 18:33 Follow up: IV Status: Completed infusion iw 17:37 Drug: Ibuprofen PO 400 mg PO once Route: PO; iw 18:30 Follow up: Response: No adverse reaction iw 18:32 Drug: Potassium Chloride PO 20 mEq PO once Route: PO; iw 18:32 Follow up: Response: No adverse reaction iw 18:33 Follow up: Response: No adverse reaction iw 18:32 Drug: Amoxicillin-Clavulanate PO 875 mg PO once Route: PO; iw 18:33 Follow up: Response: No adverse reaction iw Medication: 17:30 VIS not applicable for this client. iw Outcome: 18:16 Discharge ordered by . kb 18:31 Discharged to home ambulatory, iw 18:31 Condition: good 18:31 Discharge instructions given to patient, Instructed on discharge instructions, follow up and referral plans. Demonstrated understanding of instructions, follow-up care, 18:32 Patient left the ED. iw Signatures: Nasrin Rendon FNP-C FORESTRY HUNTER-Ckb Loree Majano, Reg Reg Bernadette English, RN RN iw Kalani Decker RN RN ld1
[2024-08-23] MEDS ORDERED: POTASSIUM CL SA 10 MEQ TAB PO ONE (18:26)
[2024-08-23] MEDS ORDERED: AMOX/K CLAV 875 MG TAB ONE (18:26)
[2024-08-24 20:15] VITALS: TEMP 99.6
[2024-08-24 20:16] VITALS: BP 121/54; O2SAT 99
== END 2024-08-23 18:32 | disposition home or self-care (01) ==
LOC: ER 16:31
DX: N39.0 Urinary tract infection, site not specified (principal)
CPT/HCPCS: 87088; 85025; 81001; 87086; 36415; 86308; 80053; 96360; 99284; J7030

== ENCOUNTER 2024-09-11 09:05 | Emergency (ER) | payer OTHER ==
[2024-09-11 10:02] LABS: Absolute Basophils 0.1 K/uL (0-0.5); Absolute Eosinophils 0.1 K/uL (0-0.5); Absolute Monocytes 0.6 K/uL (0.1-1.3); Absolute Neutrophil 5.8 K/uL (1.8-8.0); Basophils % 0.9 % (0-1.3); Eosinophils % 1.7 % (0-4.4); Hematocrit 36.9 % (36.0-45.0); Lymphocytes % 23.5 % (15.3-44.8); MCH 30.4 pg (27.0-35.0); MCHC 35.2 g/dL (32.0-36.0); MCV 86.4 fL (80-100); MPV 9.5 fL (7.6-11.3); Monocytes % 6.4 % (3.3-12.3); Neutrophils % 67.5 % (41.7-73.7); Platelets 221 thou/uL (152-406); RBC Red Blood Cell Count 4.27 M/uL (3.86-4.86); Red Cell Distribution Width 13.1 % (12.1-15.2)
[2024-09-11 10:12] LABS: Sqamous Epithelial <5 /HPF (None Seen); Urine Bacteria None Seen /HPF (<20); Urine Micro Reflex YN NO BILL MICROSCOPIC; Urine RBC >50 /HPF (None Seen); Urine WBC <5 /HPF (<5)
[2024-09-11 10:25] LABS: Anion Gap 6.7 mEq/L (5.0-15.0); Potassium 3.7 mEq/L (3.5-5.1)
--- NOTE | 2024-09-11 11:24 | RAD REPORT ---
EXAM: Transvaginal OB HISTORY: Abd pain;Vaginal bleeding COMPARISON: None TECHNIQUE: Multiple grayscale and color Doppler images were obtained in a transvaginal pelvic ultraso und. Spectral analysis of the Doppler waveforms of the ovaries were performed. FINDINGS: UTERUS: There is an intrauterine gestational sac. pole present. No yolk sac identified. The ges tational sac is ovoid and abnormal. Rutherford-rump length: 1.2 cm which estimates gestational age at 7 week 2 day. No heart tones identified. No evidence of subchorionic hemorrhage. No free fluid is seen in the pelvis. RIGHT OVARY: Nonvisualized LEFT OVARY: Nonvisualized IMPRESSION: Single gestation without heart tones identified and crown-rump length measuring 12 mm which is diagnostic of a failed first trimester.
--- NOTE | 2024-09-11 11:40 | EDPHYS ---
Physician Documentation [facility] Name: Rebecca West Age: 34 yrs Sex: Female : 1990 Arrival Date: 09/11/2024 Time: 09:05 Bed 5 Private MD: ED Physician Thomas Desai HPI: 09/11 09:57 This 34 yrs old Female presents to ER via Ambulatory with complaints of dr5 Vaginal Bleeding, Abdominal Pain. 09:57 Patient is a 31-year-old female coming in with lower abdominal pain and vaginal dr5 bleeding with clots that started 5 days ago. Patient reports that she had a positive test yesterday. Patient reports pain is all over the lower abdomen and not on one particular side. Patient denies fever, chest pain, cough, shortness of breath, dysuria.. 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 - Infectious Disease History:: Denies. - Social history:: Smoking status: Patient denies any tobacco usage or history of. ROS: 09:57 Constitutional: as per hpi dr5 Exam: :57 Constitutional: This is a well developed, well nourished patient who is awake, alert, dr5 and in no acute distress. Head/Face: Normocephalic, atraumatic. ENT: Nares patent. No nasal discharge, no septal abnormalities noted. Tympanic membranes are normal and external auditory canals are clear. Oropharynx with no redness, swelling, or masses, exudates, or evidence of obstruction, uvula midline. Mucous membranes moist. Neck: Trachea midline, no thyromegaly or masses palpated, and no cervical lymphadenopathy. Supple, full range of motion without nuchal rigidity, or vertebral point tenderness. No Meningismus. Chest/axilla: Normal chest wall appearance and motion. Nontender with no deformity. No lesions are appreciated. Cardiovascular: Regular rate and rhythm with a normal S1 and S2. Normal PMI, no JVD. No pulse deficits. Respiratory: Lungs have equal breath sounds bilaterally, clear to auscultation. No rales, rhonchi or wheezes noted. No increased work of breathing, no retractions or nasal flaring. Back: No spinal tenderness. No costovertebral tenderness. Full range of motion. Skin: Warm, dry with normal turgor. Normal color with no rashes, no lesions, and no evidence of cellulitis. 09:57 Abdomen/GI: Inspection: abdomen appears normal, Bowel sounds: normal, Palpation: mild abdominal tenderness, in the suprapubic area, right lower quadrant and left lower quadrant, Vital Signs: 09:25 BP 137 / 82; Pulse 75; Resp 16; Temp 97.7(TE); Pulse Ox 99% ; Weight 60.33 kg; Height 5 ll1 ft. 1 in. ; Pain 10/10; 12:02 BP 128 / 82; Pulse 80; Resp 18 S; Pulse Ox 99% on R/A; kc6 09:25 Body Mass Index 25.13 (60.33 kg, 154.94 cm) ll1 09:25 Pain Scale: Adult ll1 MDM: 09:16 Medical Screening Exam initiated dr5 16:53 Differential diagnosis: threatened Ab, inevitable Ab, complete Ab, retained Ab, missed dr5 Ab. Data reviewed: vital signs, nurses notes, lab test result(s), radiologic studies. Care significantly affected by the following chronic conditions: UTI. Care significantly affected by the following Social Determinants of Health: Poor access to healthcare and/or lack of insurance, Poor access to transportation, Problems related to employment. Counseling: I had a detailed discussion with the patient and/or guardian regarding the historical points, exam findings, and any diagnostic results supporting the discharge/admit diagnosis, the presence of at least one elevated blood pressure reading (>120/80) during this emergency department visit, lab results, radiology results, the need for outpatient follow up, for definitive care, a family practitioner, an OB/Gyne specialist, to return to the emergency department if symptoms worsen or persist or if there are any questions or concerns that arise at home. 16:56 ED course: Discussed likely threatened miscarriage. Recommended patient follow-up with dr5 OB on Friday if pain continues. All labs and US printed and given to patient for her follow-up. All questions answered. Patient reports her pain has improved and is feeling much better.. 09/11 09:28 Order name: Abo/rh Typing; Complete Time: 10:30 [facility] 09/11 09:28 Order name: Basic Metabolic Panel; Complete Time: 10:30 dr5 09/11 09:28 Order name: CBC with Diff; Complete Time: 10:07 dr5 09/11 09:28 Order name: Quantitative Hcg; Complete Time: 10:30 [facility] 09/11 10:02 Order name: Urine Microscopic Only; Complete Time: 10:23 EDMS 09/11 09:28 Order name: US Transvaginal Ob; Complete Time: 11:29 dr5 09/11 09:28 Order name: IV Saline Lock; Complete Time: 09:57 [facility] 09/11 09:28 Order name: Labs collected and sent; Complete Time: 09:57 [facility] 09/11 09:28 Order name: NPO; Complete Time: 09:48 dr5 Administered Medications: 12:02 Drug: Ketorolac IVP 15 mg IVP once Route: IVP; Site: right forearm; kc6 Disposition Summary: 09/11/24 11:40 Discharge Ordered Notes: Location: Home dr5 Condition: Stable dr5 Diagnosis - Threatened dr5 Followup: dr5 - With: Emergency Department - When: As needed - Reason: Worsening of condition Followup: dr5 - With: Private Physician - When: 1 - 2 days - Reason: Recheck today's complaints, Continuance of care, Re-evaluation by your physician Discharge Instructions: - Discharge Summary Sheet dr5 - Threatened Miscarriage dr5 Forms: - Medication Reconciliation Form dr5 - Patient Portal Instructions dr5 - Leadership Thank You Letter dr5 Signatures: Dispatcher [employer] Ariana Schofield RN RN ll1 Jaelyn Parson RN RN kc6 Loree Velasco RN RN mb9 Fletcher Scott, PONY RIDE ATTENDANT-C PONY RIDE ATTENDANT-Cdr5 Corrections: (The following items were deleted from the chart) 09: 09:28 ABO/RH TYPING+BB.LAB.BRZ ordered. EDMS EDMS : 09:28 BASIC METABOLIC PANEL+C.LAB.BRZ ordered. EDMS EDMS 09: 09:28 CBC+H.LAB.BRZ ordered. EDMS EDMS 09: 09:28 QUANTITATIVE HCG+C.LAB.BRZ ordered. EDMS EDMS 10:02 09:28 UA W/ Microscopic+U.LAB.BRZ ordered. EDMS EDMS
--- NOTE | 2024-09-11 11:40 | ER ---
Nurse's Notes [facility] Name: Rebecca West Age: 34 yrs Sex: Female : 1990 Arrival Date: 09/11/2024 Time: 09:05 Bed 5 Private MD: Diagnosis: Threatened Presentation: 09/11 09:25 Chief complaint: Patient states: Vaginal bleeding for 5 days. G5, P3. Coronavirus ll1 screen: Client denies travel out of the [place] in the last 14 days. At this time, the client does not indicate any symptoms associated with coronavirus-19. Ebola Screen: Patient denies travel to an Ebola-affected area in the 21 days before illness onset. Initial Sepsis Screen: Does the patient meet any 2 criteria? No. Patient's initial sepsis screen is negative. Does the patient have a suspected source of infection? No. Patient's initial sepsis screen is negative. Risk Assessment: Do you want to hurt yourself or someone else? Patient reports no desire to harm self or others. Onset of symptoms was September 06, 2024. 09:25 Method Of Arrival: Ambulatory ll1 09:25 Acuity: MARCOS 3 ll1 Triage Assessment: 09:26 General: Appears distressed, uncomfortable, Behavior is calm, cooperative, appropriate ll1 for age. Pain: Complains of pain in abdomen Quality of pain is described as aching, crampy. GI: Reports lower abdominal pain, cramping. : Reports vaginal bleeding that is with clots, heavy flow G5, P3, positive test last weekend. 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 - Infectious Disease History:: Denies. - Social history:: Smoking status: Patient denies any tobacco usage or history of. Screenin:58 [facility] ED Fall Risk Assessment (Adult) History of falling in the last 3 months, mb9 including since admission No falls in past 3 months (0 pts) Confusion or Disorientation No (0 pts) Intoxicated or Sedated No (0 pts) Impaired Gait No (0 pts) Mobility Assist Device Used No (0 pt) Altered Elimination No (0 pt) Score/Fall Risk Level 0 - 2 = Low Risk Oriented to surroundings, Maintained a safe environment, Educated pt \T\ family on fall prevention, incl call for assistance when getting out of bed. Abuse screen: Denies threats or abuse. Nutritional screening: No deficits noted. Tuberculosis screening: No symptoms or risk factors identified. Assessment: 09:57 General: Appears in no apparent distress. Behavior is calm, cooperative. Pain: mb9 Complains of pain in pelvis Pain does not radiate. Pain currently is 8 out of 10 on a pain scale. Quality of pain is described as throbbing, Pain began suddenly. Neuro: Abrams Agitation-Sedation Scale (RASS): 0 - Alert and Calm Level of Consciousness is awake, alert, obeys commands, Oriented to person, place, time, situation, Appropriate for age. Cardiovascular: Patient's skin is warm and dry. Respiratory: Airway is patent Respiratory effort is even, unlabored, Respiratory pattern is regular, symmetrical. GI: Abdomen is flat, non-distended, Bowel sounds present X 4 quads. Abd is soft Abdomen is tender to palpation in suprapubic area, right lower quadrant and left lower quadrant. : Urine is blood tinged, Reports vaginal bleeding that is bright red, with clots, heavy flow. EENT: No signs and/or symptoms were reported regarding the EENT system. Derm: Skin is pink, warm \T\ dry. Musculoskeletal: Range of motion: intact in all extremities. 12:02 Reassessment: Patient appears in no apparent distress at this time. No changes from kc6 previously documented assessment. Patient and/or family updated on plan of care and expected duration. Pain level reassessed. Patient is alert, oriented x 3, equal unlabored respirations, skin warm/dry/pink. Patient states feeling better. Patient states symptoms have improved. Vital Signs: 09:25 BP 137 / 82; Pulse 75; Resp 16; Temp 97.7(TE); Pulse Ox 99% ; Weight 60.33 kg; Height 5 ll1 ft. 1 in. ; Pain 10/10; 12:02 BP 128 / 82; Pulse 80; Resp 18 S; Pulse Ox 99% on R/A; kc6 09:25 Body Mass Index 25.13 (60.33 kg, 154.94 cm) ll1 09:25 Pain Scale: Adult ll1 ED Course: 09:09 Patient arrived in ED. al6 09:14 Fletcher Scott FNP-C [facility]. dr5 09:14 Thomas Desai MD is Attending Physician. dr5 09:26 Triage completed. ll1 09:27 Arm band placed on. ll1 09:48 Loree Velasco, RN is Primary Nurse. mb9 09:52 Radiology exam delayed due to test not completed at this time. aa4 09:57 Abo/rh Typing Sent. mb9 09:57 Basic Metabolic Panel Sent. mb9 09:57 CBC with Diff Sent. mb9 09:57 Quantitative Hcg Sent. mb9 10:00 Placed in gown. Bed in low position. Call light in reach. Side rails up X 1. Provided mb9 Education on: press call light if needing anything. Client placed on continuous cardiac and pulse oximetry monitoring. NIBP monitoring applied. 10:53 US Transvaginal Ob In Process Unspecified. EDMS 12:02 No provider procedures requiring assistance completed. IV discontinued, intact, kc6 bleeding controlled, No redness/swelling at site. Pressure dressing applied. Administered Medications: 12:02 Drug: Ketorolac IVP 15 mg IVP once Route: IVP; Site: right forearm; kc6 Medication: 10:00 VIS not applicable for this client. mb9 Outcome: 11:40 Discharge ordered by MD. dr5 12:02 Discharged to home ambulatory, with significant other, kc6 12:02 Condition: good 12:02 Discharge instructions given to patient, significant other, Instructed on discharge instructions, follow up and referral plans. Demonstrated understanding of instructions, follow-up care, 12:02 Patient left the ED. kc6 Signatures: Dispatcher [employer] EDSD Shannon Sutton aa4 Ariana Dumont RN RN ll1 Jaelyn Parson RN RN kc6 Loree Velasco, SANTO RN mb9 Fletcher Scott FNP-C NITRIC ACID CONCENTRATOR OPERATOR-Cdr5 Rachel Villarreal al6 Corrections: (The following items were deleted from the chart) 09:53 09:25 BP 137 / 82; Pulse 75bpm; Resp 16bpm; Pulse Ox 99%; 60.33 kg; Height 5 ft. 1 in.; ll1 BMI: 25.1; Pain 02/04, Adult; ll1 10:02 09:57 UA W/ Microscopic+U.LAB.BRZ drawn and sent. mb9 EDMS
[2024-09-11] MEDS ORDERED: KETOROLAC 30 MG/ML INJ ONE (11:57)
[2024-09-11 12:11] VITALS: TEMP 97.7; O2SAT 99
[2024-09-11 12:12] VITALS: BP 128/82
== END 2024-09-11 12:02 | disposition home or self-care (01) ==
LOC: ER 09:05
DX: O20.0 Threatened abortion (principal)
CPT/HCPCS: 36415; 76817; 80048; 81015; 84702; 85025; 86900; 86901; 96374; 99284

== ENCOUNTER 2025-02-07 13:12 | Emergency (ER) | payer OTHER ==
--- NOTE | 2025-02-07 15:23 | RAD REPORT ---
EXAMINATION: Transvaginal OB COMPARISON: None. HISTORY: ABD PAIN TECHNIQUE: Real-time ultrasound was performed through the pelvis. A transvaginal scan was performed t o better visualize the intrauterine contents and adnexa. FINDINGS: There is a single living intrauterine . Cardiac activity measured 160 BPM. There is no visible subchorionic hemorrhage. Both ovaries are visualized and appear unremarkable. Mild pelvic free fluid. Measurements and Calculations: [place] rump length 17 mm, consistent with a sonographic age of 8 weeks, 1 days. Estimated date of del shelli is 09/18/2025 IMPRESSION: Single living intrauterine , with a composite sonographic age of 8 weeks, 1 days.
[2025-02-07 15:39] LABS: Absolute Lymphocytes (CBC) 1.1 K/uL (0.7-4.9); Hematocrit 39.2 % (36.0-45.0); Hemoglobin 13.2 g/dL (12.0-15.0); MCH 29.0 pg (27.0-35.0); MCHC 33.7 g/dL (32.0-36.0); MCV 86.0 fL (80-100); MPV 9.8 fL (7.6-11.3); Nucleated Red Blood Cells % 0.1 % (0-0); RBC Red Blood Cell Count 4.56 M/uL (3.86-4.86); White Blood Count 12.90 thou/uL (4.3-10.9)
[2025-02-07 15:40] LABS: Nucleated RBC Absolute Count 0.0 (0-0)
[2025-02-07 15:41] LABS: Urine Microscopic Reflex YN NO UMIC
[2025-02-07] MEDS ORDERED: NA CHLORIDE 0.9% 1,000 ML ONE (15:53)
[2025-02-07] MEDS ORDERED: ONDANSETRON 4 MG/2 ML VIAL ONE (15:53)
[2025-02-07 16:15] LABS: ALT/SGPT 32.0 U/L (13-56); AST/SGOT 21.0 U/L (15-37); Albumin 3.5 g/dL (3.4-5.0); Albumin/Globulin Ratio 0.9 (1.1-1.8); Alkaline Phosphatase 86.0 U/L (45-117); Anion Gap 11.9 mEq/L (5.0-15.0); BUN Blood Urea Nitrogen 11.0 mg/dL (7-18); Globulin 4.0 g/dL (2.3-3.5); Glucose Level 77.0 mg/dL (74-106); HCG, Quantitative 176095.0 mIU/mL (1-3); Lipase 22.0 U/L (13-75); Potassium 3.9 mEq/L (3.5-5.1)
[2025-02-07 16:39] LABS: Blood Morphology Comment NOT SEEN (NOT SEEN); White Blood Cell Scan OK (OK)
--- NOTE | 2025-02-07 16:41 | ER ---
Nurse's Notes [facility] Name: Rebecca West Age: 34 yrs Sex: Female : 1990 Arrival Date: 02/07/2025 Time: 13:12 Bed 25 Private MD: Diagnosis: Vomiting of , unspecified Presentation: 02/07 13:37 Chief complaint: Patient states: n/v since this morning. Patient did just find out she me1 is . Has OB appt on Friday. LMP: 12/17/24. Coronavirus screen: Vaccine status: Patient reports being unvaccinated. Ebola Screen: No symptoms or risks identified at this time. Initial Sepsis Screen: Does the patient meet any 2 criteria? No. Patient's initial sepsis screen is negative. Does the patient have a suspected source of infection? No. Patient's initial sepsis screen is negative. Risk Assessment: Do you want to hurt yourself or someone else? Patient reports no desire to harm self or others. Onset of symptoms was February 07, 2025 at 08:00. 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 - Infectious Disease History:: Denies. - Social history:: Smoking status: Patient/guardian denies using tobacco, but has a distant history of tobacco abuse. Screenin:27 [facility] ED Fall Risk Assessment (Adult) History of falling in the last 3 months, jb4 including since admission No falls in past 3 months (0 pts) Confusion or Disorientation No (0 pts) Intoxicated or Sedated No (0 pts) Impaired Gait No (0 pts) Mobility Assist Device Used No (0 pt) Altered Elimination No (0 pt) Score/Fall Risk Level 0 - 2 = Low Risk Oriented to surroundings, Maintained a safe environment. Abuse screen: Denies threats or abuse. Nutritional screening: No deficits noted. Tuberculosis screening: No symptoms or risk factors identified. Assessment: 16:11 General: Appears in no apparent distress. comfortable, Behavior is calm, cooperative, jb4 appropriate for age. Pain: Complains of pain in abdomen Pain does not radiate. Pain currently is 5 out of 10 on a pain scale. Neuro: Level of Consciousness is awake, alert, obeys commands, Oriented to person, place, time, situation. Cardiovascular: Patient's skin is warm and dry. Respiratory: Airway is patent Respiratory effort is even, unlabored, Respiratory pattern is regular, symmetrical. GI: Abdomen is flat, non-distended, Reports nausea, vomiting. Derm: Skin is intact, Skin is pink, warm \T\ dry. 17:27 Reassessment: Patient appears in no apparent distress at this time. Patient and/or jb4 family updated on plan of care and expected duration. Pain level reassessed. Patient is alert, oriented x 3, equal unlabored respirations, skin warm/dry/pink. Vital Signs: 13:37 BP 115 / 56; Pulse 65; Resp 16; Temp 98.6; Pulse Ox 98% ; Weight 54.43 kg; Height 5 ft. me1 1 in. ; Pain 5/10; 16:03 BP 97 / 58; Pulse 49; Resp 16; Pulse Ox 98% on R/A; jb4 17:27 BP 99 / 58; Pulse 58; Resp 16; Pulse Ox 100% on R/A; jb4 13:37 Body Mass Index 22.67 (54.43 kg, 154.94 cm) me1 13:37 Pain Scale: Adult tx1 ED Course: 13:16 Patient arrived in ED. cj3 13:20 Nasrin Rendon FNP-C [facility]. kb 13:20 Thomas Desai MD is Attending Physician. kb 13:39 Triage completed. me1 13:39 Arm band placed on Patient placed in waiting room. me1 15:10 Transvaginal Ob In Process Unspecified. EDMS 15:35 Initial lab(s) drawn, by manager labor delivery, sent to lab. Inserted saline lock: 20 gauge in left ts3 antecubital area, using aseptic technique. Blood collected. Flushed with 10 mL NS. 15:35 Urine collected: clean catch specimen, sent to lab. ts3 17:27 Patient has correct armband on for positive identification. Bed in low position. Call jb4 light in reach. Side rails up X 1. Provided Education on: discharge instructions.. 17:27 No provider procedures requiring assistance completed. IV discontinued, intact, jb4 bleeding controlled, No redness/swelling at site. Pressure dressing applied. Administered Medications: 16:03 Drug: Ondansetron IVP 4 mg IVP once; over 2 minutes Route: IVP; Site: left antecubital; jb4 16:03 Drug: NS 0.9% IV 1000 ml IV at 1 bolus Per protocol; to be given as a bolus over 60 jb4 minutes Route: IV; Rate: 1 bolus; Site: left antecubital; Medication: 16:11 VIS not applicable for this client. jb4 Outcome: 16:41 Discharge ordered by . dilan 17:27 Discharged to home ambulatory, jb4 17:27 Condition: stable 17:27 Discharge instructions given to patient, Instructed on discharge instructions, follow up and referral plans. Demonstrated understanding of instructions, follow-up care, 17:30 Patient left the ED. jb4 Signatures: Dispatcher [employer] EDCA Nasrin Rendon, BRAN-C BIN PACKER-CkPj Warner RN RN jb4 Yael Barnhart RN RN me1 Gypsy Seymour cj3 Roopa Cruz ts3 Corrections: (The following items were deleted from the chart) 13:40 13:39 Social history: Smoking status: Patient denies any tobacco usage or history of. 1 martina 16:06 16:03 BP 97 / 58; Pulse 94bpm; Resp 16bpm; Pulse Ox 98% RA; jb4 jb4
--- NOTE | 2025-02-07 16:41 | EDPHYS ---
Physician Documentation [facility] Name: Rebecca West Age: 34 yrs Sex: Female : 1990 Arrival Date: 02/07/2025 Time: 13:12 Bed 25 Private MD: ED Physician Thomas Desai HPI: 02/07 16:39 This 34 yrs old Female presents to ER via Ambulatory with complaints of Vomiting, kb Abdominal Pain. 16:39 Pt is a 34 year old female who presents for nausea, vomiting and abd pain that started kb this morning. states she recently found out she was and has her first OB appt scheduled for Friday. Denies fever, diarrhea. LMP 12/17/24. 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 - Infectious Disease History:: Denies. - Social history:: Smoking status: Patient/guardian denies using tobacco, but has a distant history of tobacco abuse. ROS: 16:38 Constitutional: As per HPI kb Exam: 16:38 Constitutional: This is a well developed, well nourished patient who is awake, alert, kb and in no acute distress. Head/Face: Normocephalic, atraumatic. ENT: Moist Mucous membranes Cardiovascular: Regular rate Respiratory: Respirations even and unlabored. No increased work of breathing. Talking in full sentences Abdomen/GI: Soft, non-tender. No distention Skin: Warm, dry with normal turgor. Normal color. MS/ Extremity: Pulses equal, no cyanosis. Neurovascular intact. Full, normal range of motion. Neuro: Awake and alert, GCS 15, oriented to person, place, time, and situation. Vital Signs: 13:37 BP 115 / 56; Pulse 65; Resp 16; Temp 98.6; Pulse Ox 98% ; Weight 54.43 kg; Height 5 ft. me1 1 in. ; Pain 5/10; 16:03 BP 97 / 58; Pulse 49; Resp 16; Pulse Ox 98% on R/A; jb4 17:27 BP 99 / 58; Pulse 58; Resp 16; Pulse Ox 100% on R/A; jb4 13:37 Body Mass Index 22.67 (54.43 kg, 154.94 cm) me1 13:37 Pain Scale: Adult me1 MDM: 13:22 Medical Screening Exam initiated kb 16:39 Differential diagnosis: viral gastroenteritis, Morning sickness, dehydration, abnormal kb electrolytes, hyperemesis gravidarum. Data reviewed: vital signs, nurses notes. Counseling: I had a detailed discussion with the patient and/or guardian regarding the historical points, exam findings, and any diagnostic results supporting the discharge/admit diagnosis, lab results, radiology results, the need for outpatient follow up, an OB/Gyne specialist, to return to the emergency department if symptoms worsen or persist or if there are any questions or concerns that arise at home. ED course: Patient tolerating p.o. intake, will follow-up with OB as scheduled. 02/07 14:29 Order name: CBC with Diff; Complete Time: 16:41 kb 02/07 14:29 Order name: CMP; Complete Time: 16:20 kb 02/07 14:29 Order name: Lipase; Complete Time: 16:20 kb 02/07 14:29 Order name: Abo/rh Typing; Complete Time: 16:10 kb 02/07 14:29 Order name: Test, Urine; Complete Time: 15:52 kb 02/07 14:29 Order name: Quantitative Hcg; Complete Time: 16:20 kb 02/07 14:29 Order name: UA Rfx [place] Cult if indicated; Complete Time: 15:43 kb 02/07 15:44 Order name: CBC Smear Scan; Complete Time: 16:41 EDMS 02/07 14:29 Order name: US Transvaginal Ob; Complete Time: 15:24 kb 02/07 14:29 Order name: IV Saline Lock; Complete Time: 15:34 kb 02/07 14:29 Order name: Labs collected and sent; Complete Time: 15:34 kb 02/07 14:29 Order name: NPO; Complete Time: 15:34 kb 02/07 16:20 Order name: PO challenge; Complete Time: 16:44 kb Administered Medications: 16:03 Drug: Ondansetron IVP 4 mg IVP once; over 2 minutes Route: IVP; Site: left antecubital; jb4 16:03 Drug: NS 0.9% IV 1000 ml IV at 1 bolus Per protocol; to be given as a bolus over 60 jb4 minutes Route: IV; Rate: 1 bolus; Site: left antecubital; Disposition: 17:53 Co-signature as Attending Physician, Thomas Desai MD I reviewed the patient's care rn provided by the Advanced Practice Provider and agree with the diagnosis and treatment plan. Disposition Summary: 02/07/25 16:41 Discharge Ordered Notes: Location: Home kb Condition: Stable kb Diagnosis - Vomiting of , unspecified kb Followup: kb - With: Emergency Department - When: As needed - Reason: Worsening of condition Followup: kb - With: Private Physician - When: 2 - 3 days - Reason: Recheck today's complaints, Continuance of care, Re-evaluation by your physician Discharge Instructions: - Discharge Summary Sheet kb - Morning Sickness, [id number] kb Forms: - Medication Reconciliation Form kb - Antibiotic Education kb - Prescription Opioid Use kb - Patient Portal Instructions kb - Leadership Thank You Letter kb Signatures: Dispatcher [employer] EDNasrin Gandara, CULTURIST-C CULTURIST-Ckb Thomas Desai MD MD rn Bryson, James, RN RN jb4 Yael Barnhart RN RN me1 Corrections: (The following items were deleted from the chart) 13:40 13:39 Social history: Smoking status: Patient denies any tobacco usage or history of. me1 me1 14:30 14:30 CBC+H.LAB.BRZ ordered. EDMS EDMS 14:30 14:30 COMPREHENSIVE METABOLIC PANEL+C.LAB.BRZ ordered. EDMS EDMS 14:30 14:30 LIPASE+C.LAB.BRZ ordered. EDMS EDMS 14:30 14:30 ABO/RH TYPING+BB.LAB.BRZ ordered. EDMS EDMS 14:30 14:30 Test, Urine+UC.LAB.BRZ ordered. EDMS EDMS 14:30 14:30 QUANTITATIVE HCG+C.LAB.BRZ ordered. EDMS EDMS 14:30 14:30 UA Rfx [place] Cult if indicated+U.LAB.BRZ ordered. EDMS EDMS 14:30 14:30 Transvaginal Ob+US.RAD.BRZ ordered. EDMS EDMS
[2025-02-07 23:03] VITALS: TEMP 98.6
[2025-02-07 23:06] VITALS: BP 99/58; O2SAT 100
== END 2025-02-07 17:30 | disposition home or self-care (01) ==
LOC: ER 13:12
DX: O21.9 Vomiting of pregnancy, unspecified (principal); R10.9 Unspecified abdominal pain; Z3A.08 8 weeks gestation of pregnancy
CPT/HCPCS: 85025; 36415; 86900; 81025; 86901; 84702; 81003; 83690; 80053; 76817; 96374; 99284; J2405; J7030